=== PATIENT | female | born 1950 | race Caucasian/White ===

== ENCOUNTER 2019-12-31 17:23 | Emergency (ER) | payer MEDICARE, SELFPAY ==
[2019-12-31 18:02] VITALS: BP 144/63; PULSE 79; RESP 16; TEMP 36.6; O2SAT 97
--- NOTE | 2019-12-31 19:11 | ED.GENADULT ---
HPI - General Adult General Chief complaint: Upper Respiratory Infection Stated complaint: cough and chest congestion Time Seen by Provider: 12/31/19 19:11 Source: patient and RN notes reviewed Mode of arrival: ambulatory Limitations: no limitations History of Present Illness HPI narrative: 69-year-old female complains of upper respiratory infection, sore throat, facial congestion, and facial pain for the past 7 days. Symptoms has increased over the last 4 days with increase coughing and facial congestion and pressure. Severe sinus medication and Tylenol without relief. No facial swelling. Constant dry cough with intermittent productive cough. Rhinorrhea and nasal congestion. Sore throat. Pain bilateral. No high fevers, drooling, neck or throat swelling. No chest pain or shortness of breath. No exacerbation factors. Denies nausea, vomiting, and abdominal pain. Tolerating liquids well. Some parts of this dictation were generated by voice recognition software and may contain typographical and/or grammatical inaccuracies. Related Data Home Medications Medication Instructions Recorded Confirmed amitriptyline 25 mg PO HS 12/31/19 12/31/19 calcium carbonate [Calcium 600] 600 mg PO DAILY 12/31/19 12/31/19 calcium carbonate-vitamin D3 1 tablet PO DAILY 12/31/19 12/31/19 [Calcium with Vitamin D] duloxetine 3 mg PO DAILY 12/31/19 12/31/19 hydrochlorothiazide 12.5 mg PO DAILY 12/31/19 12/31/19 losartan 100 mg PO DAILY 12/31/19 12/31/19 rosuvastatin 10 mg PO DAILY 12/31/19 12/31/19 Allergies Allergy/AdvReac Type Severity Reaction Status Date / Time erythromycin base Allergy Unknown Unknown Verified 12/31/19 18:09 morphine Allergy Unknown Itching Verified 10/23/17 10:34 ciprofloxacin AdvReac Unknown Other Verified 10/23/17 10:26 levofloxacin AdvReac Unknown Other Verified 10/23/17 10:26 Review of Systems Review of Systems: Narrative: CONSTITUTIONAL: Denies fever, chills, sweats. EYES: Denies visual changes, redness, discharge. ENT: Complains of rhinorrhea, congestion, facial congestion and pain, sore throat. Denies otalgia. CARDIOVASCULAR: Denies chest pain, palpitations, edema. RESPIRATORY: Denies dyspnea, wheezing. Complains of dry cough, intermittent productive cough. GASTROINTESTINAL: Denies abdominal pain, nausea, vomiting, diarrhea. GENITOURINARY: Denies dysuria, hematuria, abnormal discharge. SKIN: Denies rash or itching. MUSCULOSKELETAL: Denies acute back pain, joint pain, or myalgia. NEUROLOGIC: Denies numbness or focal weakness. PSYCHIATRIC: Denies anxiety or depression. All systems reviewed & are unremarkable except as noted in HPI and below. [facility] Past Medical History Medical History (Updated 01/07/20 @ 00:51 by JAYDEN Benavides) Anxiety Asthma Fibromyalgia Hypercholesteremia Hypertension Rectocele Surgical History Surgical History (Updated 01/07/20 @ 00:53 by JAYDEN Benavides) History of carpal tunnel surgery History of excision of mass Excision of lipomas of RT and LT posterior arm of subcutaneous History of hysterectomy History of repair of rectocele (Unknown) History of tonsillectomy Family History Family History (Updated 01/07/20 @ 00:54 by JAYDEN Benavides) Mother Hypertension Social History Social History (Updated 12/31/19 @ 19:24 by JAYDEN Benavides) Smoking status: Never smoker Second hand tobacco smoke exposure: No Alcohol intake: never Substance use: never Living arrangements: with family Occupation/Education: retired Gender identity (if verbalized by the patient): Female Comments At time of signature, agree with nurse past medical, surgical, social, and family history. There is no relevant family history pertinent to the presenting complaint. Exam Narrative: Exam Narrative: GENERAL: This is a well-nourished, well-developed patient, in no apparent distress. Talks in full sentences and ambulates with steady gait witho
== END 2019-12-31 19:35 | disposition home or self-care (01) ==
PROVIDERS: Emergency Provider Nurse Practitioner Family
DX: J32.9 Chronic sinusitis, unspecified (principal); E78.00 Pure hypercholesterolemia, unspecified; I10 Essential (primary) hypertension; J45.909 Unspecified asthma, uncomplicated; Z90.711 Acquired absence of uterus with remaining cervical stump
CPT/HCPCS: 99213; G0463

== ENCOUNTER 2020-06-16 10:29 | Emergency (ER) | payer MEDICARE, SELFPAY ==
[2020-06-16 10:40] VITALS: BP 146/66; PULSE 74; RESP 18; TEMP 36.4; O2SAT 100
--- NOTE | 2020-06-16 10:40 | ED.EAR ---
HPI - Ear Problem General Chief complaint: Ear Stated complaint: Drainage from ear Time Seen by Provider: 06/16/20 10:41 Source: patient and RN notes reviewed History of Present Illness HPI Narrative: Patient is a 70-year-old female who presents the urgent care with complaints of drainage out of the left ear this morning. Patient states that she saw some wax on her pillowcase and it worried her due to her recent tube removal from the left ear approximately 1 month ago. Patient states that she has had a station tube dysfunction and has had a tube in the ear in the past. She has a follow-up appointment with her ENT in 2 to 3 months to reevaluate her disorder and symptoms. Patient has not put anything in the ear and denies of any other upper respiratory symptoms or fever. Denies of any pain. No other acute complaints. No acute distress noted. Patient read the plan of care. Related Data Home Medications Medication Instructions Recorded Confirmed amitriptyline 25 mg PO HS 12/31/19 12/31/19 calcium carbonate [Calcium 600] 600 mg PO DAILY 12/31/19 12/31/19 calcium carbonate-vitamin D3 1 tablet PO DAILY 12/31/19 12/31/19 [Calcium with Vitamin D] duloxetine 3 mg PO DAILY 12/31/19 12/31/19 hydrochlorothiazide 12.5 mg PO DAILY 12/31/19 12/31/19 losartan 100 mg PO DAILY 12/31/19 12/31/19 rosuvastatin 10 mg PO DAILY 12/31/19 12/31/19 Allergies Allergy/AdvReac Type Severity Reaction Status Date / Time erythromycin base Allergy Unknown Unknown Verified 06/16/20 10:48 morphine Allergy Unknown Itching Verified 06/16/20 10:48 ciprofloxacin AdvReac Unknown Other Verified 06/16/20 10:48 levofloxacin AdvReac Unknown Other Verified 06/16/20 10:48 Review of Systems Review of Systems: Narrative: CONSTITUTIONAL: Denies fever, chills, or sweats. EYES: Denies visual changes, redness, or discharge. ENT: Reports of left ear fullness and wax drainage CARDIOVASCULAR: Denies chest pain, palpitations, or edema. RESPIRATORY: Denies cough or dyspnea. GASTROINTESTINAL: Denies abdominal pain, nausea, vomiting, or diarrhea. GENITOURINARY: Denies dysuria or hematuria. SKIN: Denies rash or itching. MUSCULOSKELETAL: Denies back pain, joint pain, or myalgia. NEUROLOGIC: Denies headache, numbness, or weakness. All other systems reviewed are negative, except as documented in HPI. [facility] Past Medical History Medical History (Updated 06/16/20 @ 10:52 by JAYDEN Gonzalez) Anxiety Asthma Fibromyalgia Hypercholesteremia Hypertension Rectocele Surgical History Surgical History (Updated 01/07/20 @ 00:53 by JAYDEN Benavides) History of carpal tunnel surgery History of excision of mass Excision of lipomas of RT and LT posterior arm of subcutaneous History of hysterectomy History of repair of rectocele (Unknown) History of tonsillectomy Family History Family History (Updated 01/07/20 @ 00:54 by JAYDEN Benavides) Mother Hypertension Social History Social History (Updated 12/31/19 @ 19:24 by JAYDEN Benavides) Smoking status: Never smoker Second hand tobacco smoke exposure: No Alcohol intake: never Substance use: never Gender identity (if verbalized by the patient): Female Comments At the time of my signature, I reviewed and agree with the nursing past medical, surgical, social, and family history. There is no relevant family history pertinent to the patient complaint. Exam Narrative: Exam Narrative: GENERAL: This is a well-nourished, well-developed patient, in no apparent distress. HEAD: normocephalic, atraumatic. EYES: PERRL. Sclera clear/white. Vision is grossly intact. EARS: External ears normal, scant cerumen noted to the left canal without drainage, erythema, edema. Right auditory canals clear and without drainage, TMs normal without perforation. Hearing grossly intact. NOSE: External nose normal with no obvious nasal discharge, nares without redness, no rhinorrhea. THROAT: Mucous membranes moist NE
== END 2020-06-16 11:00 | disposition home or self-care (01) ==
PROVIDERS: Emergency Provider Nurse Practitioner Family
DX: H93.8X2 Other specified disorders of left ear (principal); J45.909 Unspecified asthma, uncomplicated; M79.7 Fibromyalgia; E78.00 Pure hypercholesterolemia, unspecified; I10 Essential (primary) hypertension
CPT/HCPCS: 99211; G0463

== ENCOUNTER 2022-01-31 17:01 | Emergency (ER) | payer MEDICARE, SELFPAY ==
--- NOTE | 2022-01-31 17:16 | ED.EAR ---
HPI - Ear Problem General Chief complaint: Ear Stated complaint: Ear Pain/Dizziness Time Seen by Provider: 01/31/22 17:16 Source: patient Mode of arrival: ambulatory Limitations: no limitations History of Present Illness HPI Narrative: 71 y/o female presented for c/o left ear pain intermittently for 4 days. Endorses sounds like I am talking in a tunnel. States she felt dizzy/room spinning sensation at the onset during a physical therapy session. Since then she woke with room spinning daily. Taking Dramamine with relief. Today she required 2 Dramamine to stop the dizziness. Takes sinus medication occasionally, started taking it again yesterday. Denies headache/tinnitus, sinus pressure/congestion, cough, sore throat, nausea, vomiting, fever, chills. Hx eustachian tube dysfunction, follows with ENT yearly. MD Complaint: ear pain Related Data Home Medications Medication Instructions Recorded Confirmed amitriptyline 25 mg PO HS 12/31/19 01/31/22 calcium carbonate-vitamin D3 1 tablet PO DAILY 12/31/19 01/31/22 [Calcium with Vitamin D] duloxetine 3 mg PO DAILY 12/31/19 01/31/22 losartan 100 mg PO DAILY 12/31/19 01/31/22 rosuvastatin 10 mg PO DAILY 12/31/19 01/31/22 Allergies Allergy/AdvReac Type Severity Reaction Status Date / Time erythromycin base Allergy Unknown Unknown Verified 01/31/22 17:04 morphine Allergy Unknown Itching Verified 01/31/22 17:04 ciprofloxacin AdvReac Unknown Other Verified 01/31/22 17:04 levofloxacin AdvReac Unknown Other Verified 01/31/22 17:04 Review of Systems Review of Systems: CONSTITUTIONAL: Denies malaise, chills, or fever. EYES: Denies visual changes, redness, or discharge. ENT: Denies rhinorrhea, congestion, sinus pain, and sore throat. Reports ear pain CARDIOVASCULAR: Denies chest pain, palpitations, or edema. RESPIRATORY: Denies cough or dyspnea. GASTROINTESTINAL: Denies abdominal pain, nausea, vomiting, diarrhea SKIN: Denies rash or itching. MUSCULOSKELETAL: Denies myalgia. NEUROLOGIC: Denies headache. All systems reviewed & are unremarkable except as noted in HPI and below PMFSH Past Medical History Medical History (Updated 01/31/22 @ 17:27 by Kayleen Mendoza APRN) Anxiety Asthma Fibromyalgia Hypercholesteremia Hypertension Rectocele Surgical History Surgical History History of carpal tunnel surgery History of excision of mass Excision of lipomas of RT and LT posterior arm of subcutaneous History of hysterectomy History of repair of rectocele (Unknown) History of tonsillectomy Family History Family History Mother Hypertension Social History Social History Smoking status: Never smoker Second hand tobacco smoke exposure: No Alcohol intake: never Substance use: never Gender identity (if verbalized by the patient): Female Comments At time of signature, agree with nursing past medical, surgical, social and family history. There is no relevant family history pertinent to the presenting complaint Exam Narrative: GENERAL: Well-appearing HEAD: Normocephalic EYES: conjunctivae clear ENT: Nares clear. Mucous membranes moist.Left canal erythematous, bulging erythematous TM with fluid bubbles; right TM pearly turner with dull light reflex; no tragal tenderness. Oropharynx not erythematous without lesions. NECK: Supple. No lymphadenopathy CHEST: Clear to auscultation, breath sounds equal. HEART: Regular rate and rhythm. No murmur heard. SKIN: Warm, dry, no rash. NEURO: Alert and oriented x3. PSYCH: Normal mood and affect Course Course Emergency Course: Patient is aware of diagnosis, understands and agrees to treatment plan. Anticipatory guidance given. Patient agrees to follow-up as directed and is aware of reasons to seek care at the emergency department. Portions of this record may have be
[2022-01-31 17:17] VITALS: BP 142/59; PULSE 74; RESP 20; TEMP 36.7; O2SAT 100
== END 2022-01-31 17:30 | disposition home or self-care (01) ==
PROVIDERS: Emergency Provider Nurse Practitioner Family
DX: H66.92 Otitis media, unspecified, left ear (principal); J45.909 Unspecified asthma, uncomplicated; M79.7 Fibromyalgia; E78.00 Pure hypercholesterolemia, unspecified; I10 Essential (primary) hypertension
CPT/HCPCS: 99213; G0463

== ENCOUNTER 2023-04-28 16:13 | Emergency (ER) | payer MEDICARE, SELFPAY ==
--- NOTE | ~2023-04-28 | XR_ITS ---
EXAM: XR hip RT min 2V DATE: 04/28/2023 16:43 HISTORY: TWISTING INJURY, ANT PAIN WITH HIP FLEXION . COMPARISON: None available. FINDINGS: Normal mineralization. No fracture or dislocation. No lytic or blastic lesion. Lumbar dege nerative disc disease. Moderate osteitis pubis. Mild right hip osteoarthritis. No erosion or perioste al change. Soft tissues within normal limits. Pelvic phleboliths. IMPRESSION: No acute osseous finding in the right hip. Reviewed, dictated and finalized at location K.
[2023-04-28 16:22] VITALS: BP 148/63; PULSE 81; RESP 16; TEMP 37.4; O2SAT 97
--- NOTE | 2023-04-28 16:23 | ED.FALL ---
HPI - Fall General Chief Complaint: Abdominal Pain Stated Complaint: Fall Injury/Lower Right Side Pain Time Seen by Provider: 04/28/23 16:23 Source: patient and RN notes reviewed History of Present Illness HPI Narrative: Patient is a 73-year-old female presents to urgent care with complaints of right lower abdominal pain with movement. Patient states that she fell on Wednesday and believe she fell onto the left side however she has had some right-sided abdominal pain since the fall. Patient states pain is only exacerbated with laying to sitting position and lifting her legs. Patient states she noticed it while laying on a CT table today, for an unrelated issue. Patient states that she does have fibromyalgia and typically has costochondritis as well as hip discomfort. Patient denies any fever, nausea, vomiting or diarrhea. No other acute complaints. No acute distress noted. Patient aware of plan of care. Some parts of this dictation were generated by voice recognition software and may contain typographical and/or grammatical inaccuracies. Related Data Home Medications Medication Instructions Recorded Confirmed amitriptyline 25 mg tablet 25 mg PO HS 12/31/19 04/28/23 calcium carbonate 600 mg-vitamin 1 tablet PO DAILY 12/31/19 04/28/23 D3 10 mcg (400 unit) tablet (Calcium with Vitamin D) duloxetine 20 mg capsule,delayed 3 mg PO DAILY 12/31/19 04/28/23 release losartan 100 mg tablet 100 mg PO DAILY 12/31/19 04/28/23 rosuvastatin 10 mg tablet 10 mg PO DAILY 12/31/19 04/28/23 dicyclomine 10 mg capsule 10 mg PO TID 04/28/23 04/28/23 hydrochlorothiazide 25 mg tablet mg 04/28/23 04/28/23 meloxicam 7.5 mg tablet 7.5 mg PO DAILY 04/28/23 04/28/23 pantoprazole 40 mg tablet,delayed mg PO 04/28/23 release Allergies Allergy/AdvReac Type Severity Reaction Status Date / Time erythromycin base Allergy Unknown Unknown Verified 04/28/23 16:24 morphine Allergy Unknown Itching Verified 04/28/23 16:24 ciprofloxacin AdvReac Unknown Other Verified 04/28/23 16:24 levofloxacin AdvReac Unknown Other Verified 04/28/23 16:24 Review of Systems Review of Systems: CONSTITUTIONAL: Denies fever, chills, or sweats. EYES: Denies visual changes, redness, or discharge. ENT: Denies rhinorrhea, congestion, sore throat, or otalgia. CARDIOVASCULAR: Denies chest pain, palpitations, or edema. RESPIRATORY: Denies cough or dyspnea. GASTROINTESTINAL: Reports of right lower abdominal pain with movement GENITOURINARY: Denies dysuria or hematuria. SKIN: Denies rash or itching. MUSCULOSKELETAL: Denies back pain, joint pain, or myalgia. NEUROLOGIC: Denies headache, numbness, or weakness. All other systems reviewed are negative, except as documented in HPI. [facility] Past Medical History Medical History (Updated 04/28/23 @ 17:29 by JAYDEN Gonzalez) Anxiety Asthma Fibromyalgia Hypercholesteremia Hypertension Rectocele Surgical History Surgical History History of carpal tunnel surgery History of excision of mass Excision of lipomas of RT and LT posterior arm of subcutaneous History of hysterectomy History of repair of rectocele (Unknown) History of tonsillectomy Family History Family History Mother Hypertension Social History Social History Smoking status: Never smoker Second hand tobacco smoke exposure: No Alcohol intake: never Substance use: never Living arrangements: with family Occupation/Education: retired Gender identity (if verbalized by the patient): Female Comments At the time of my signature, I reviewed and agree with the nursing past medical, surgical, social, and family history. There is no relevant family history pertinent to the patient complaint. Exam Narrative: GENERAL: This is a well-nourished, well-developed patient, in no ap
== END 2023-04-28 17:44 | disposition home or self-care (01) ==
PROVIDERS: Emergency Provider Nurse Practitioner Family; PCP Family Medicine
DX: S39.011A Strain of muscle, fascia and tendon of abdomen, initial encounter (principal); W19.XXXA Unspecified fall, initial encounter; J45.909 Unspecified asthma, uncomplicated; M79.7 Fibromyalgia; E78.00 Pure hypercholesterolemia, unspecified; I10 Essential (primary) hypertension
CPT/HCPCS: 73502; 81003; 87086; 87088; 99213; G0463

== ENCOUNTER 2023-10-15 18:10 | Emergency (ER) | payer MEDICARE, SELFPAY ==
[2023-10-15 18:18] VITALS: BP 143/64; PULSE 78; RESP 16; TEMP 36.6; O2SAT 97
--- NOTE | 2023-10-15 18:21 | ED.URI ---
HPI - URI/Sore Throat General Chief Complaint: Upper Respiratory Infection Stated Complaint: Cough Time Seen by Provider: 10/15/23 18:21 Source: patient, RN notes reviewed and old records reviewed Mode of arrival: ambulatory Limitations: no limitations History of Present Illness HPI Narrative: 73-year-old female who presents to [facility] with complaints of cough with congestion, history of sinus problems and post nasal drainage. Patient reports that she had this cough about a year of so ago and ENT gave her 2 rounds of azithromycin and cleared the cough and had no cough till recently again. Patient states that she does hav a ear tube toher left ear and has not been experiencing any pain. Patient reports that she has been taking OTC sinus medication. MD elicited complaint: cough, rhinorrhea and nasal congestion Pertinent past history: sinusitis Onset (ago): day(s) (10) Severity: moderate Able to tolerate fluids by mouth: Yes Treatments prior to arrival: other (sinus medication) Related Data Home Medications Medication Instructions Recorded Confirmed amitriptyline 25 mg tablet 25 mg PO HS 12/31/19 10/15/23 calcium carbonate 600 mg-vitamin 1 tablet PO DAILY 12/31/19 10/15/23 D3 10 mcg (400 unit) tablet (Calcium with Vitamin D) duloxetine 20 mg capsule,delayed 60 mg PO DAILY 12/31/19 10/15/23 release losartan 100 mg tablet 100 mg PO DAILY 12/31/19 10/15/23 rosuvastatin 10 mg tablet 10 mg PO DAILY 12/31/19 10/15/23 hydrochlorothiazide 25 mg tablet 25 mg PO DIRECTED 04/28/23 10/15/23 pantoprazole 40 mg tablet,delayed 40 mg PO DIRECTED 04/28/23 10/15/23 release Allergies Allergy/AdvReac Type Severity Reaction Status Date / Time erythromycin base Allergy Unknown Unknown Verified 10/15/23 18:30 morphine Allergy Unknown Itching Verified 10/15/23 18:30 ciprofloxacin AdvReac Unknown Other Verified 10/15/23 18:30 levofloxacin AdvReac Unknown Other Verified 10/15/23 18:30 Review of Systems Review of Systems: CONSTITUTIONAL: Denies malaise, chills, sweats, or fever. EYES: Denies visual changes, redness, or discharge. ENT: Reports rhinorrhea, congestion, sinus pain,no otalgia and no sore throat. CARDIOVASCULAR: Denies chest pain, palpitations, or edema. RESPIRATORY: Reports cough.? Denies dyspnea. GASTROINTESTINAL: Denies abdominal pain, nausea, vomiting, diarrhea SKIN: Denies rash or itching. MUSCULOSKELETAL: Denies myalgia. NEUROLOGIC: Denies headache. All systems reviewed & are unremarkable except as noted in HPI and below PMFSH Past Medical History Medical History Anxiety Asthma Fibromyalgia History of sinus problem Hypercholesteremia Hypertension Rectocele Surgical History Surgical History History of carpal tunnel surgery History of excision of mass Excision of lipomas of RT and LT posterior arm of subcutaneous History of hysterectomy History of repair of rectocele (Unknown) History of tonsillectomy Family History Family History Mother Hypertension Social History Social History Smoking status: Never smoker Second hand tobacco smoke exposure: No Alcohol intake: never Substance use: never Living arrangements: with family Occupation/Education: retired Gender identity (if verbalized by the patient): Female Comments At time of signature, agree with nursing past medical, surgical, social and family history. There is no relevant family history pertinent to the presenting complaint Exam Narrative: GENERAL: Well-appearing, well-nourished, and in no acute distress. HEAD: Normocephalic EYES: PERRLA, conjunctivae clear ENT: Nares clear, turbinates edematous and erythematous, light yellow discharge. Mucous membranes moist. TM pearly turner wi
== END 2023-10-15 18:50 | disposition home or self-care (01) ==
PROVIDERS: Emergency Provider Registered Nurse; PCP Family Medicine
DX: J01.40 Acute pansinusitis, unspecified (principal); R05.1 Acute cough; I10 Essential (primary) hypertension; Z79.899 Other long term (current) drug therapy
CPT/HCPCS: 99213; G0463

== ENCOUNTER 2023-10-26 17:29 | Emergency (ER) | payer MEDICARE, SELFPAY ==
--- NOTE | ~2023-10-26 | XR_ITS ---
EXAMINATION: XR hip BI 2V w AP pelvis DATE: 10/26/2023 18:45 INDICATION: Pelvic pain. Fall. TECHNIQUE: An anteroposterior view of the pelvis and 2 views of each hip were obtained. COMPARISON: Right hip radiographs 04/28/2023 FINDINGS: Bone alignment is normal. No fracture. There is mild osteoarthritis of the hips. Osteitis p ubis is noted. There is mild osteoarthritis of the sacroiliac joints. There is at least mild lumbar s pondylosis. IMPRESSION: 1. Mild osteoarthritis of the hips. Reviewed, dictated and finalized at location E. [employer]
[2023-10-26 17:39] VITALS: BP 157/76; PULSE 88; RESP 18; TEMP 36.6; O2SAT 97
--- NOTE | 2023-10-26 19:07 | ED.GENADULT ---
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 She indicates she had a fall back this past summer. She was evaluated here shortly thereafter. She had an x-ray that showed osteitis pubis. She has a history of frequent falls as a result of her left leg giving out . She had another ground level mechanical fall about one month ago. She was in public at the time of the fall. She landed on her left side and injured her left hip, left shoulder and fifth digit of the left foot. She hit her head but did not lose consciousness. She has noted a pressure in her anterior lower pelvis for about one month. Pain in her left shoulder, hip and 5th digit left foot have essentially resolved. She contacted her primary care doctor who recommended she come here for x-rays. She rates her pain at rest at 5/10 and it increases to 7/10 with certain movement. She denies loss of ROM. She is not aware of any urinary symptoms. She has an underlying history of osteopenia but it was improved on her most recent DEXA. She has some chronic pain secondary to fibromyalgia, for which she takes amitriptyline and Cymbalta. Related Data Home Medications Medication Instructions Recorded Confirmed amitriptyline 25 mg tablet 25 mg PO HS 12/31/19 10/15/23 calcium carbonate 600 mg-vitamin 1 tablet PO DAILY 12/31/19 10/15/23 D3 10 mcg (400 unit) tablet (Calcium with Vitamin D) duloxetine 20 mg capsule,delayed 60 mg PO DAILY 12/31/19 10/15/23 release losartan 100 mg tablet 100 mg PO DAILY 12/31/19 10/15/23 rosuvastatin 10 mg tablet 10 mg PO DAILY 12/31/19 10/15/23 hydrochlorothiazide 25 mg tablet 25 mg PO DIRECTED 04/28/23 10/15/23 pantoprazole 40 mg tablet,delayed 40 mg PO DIRECTED 04/28/23 10/15/23 release Allergies Allergy/AdvReac Type Severity Reaction Status Date / Time erythromycin base Allergy Unknown Unknown Verified 10/15/23 18:30 morphine Allergy Unknown Itching Verified 10/15/23 18:30 ciprofloxacin AdvReac Unknown Other Verified 10/15/23 18:30 levofloxacin AdvReac Unknown Other Verified 10/15/23 18:30 Review of Systems Review of Systems: CONSTITUTIONAL: Denies fever, chills, or sweats. EYES: Denies visual changes, redness, or discharge. ENT: Denies rhinorrhea, congestion, sore throat, or otalgia. CARDIOVASCULAR: Denies chest pain, palpitations, or edema. RESPIRATORY: Denies cough or dyspnea. GASTROINTESTINAL: Denies abdominal pain, nausea, vomiting, or diarrhea. GENITOURINARY: Denies dysuria or hematuria. SKIN: Denies rash or itching. MUSCULOSKELETAL: Reports a pressure in the anterior lower pelvis NEUROLOGIC: Denies headache, numbness, dizziness, or weakness. PSYCHIATRIC: Denies anxiety or depression. [facility] Past Medical History Medical History Anxiety Asthma Fibromyalgia History of sinus problem Hypercholesteremia Hypertension Osteitis pubis Rectocele Surgical History Surgical History History of carpal tunnel surgery History of excision of mass Excision of lipomas of RT and LT posterior arm of subcutaneous History of hysterectomy History of repair of rectocele (Unknown) History of tonsillectomy Family History Family History Mother Hypertension Social History Social History Smoking status: Never smoker Second hand tobacco smoke exposure: No Alcohol intake: never Substance use: never Living arrangements: with family Occupation/Education: retired Gender identity (if verbalized by the patient): Female Exam Narrat
== END 2023-10-26 19:15 | disposition home or self-care (01) ==
PROVIDERS: Emergency Provider Nurse Practitioner
DX: M86.8X8 Other osteomyelitis, other site (principal); M16.0 Bilateral primary osteoarthritis of hip; I10 Essential (primary) hypertension; J45.909 Unspecified asthma, uncomplicated; N39.0 Urinary tract infection, site not specified
CPT/HCPCS: 73521; 81003; 87086; 87088; 99213; G0463

== ENCOUNTER 2025-02-16 15:17 | Outpatient (CLI) | payer MEDICARE, SELFPAY ==
--- NOTE | ~2025-02-16 | XR_ITS ---
Supine and upright views of the abdomen Clinical history: Right kidney stone Findings: Bowel gas pattern is nonspecific. No evidence for obstruction or free air. No abnormal mass lesion or calcification is seen. Osseous structures are intact. Impression: No definite stone seen. Reviewed, dictated and finalized at [facility]. Impression: No definite stone seen.
--- OUTSIDE RECORDS SUMMARY | 2025-02-16 15:24 | XMS_ITS | Clinical Summary ---
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 This disclosure is being madepursuant to the Care Everywhere program and may not contain all information available regarding this patient. Last updated 18.[facility] Allergies Active Allergy Reactions Criticality Noted Date Comments Ciprofloxacin Other 12/09/2018 Tendonitis Erythromycin Other 12/09/2018 Abdominal pain Levofloxacin Other 12/09/2018 Tendonitis Morphine Vomiting 12/09/2018 Medications * Be aware that medications may not be up to date on this document. Alwaysverify current medications with the patient. Medication Sig Dispensed Refills Start Date End Date Status fish oil/omega-3 fatty acids (PROMEGA;CARDI-OMEGA 3) 1000 MG capsule Take 1,000 mg by mouth daily with food Active ranitidine (ZANTAC) 150 MG capsule Take 150 mg by mouth daily. Active ondansetron (ZOFRAN) 4 MG tablet Take 4 mg by mouth every 6 hours as needed for Nausea/Vomiting Active hydroCHLOROthiazide (HYDRODIURIL) 12.5 MG Take 12.5 mg by mouth once daily Active losartan (COZAAR) 100 MG tablet Take 100 mg by mouth once daily Active omeprazole (PRILOSEC) 20 MG capsule Take 20 mg by mouth daily before breakfast Active rosuvastatin (CRESTOR) 10 MG tablet Take 10 mg by mouth once daily Active Cod Liver Oil Take 415 mg by mouth once daily Active Calcium Carbonate (CALCIUM 600 PO) Take 1 tablet by mouth once daily Active Cholecalciferol (VITAMIN D-3) 1000 UNITS Take 2 capsules by mouth once daily Active FLUTICASONE PROPIONATE, NASAL, NA [place] 2 sprays into the nose once daily Active Probiotic Product (PROBIOTIC DAILY) capsule Take 1 capsule by mouth once daily [place] Active Rwpewltqgrves-XZZM-Bq aifenesin (TYLENOL SINUS SEVERE PO) Take by mouth as needed Active FIBER PO Take 1 tablet by mouth once daily [place] Fiber--2-3/ day Active promethazine (PHENERGAN) 25 MG tablet Take 1 tablet by mouth every 6 hours as needed for Nausea/Vomiting 28 tablet 12/09/2018 Active Additional Information Patient not taking.Reported on 02/16/2019 polyethylene glycol 3350 (MIRALAX) powderIndications:Chr onic idiopathic constipation Take 17 g by mouth once daily 238 g 12/09/2018 Active loratadine (CLARITIN) 10 MG tablet Take 10 mg by mouth once daily as needed for Runny Nose or Allergies Active Melatonin 3 MGIndications:taking 3-6mg prn Take 3 mg by mouth as needed Reasons: taking 3-6mg prn Active sucralfate (CARAFATE) 1 GM tablet Take 1 g by mouth as needed Active acetaminophen (TYLENOL) 325 MG tablet Take 650 mg by mouth every 8 hours as needed for Fever or Pain Maximum allowable Acetaminophen amount = 4 Grams (4000 mg) / 24 hours. Active hydroxypropyl methylcellulose 0.3% (SYSTANE OVERNIGHT THERAPY) 0.3 % ophthalmic gel 1 drop 3 times daily as needed for Dry Eyes Active Propylene Glycol (SYSTANE COMPLETE OP) Act jerry Active Problems Problem Noted Date Diagnosed Date Nausea with vomiting 08/26/2009 Nausea with vomiting 08/26/2009 Family History Medical History Relation Name Comments CAD (Coronary Artery Disease) Father Cancer - Ovarian Maternal Aunt Cancer - Colon Maternal Grandmother CAD (Coronary Artery Disease) Mother CVA Mother Hypertension Mother Leukemia Other CAD (Coronary Artery Disease) half-brother 2 Cancer - Lung half-brother 3 Relation Name Status Comments Brother Alive Father (Age 81) Maternal Aunt Maternal Grandmother Mother (Age 65) Other Sister 1 Alive Sister 2 Alive half-brother 1 Alive half-brother 2 (Age 70's) half-brother 3 (Age 40's) Social History Tobacco Use Types Packs/Day Years Used Date Smoking Tobacco: Never Smokeless Tobacco: Never Alcohol Use Standard Drinks/Week Comments Yes 0 (1 standard drink = 0.6 oz pur e alcohol) Rare Sex and Gender Information Value Date Recorded Sex Assigned at Female 02/26/2022 4:47 PM CDT Gender Identity Female 02/26/2022 4:47 PM CDT Sexual Orientation Straight 02/26/2022 4: 47 PM CDT Last Filed Vital Signs Vital Sign Reading Time Taken Comments Blood Pressure 137/68 02/16/2019 9:44 AM CDT Pulse 61 02/16/2019 9:44 AM CDT Temperature 36.3 C (97.3 F) 02/16/2019 9:17 AM CDT Respiratory Rate 16 02/16/2019 9:27 AM CDT Oxygen Saturation 97% 02/16/2019 9:44 AM CDT Inhaled Oxygen Concentration - - Weight 79.4 kg (175 lb) 02/16/2019 8:07 AM CDT Height 157.5 cm (5' 2 ) 02/16/2019 8:07 AM CDT Body Mass Index 32.01 02/16/2019 8:07 AM CDT Plan of Treatment Health Maintenance Due Date Last Done Comments BONE DENSITY TESTING 1950 MEDICARE AWV 12 MONTHS 1950 HEPATITIS C SCREENING 02/26/1966 DTAP/TDAP/TD VACCINES (1 - Tdap) 1967 PNEUMOCOCCAL VACCINE 50+ (1 of 1 - PCV) 1998 ZOSTER VACCINE (1 of 2) 1998 SCREENING FOR DIABETES 12/21/2021 9, 08/28/2009, 08/27/2009 Respiratory Syncytial Virus (RSV) Vaccine Pt: or over 60 yrs (1 - 1-dose 75+ series) 2023 COVID-19 VACCINE ( - season) 2024 08/08/2021, 01/08/2021, 12/11/2020 DEPRESSION SCREENING 11/08/2024 INFLUENZA VACCINE (Season Ended) 2025 07/23/2023, 09/16/2022, 07/21/2021, Additional history exists HEPATITIS B VACCINE Aged Out No longe r eligible based on patient's age to complete this topic HIB VACCINE Aged Out No longer eligi ble based on patient's age to complete this topic HPV VACCINE Aged Out No longer eligi ble based on patient's age to complete this topic MENINGOCOCCAL (Group B) VACCINE SHARED DECISION-MAKING Aged Out No longer eligible based on patient's age to complete this topic MENINGOCOCCAL GROUPS A/C/Y/W VACCINE Aged Out No longer eligible based on patient's age to complete this topic Goals Goal Patient Goal Type Associated Problems Recent Progress Patient-Stated? Author Safety General On track( 8:39 AM POWDER PRESS OPERATOR) Clari Waddell, FAUZIA Note: Expected end date: Ongoing Interventions: Your nurse will assess your risk for falls/injury each visit Use appropriate and safe transfer methods Medication Management General On track( 8:39 AM POWDER PRESS OPERATOR) Clari Waddell, FAUZIA Note: Expected end date: Ongoing Interventions: Take all medications as prescribed Let your doctor know right away about any changes in your medications Procedures Procedure Name Priority Date/Time Associated Diagnosis Comments BASIC METABOLIC PANEL (CALCIUM TOTAL) STAT 12/21/2018 8:35 AM POWDER PRESS OPERATOR Preop examination from Last 3 Months or Most Recently Relevant to Health Maintenance Results * (ABNORMAL) BASIC METABOLIC PANEL (CALCIUM TOTAL) (12/21/2018 8:35 AM POWDER PRESS OPERATOR) BUN 22 7 - 26 mg/dL 12/21/2018 8:[address] [facility] Creatinine 0.7 0.6 - 1.2 mg/dL 12/21/2018 8:[address] [facility] Sodium 140 136 - 145 mmol/L 12/21/2018 8:[address] [facility] Potassium 3.6 3.5 - 4.5 mmol/L 12/21/2018 8:[address] [facility] Chloride 104 98 - 107 mmol/L 12/21/2018 8:59 AM [facility] CO2 26 22 - 29 mmol/L 12/21/2018 8:59 AM [facility] Glucose 95 70 - 115 mg/dL 12/21/2018 8:59 AM [facility] Calcium 9.4 8.4 - 10.2 mg/dL 12/21/2018 8:59 AM [facility] Anion Gap 14 8 - 18 12/21/2018 8:59 AM [facility] BUN/Creatinine Ratio 31(H) 7 - 23 12/21/2018 8:59 AM [facility] Osmolality Calculated 293 270 - 300 mOsm/kg 12/21/2018 8:59 AM [facility] eGFR >60 >60 mL/min/1.7 3 m2 12/21/2018 8:59 AM [facility] Blood BLOOD SPECIMEN / Unknown Venipuncture / Unknown 12/21/2018 8:35 AM POWDER PRESS OPERATOR 12/21/2018 8:40 AM [facility] - CHEMISTRY ORDERABLES [facility] [address] [phone] from Last 3 Months or Most Recently Relevant to Health Maintenance Advance Directives * Full Code (Latest Code Status on File) Date Activated Date Inactivated Comments 08/26/2009 9:21 PM 08/30/2009 2:35 PM Care Teams Plant Pathology Teacher Relationship Specialty Start Date End Date Bonnie Jolley MD PCP - General 12/09/18
--- OUTSIDE RECORDS SUMMARY | 2025-02-16 15:25 | XMS_ITS | Clinical Summary ---
Author Organization [address] Address [address] [place] [id number] Care Team Providers Care Language Interpreter Name Role Phone Bonnie Jolley MD Unavailable [phone] Jory Paz NP Primary Care Provider + Allergies Active Allergy Reactions Criticality Noted Date Comments Ciprofloxacin Other (See comments) Medium 07/19/2018 Tendonitis got tendenitis in ankle per patient Note: tendonitis from it Erythromycin Stomach upset,Nausea Only,Vomiting,Nausea only Low 03/30/2018 Other reaction(s): Other, Vomiting Abdominal pain Fluocinolone Other (See comments) Low 03/23/2017 PT STATES DOCTOR DOES NOT WANT HER TO TAKE Other reaction(s): Other (see Comments) PT STATES DOCTOR DOES NOT WANT HER TO TAKE, developed tendonitis Levofloxacin Other (See comments) Low 03/30/2018 Other reaction(s): Other Tendonitis Note: tendonitis from taking per pt Morphine Vomiting,Nausea only Low 03/30/2018 Medications losartan (COZAAR) 100 mg tablet TAKE 1 TABLET BY MOUTH EVERY DAY 8 Active hydroCHLOROthiazide (HYDRODIURIL) 25 mg tablet Take 1 tablet (25 mg total) by mouth 9 Active acetaminophen (TYLENOL) 500 mg tablet Take 1 tablet (500 mg total) by mouth Active melatonin tablet Take 3 tablets (9 mg total) by mouth Active albuterol HFA (PROVENTIL HFA,VENTOLIN HFA,PROAIR HFA) 90 mcg/actuation inhaler Active ascorbic acid (VITAMIN C) 500 mg tablet,chewable Take 1 tablet/chew tab (500 mg total) by mouth Active DULoxetine DR (CYMBALTA) 20 mg capsule 1 9 Active calcium carbonate (OS-MELINA) 1,500 mg (600 mg elemental) tablet Take 1 tablet (1,500 mg total) by mouth Active amitriptyline (ELAVIL) 25 mg tablet 1 Active dicyclomine (BENTYL) 10 mg capsule Take 1 capsule (10 mg total) by mouth 3 (three) times a day as needed 1 Active wheat dextrin (BENEFIBER HEALTHY SHAPE ORAL) Take by mouth daily Active lactobacillus combination no.8 (ADULT PROBIOTIC ORAL) Take by mouth Active carica papaya tablet Take by mouth Active rosuvastatin (CRESTOR) 10 mg tablet Take 1 tablet (10 mg total) by mouth daily Active cholecalciferol (VITAMIN D-3) 1,000 unit Take 1 tablet/capsu le (1,000 Units total) by mouth daily Active ondansetron ODT (ZOFRAN-ODT) 4 mg disintegrating tablet Take 1 tablet (4 mg total) by mouth every 8 (eight) hours as needed 3 Active estradioL (ESTRACE) 0.01 % (0.1 mg/gram) vaginal cream Insert 2 g into the vagina daily 2x aweek Active pantoprazole DR (PROTONIX) 20 mg EC tabletIndications:C hronic cough Take 1 tablet (20 mg total) by mouth daily 90 tablet 3 4 10/18/20 25 Active Active Problems Problem Noted Date Diagnosed Date Aneurysm 02/13/2025 Tongue sore 12/22/2024 Assessment & Plan (12/22/2024 9:08 AM ACTIVITY SPECIALIST): Currently resolved, Agree with Dental evaluation for possible dental contribution though suspect viral exanthem from viral pharyngitis two weeks ago. Benign paroxysmal positional vertigo of left ear 11/23/2024 Assessment & Plan (12/22/2024 9:05 AM ACTIVITY SPECIALIST): Left Benign Positional Vertigo treated with Marcial maneuver today 64 ounces of caffeine free and soda free fluid daily If no improvement in room spinning, will plan in MRI Brain Assessment & Plan (11/23/2024 10:47 AM ACTIVITY SPECIALIST): Left benign positional vertigo treated with Marcial maneuver today Follow up in 4 weeks to recheck Post-Marcial instructions discussed and Handout provided Dysfunction of left eustachian tube 01/14/2024 Assessment & Plan (10/18/2024 11:19 AM ACTIVITY SPECIALIST): Decrease pantoprazole to 20 mg daily first thing in the morning 30 minutes before other medications. Then if cough continues to be improved for two months, may decrease to 10 mg for 1-2 months, then may stop this while continuing Famotidine. Then consider slowly decreasing famotidine to least amount possible Avoid ear cleaning techniques Avoid water to ears Follow up one year, earlier with ear drainage Assessment & Plan (01/14/2024 11:32 AM ACTIVITY SPECIALIST): Take Protonix first thing in the morning 30-60 minutes before a meal or other medication, start Pepcid (famotidine) 40 mg at bedtime Avoid ear cleaning techniques Avoid water to ears Call if no improvement in cough in 3 months Follow up in 9 months for left ear tube check Double vision 11/11/2023 Assessment & Plan (01/18/2025 1:12 PM CDT): MRI Brain Centralized Scheduling: 64 ounces of caffeine free and soda free fluid daily Elevate head of bed at night Follow up with eye doctor Fall 11/11/2023 Chronic cough 09/23/2022 Assessment & Plan (10/18/2024 11:19 AM ACTIVITY SPECIALIST): Decrease pantoprazole to 20 mg daily first thing in the morning 30 minutes before other medications. Then if cough continues to be improved for two months, may decrease to 10 mg for 1-2 months, then may stop this while continuing Famotidine. Then consider slowly decreasing famotidine to least amount possible Avoid ear cleaning techniques Avoid water to ears Follow up one year, earlier with ear drainage Assessment & Plan (01/14/2024 11:32 AM ACTIVITY SPECIALIST): Take Protonix first thing in the morning 30-60 minutes before a meal or other medication, start Pepcid (famotidine) 40 mg at bedtime Avoid ear cleaning techniques Avoid water to ears Call if no improvement in cough in 3 months Follow up in 9 months for left ear tube check Assessment & Plan (09/23/2022 11:40 AM ACTIVITY SPECIALIST): Zpak with a meal daily Call if no improvement with Cough Consider Left myringotomy with T-tube placement to relieve left ear pressure, not considerably improve hearing Myringitis 08/26/2022 Assessment & Plan (03/09/2023 3:38 PM CDT): Avoid ear cleaning techniques Avoid water to ears Ciprofloxacin and Dexamethasone 5 drops into LEFT EAR, NOT EYE, twice daily for 10 days Will plan for in Office Left myringotomy with T-tube placement Risks and complications discussed including anesthesia, bleeding, infection, hearing loss, ear tubes may fall out early, fall inwards, stay in longer than a few years, get clogged, fall out and leave a hole in the ear drum that would need to be patched, drain clear fluid. After T-tube placement, will plan for CT temporal bone Assessment & Plan (09/23/2022 12:55 PM ACTIVITY SPECIALIST): Improved Zpak with a meal daily Call if no improvement with Cough Consider Left myringotomy with T-tube placement to relieve left ear pressure, not considerably improve hearing Assessment & Plan (08/26/2022 4:04 PM CDT): Tobradex 7 drops to the LEFT ear twice daily for 14 days Follow up in 3-4 weeks, consider CT temporal bone Acute recurrent maxillary sinusitis 08/10/2022 Assessment & Plan (08/10/2022 5:04 PM CDT): Continue Flonase and Ipratropium daily Start Cefdinir with a meal twice daily for 14 days Avoid ear cleaning techniques Avoid water to ears Consider cetirizine 10 mg (Zyrtec) daily Agree with Neurology Otorrhea of left ear 08/10/2022 Assessment & Plan (04/16/2023 1:25 PM CDT): Avoid ear cleaning techniques Avoid water to left ear Follow up in 9 months for left ear tube check, earlier with ear drainage CT temporal bone scheduled - will call with results Assessment & Plan (04/02/2023 2:33 PM CDT): Left myringotomy with T-tube placement in the Office today Risks and complications discussed including anesthesia, bleeding, infection, hearing loss, ear tubes may fall out early, fall inwards, stay in longer than a few years, get clogged, fall out and leave a hole in the ear drum that would need to be patched, drain clear fluid. CT temporal bone Ciprofloxacin 7 drops into LEFT EAR, NOT EYE, twice daily for 7 days How to Use Ear Drops Assessment & Plan (03/09/2023 3:38 PM CDT): Avoid ear cleaning techniques Avoid water to ears Ciprofloxacin and Dexamethasone 5 drops into LEFT EAR, NOT EYE, twice daily for 10 days Will plan for in Office Left myringotomy with T-tube placement Risks and complications discussed including anesthesia, bleeding, infection, hearing loss, ear tubes may fall out early, fall inwards, stay in longer than a few years, get clogged, fall out and leave a hole in the ear drum that would need to be patched, drain clear fluid. After T-tube placement, will plan for CT temporal bone Assessment & Plan (08/26/2022 4:03 PM CDT): Tobradex 7 drops to the LEFT ear twice daily for 14 days Follow up in 3-4 weeks, consider CT temporal bone Assessment & Plan (08/10/2022 5:04 PM CDT): Continue Flonase and Ipratropium daily Start Cefdinir with a meal twice daily for 14 days Avoid ear cleaning techniques Avoid water to ears Consider cetirizine 10 mg (Zyrtec) daily Agree with Neurology Sensorineural hearing loss (SNHL) of both ears 0 06/17/2022 Assessment & Plan (06/17/2022 9:52 AM CDT): Hearing and Balance Testing 64 ounces of caffeine free and soda free fluid daily [facility] Will obtain previous work up from [facility] [employer] [facility] Dizziness 06/17/2022 Assessment & Plan (01/18/2025 1:07 PM CDT): MRI Brain Centralized Scheduling: 64 ounces of caffeine free and soda free fluid daily Elevate head of bed at night Assessment & Plan (06/17/2022 9:52 AM CDT): Hearing and Balance Testing 64 ounces of caffeine free and soda free fluid daily [facility] Will obtain previous work up from [facility] [employer] [facility] Allergic purpura 01/23/2022 Gastroparesis 01/23/2022 IBS (irritable bowel syndrome) 01/23/2022 Mild persistent asthma 01/23/2022 Esophageal disorder 01/23/2022 Spondylolisthesis of lumbar region 08/22/2021 Synovial cyst of lumbar spine 08/22/2021 Asthma 04/14/2021 Family history of cardiovascular disease 021 Chest pain, unspecified 04/14/2021 Hypercholesterolemia 04/14/2021 Osteoporosis 04/14/2021 Palpitations 04/14/2021 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 Shortness of breath 04/14/2021 Polyp of colon 02/07/2021 Osteoarthritis of cervical spine 03/15/2019 Benign breast lumps 03/30/2018 Constipation 03/30/2018 Hypertension 03/30/2018 Chronic pain 03/30/2018 Frequent urination 03/30/2018 Elbow pain 03/30/2018 Heartburn 03/30/2018 Hernia, hiatal 03/30/2018 Low back pain 03/30/2018 Numbness 03/30/2018 Sciatica 03/30/2018 Spinal curvature 03/30/2018 Wears glasses 03/30/2018 Anxiety disorder 03/22/2018 Arthritis 03/22/2018 Hypomagnesemia 03/22/2018 Low bone mass 03/22/2018 Resolved Problems Problem Noted Date Diagnosed Date Resolved Date Vertigo of central origin, u nspecified laterality 09/16/2022 12/11/2024 Fatigue 03/30/2018 02/13/2025 Light sensitivity 03/30/2018 02/13/2025 Encounters Date Type Department Care Team Description 02/13/2025 1:45 PM CDT Office Visit [facility] [address] [place] [address] [address] [address] Jg Alves MD Aneurysm (Primary Dx); Dizziness 02/01/2025 Results Follow-Up [facility] [address] [address] Estela Corona DO 01/31/2025 7:57 AM CDT - 01/31/2025 11:59 PM CDT Hospital Encounter [facility] [address] [place] [address] Double vision; Dizziness and giddiness Discharge Disposition: Discharge to home or self care 01/18/2025 1:00 PM CDT Office Visit [facility] [address], [place] [address] Estela Corona DO Double vision (Primary Dx); Dizziness and giddiness; Dizziness 12/22/2024 8:45 AM ACTIVITY SPECIALIST Office Visit [facility] [address] [address] Estela Corona, Benign paroxysmal positional vertigo of left ear (Primary Dx); Tongue sore 12/05/2024 9:15 AM ACTIVITY SPECIALIST Office Visit [facility] [address] [address] Jg Alves MD Dizziness (Primary Dx); Double vision; Fall, subsequent encounter 11/23/2024 10:15 AM ACTIVITY SPECIALIST Office Visit [facility] [address], [place] [address] Estela Corona DO Benign paroxysmal positional vertigo of left ear (Primary Dx) from Last 3 Months Immunizations Immunization Administration Dates Next Due Influenza, Quadrivalent, Hig h Dose, Preservative Free, Intrr 07/21/2021,08/04/2020 Influenza, Quadrivalent, Spl it, Preservative Free, Intramuscular 08/02/2019,07/19/2018 Influenza, Trivalent, High D ose, Split, Preservative Free, Intramuscular 08/04/2020,08/10/2017,07/20/2016,08/23 Influenza, Trivalent, IM (MDV) 08/10/2017,2014 Pneumococcal Conjugate PCV 13 03/17/2016 Pneumococcal Polysaccharide PPV23 09/05/2019,11/2008 Tdap 11/08/2013 Surgical History Surgery Date Site/Laterality Comments TONSILLECTOMY HYSTERECTOMY CARPAL TUNNEL RELEASE CYSTOCELE REPAIR RECTOCELE REPAIR FACET BLOCK LUMBAR SACRAL 1 LEVEL LEFT 10/23/2021 Le ft Medical History Medical History Date Comments Pain in hip Hip pain - (Adde d by TW Conv) Personal history of other di seases of the respiratory system History of asthma - (Added b y TW Conv) Personal history of other di seases of the musculoskeletal system and connective tissue History of arthritis - (Adde d by TW Conv) Personal history of other di seases of the musculoskeletal system and connective tissue History of fibromyalgia - (A dded by TW Conv) Personal history of other di seases of urinary system History of cystocele - (Adde d by TW Conv) Rectocele Rectocele, femal e - (Added by TW Conv) Stomach ulcer Ear problems Asthma Gastric reflux Hypertension Disc disorder of lumbar region Lumbar stenosis Osteopenia Sinusitis Peptic ulceration Anxiety Cervical disc disease Cervical stenosis (uterine cervix) Osteoarthritis Hypercholesteremia Family History Medical History Relation Name Comments Cancer Brother Heart disease Brother Hypertension Brother Heart disease Father Family history of cardiac disorder - (Added by TW Conv) Hypertension Father Cancer Maternal Grandmother Heart disease Mother Heart failure Mother Family history of congestive heart failure - (Added by TW Conv) Hypertension Mother Stroke Mother Family history of cerebrovascular accident (CVA) - (Added by TW Conv) Hypertension Sister Relation Name Status Comments Brother Father Maternal Grandmother Mother Sister Social History Tobacco Use Types Packs/Day Years Used Date Smoking Tobacco: Never Smokeless Tobacco: Never Tobacco Cessation:Counseling Given: Not Answered Alcohol Use Standard Drinks/Week Comments Yes 0 (1 standard drink = 0.6 oz pur e alcohol) very rarely AUDIT-C Answer Date Recorded Q1: How often do you have a drink containing alc ohol? Never 01/23/2022 Average Number of Drinks Not on file 03/18/2 022 Q3: How often do you have si x or more drinks on one occasion? Never 01/23/2022 Comments No Sex and Gender Information Value Date Recorded Sex Assigned at Not on file Legal Sex Female 1:53 AM ACTIVITY SPECIALIST Gender Identity Female 08/20/2021 11:20 AM CDT Sexual Orientation Not on file Occupation Industry Job Start Date Job End Date retired Not on file Not on file Not on file Obstetrics History Last Filed Vital Signs Vital Sign Reading Time Taken Comments Blood Pressure 132/78 02/13/2025 1:22 PM CDT Pulse 78 02/13/2025 1:22 PM CDT Temperature 36.1 C (96.9 F) 01/14/2024 11:02 AM ACTIVITY SPECIALIST Respiratory Rate 18 11/11/2023 8:59 AM ACTIVITY SPECIALIST Oxygen Saturation 97% 02/13/2025 1:22 PM CDT Inhaled Oxygen Concentration - - Weight 86 kg (189 lb 9.6 oz) 02/13/2025 1:22 PM CDT Height 157.5 cm (5' 2.01 ) 02/13/2025 1:22 PM CD T Body Mass Index 34.67 02/13/2025 1:22 PM CDT Plan of Treatment Health Maintenance Due Date Last Done Comments Depression Screening 1950 Hepatitis C Screening 1948 Hepatitis B Screening 1966 Zoster Vaccine (1 of 2) 1998 Well Visit 65+ 2013 Osteoporosis Screening-Bone Density Scan 07/29/2018 07/29/2016 Fall Risk Assessment 10/23/2022 10/23/2021, 04/20/20 18 DTaP/Tdap/Td Vaccine (2 - Td or Tdap) 11/08/2023 11/08/2013 Covid-19 Vaccine (4 - 2023-2 5 season) 2024 08/08/2021, 01/08/2021, 12/11/2020 Pneumococcal vaccine 65+ Completed 019, 03/17/2016, 11/08/2008 Influenza Vaccine Completed 09/05/2024, , 07/21/2021, Additional history exists Breast Cancer Screening-Mammogram Discontinued 09/23/2024, 09/23/2024, 10/06/2022, Additional history exists Goals Goal Patient Goal Type Associated Problems Recent Progress Patient-Stated? Author CCM Chronic Pain Care Plan Chronic Care Management Etta Adams V. RN Note: Problem: Chronic Pain Goals: 1. Minimize further functional decline 2. Maximize quality of life 3. Control pain Strategies: - Activity/exercise program recommendation - Conservative stepwise pain medicine strategy with multi-disciplinary approach - Recommend healthy lifestyle strategies and compensatory methods as needed Procedures Procedure Name Priority Date/Time Associated Diagnosis Comments MRI INTERNAL AUDITORY CANAL INCL BRAIN W WO CONTRAST Schedule Routine, Read Routine (OP Routine) 01/31/2025 8:46 AM CDT Double vision Dizziness and giddiness from Last 3 Months Results * MRI Internal Auditory Canal incl Brain W WO Contrast (01/31/2025 8:46 AM CDT) Anatomical Region Laterality Modality Head and Neck N/A Magnetic Resonan ce 01/31/2025 12:4 9 PM CDT Narrative 01/31/2025 1:17 PM CDT EXAM DESCRIPTION: MRI INTERNAL AUDITORY CANAL INCL BRAIN W WO CONTRAST REASON FOR STUDY: asnhl Dizziness that started when patient was in her 30s, blurred vision that started within the last year, known eustachian tube disorder with hearing loss in left ear TECHNIQUE: Multiplanar imaging includes non-contrasted T1, T2, FLAIR, gradient echo/susceptibility-weighted images, diffusion with ADC map and post gadolinium contrast sequences. Additional thin slice images with and without gadolinium contrast acquired in the posterior fossa. Images stored on PACS. CONTRAST TYPE/DOSE: 17mL of GADOTERATE MEGLUMINE 0.5 MMOL/ML INTRAVENOUS SOLUTION (SO) injected via intravenous COMPARISON: IAC protocol MRI dated 09/30/2022. Temporal bone CT dated 04/28/2023. FINDINGS: There is no diffusion restriction to suggest acute/recent infarction. No parenchymal susceptibility signal to indicate blood degradation products. The size and configuration of the ventricles and sulci are similar when compared to the previous MRI dated 09/30/2022. The basilar cisterns are maintained. Right occipital medial margin small chronic infarction is again seen. There are few chronic lacunar infarctions in the bilateral cerebellar hemispheres. Elsewhere in the brain the subcortical and periventricular white matter T2/FLAIR hyperintense signal in the bilateral cerebral hemispheres is nonspecific but compatible with chronic microvascular ischemic type change in a patient of this age. Similar signal alteration is seen in the yoly. This IAC protocol MRI is not optimized for evaluation of the intracranial vasculature. Left paraclinoid region 4 mm rounded T2 hypointense signal (series 7, image 11) could be tortuous course of the internal carotid artery versus an aneurysm. Dedicated high-resolution sequences through the posterior fossa were obtained per protocol. Preservation of the expected T2 hyperintense signal through the inner ear structures on both sides. The bilateral cranial nerve 7 8 complex have a symmetric course and there is no enhancing mass in the right or left internal auditory canals. There is no enhancing mass in the right or left cerebellopontine angle cistern. There is T2 hyperintense signal in the bilateral mastoid air cells. Bilateral cataract eye surgeries. With a history of blurry vision the need for dedicated contrast-enhanced orbital protocol MRI as clinically indicated. Mild mucosal thickening in the bilateral ethmoid air cells. The right temporalis region multiple rounded T2 hyperintensities (series 7, image 13-10) are nonspecific and could reflect prominent vessels as seen on the previous MRI. IMPRESSION: 1. No enhancing mass in the right or left cerebellopontine angle cistern. 2. Bilateral mastoid T2 hyperintense fluid signal. 3. There is no acute infarction. 4. Chronic infarctions, chronic microvascular ischemic type white-matter changes and additional findings as above. 5. Left paraclinoid tortuous vessel versus an aneurysm. Recommend further evaluation with CT or MR angiogram. THIS IS AN ELECTRONICALLY VERIFIED FINAL REPORT 01/31/2025 1:17 PM - Electronically signed by Jae Christensen D.O. AP: RHODA Report ID: [id number] Reading Location: [place] [address] Procedure Note Jae Christensen, DO - 01/31/2025 EXAM DESCRIPTION: MRI INTERNAL AUDITORY CANAL INCL BRAIN W WO CONTRAST REASON FOR STUDY: asnhl Dizziness that started when patient was in her 30s, blurred vision that started within the last year, known eustachian tube disorder with hearingloss in left ear TECHNIQUE: Multiplanar imaging includes non-contrasted T1, T2, FLAIR,gradient echo/susceptibility-weighted images, diffusion with ADC map and post gadolinium contrast sequences. Additional thin slice images with andwithout gadolinium contrast acquired in the posterior fossa. Images stored onPACS. CONTRAST TYPE/DOSE: 17mL of GADOTERATE MEGLUMINE 0.5 MMOL/ML INTRAVENOUS SOLUTION (SO) injected via intravenous COMPARISON: IAC protocol MRI dated 09/30/2022. Temporal bone CT dated 04/28/2023. FINDINGS: There is no diffusion restriction to suggest acute/recent infarction. No parenchymal susceptibility signal to indicate blood degradationproducts. The size and configuration of the ventricles and sulci are similar when compared to the previous MRI dated 09/30/2022. The basilar cisterns are maintained. Right occipital medial margin small chronic infarction is again seen.There are few chronic lacunar infarctions in the bilateral cerebellarhemispheres. Elsewhere in the brain the subcortical and periventricular white matter T2/FLAIR hyperintense signal in the bilateral cerebral hemispheres is nonspecific but compatible with chronic microvascular ischemic type changein a patient of this age. Similar signal alteration is seen in the yoly. This IAC protocol MRI is not optimized for evaluation of the intracranial vasculature. Left paraclinoid region 4 mm rounded T2 hypointense signal (series 7, image 11) could be tortuous course of the internal carotidartery versus an aneurysm. Dedicated high-resolution sequences through the posterior fossa wereobtained per protocol. Preservation of the expected T2 hyperintense signal throughthe inner ear structures on both sides. The bilateral cranial nerve 7 8complex have a symmetric course and there is no enhancing mass in the right orleft internal auditory canals. There is no enhancing mass in the right or left cerebellopontine angle cistern. There is T2 hyperintense signal in the bilateral mastoid air cells. Bilateral cataract eye surgeries. With a history of blurry vision theneed for dedicated contrast-enhanced orbital protocol MRI as clinicallyindicated. Mild mucosal thickening in the bilateral ethmoid air cells. The right temporalis region multiple rounded T2 hyperintensities (series 7, [id number]) are nonspecific and could reflect prominent vessels as seen on theprevious MRI. IMPRESSION: 1. No enhancing mass in the right or left cerebellopontine anglecistern. 2. Bilateral mastoid T2 hyperintense fluid signal. 3. There is no acute infarction. 4. Chronic infarctions, chronic microvascular ischemic type white-matter changes and additional findings as above. 5. Left paraclinoid tortuous vessel versus an aneurysm. Recommendfurther evaluation with CT or MR angiogram. THIS IS AN ELECTRONICALLY VERIFIED FINAL REPORT 01/31/2025 1:17 PM - Electronically signed by Jae Christensen D.O. AP: RHODA Report ID: [id number] Reading Location: [place] [address] Estela Corona DO IMG MRI PROCEDURES Final Res ult from Last 3 Months Insurance MEDICARE [facility] MEDICARE [facility] MEDICARE SUPPLEMENT MEDICARE [facility] MEDICARE SUPPLEMENT Care Teams Language Interpreter Relationship Specialty Start Date End Date Jory Paz NP 2 [facility] [address] [address] PCP - General Nurse Practitioner 12/05/24 Bonnie Jolley MD Referring Physician Family Medicine 10/04/23
--- OUTSIDE RECORDS SUMMARY | 2025-02-16 15:25 | XMS_ITS | Encounter Summary ---
Author Organization [facility] Address [address] [facility] [place] [address] Phone Care Team Providers Care Sensor Operator Name Role Phone Jory Paz APRN, CNP Primary Care Provid er Encounter Details Date Type Department Care Team (Late st Contact Info) Description 12/15/2024 Results Follow-Up [facility] Medical Group - Family Medicine - [address] [place] [address] Jory Paz APRN, CNP [address] [id number] Social History Tobacco Use Types Packs/Day Years Used Date Smoking Tobacco: Never Smokeless Tobacco: Never Alcohol Use Standard Drinks/Week Comments Yes 0 (1 standard drink = 0.6 oz pur e alcohol) Socially only, rarely C Utilities Answer Date Recorded In the past 12 months has th [employer] electric, gas, oil, or water company threatened to shut off services in your home? No 01/03/2025 Social Connection and Isolat ion Panel [NHANES] Answer Date Recorded In a typical week, how many times do you talk on the phone with family, friends, or neighbors? Three times a week 01/03/2025 How often do you get togethe r with friends or relatives? Once a week 01/03/2025 How often do you attend chur ch or worship services? More than 4 times per year 01/03/2025 Do you belong to any clubs o r organizations such as religion groups, unions, fraternal or athletic groups, or school groups? Yes 01/03/2025 How often do you attend meet ings of the clubs or organizations you belong to? 1 to 4 times per year 01/03/2025 Are you , , di vorced, , never , or living with a partner? 01/03/2025 AUDIT-C Answer Date Recorded Q1: How often do you have a drink containing alc ohol? Monthly or less 01/03/2025 Q2: How many drinks containi ng alcohol do you have on a typical day when you are drinking? 1 or 2 01/03/2025 Q3: How often do you have si x or more drinks on one occasion? Never 01/03/2025 Overall Financial Resource Strain (CARDIA) Answe r Date Recorded How hard is it for you to pa y for the very basics like food, housing, medical care, and heating? Not hard at all 01/03/2025 PHQ-2 Answer Date Recorded Total Score - Questions 1-9 0 12/10 [facility] - Occupational Stress Questionnaire Answer Date Recorded Do you feel stress - tense, restless, nervous, or anxious, or unable to sleep at night because your mind is troubled all the time - these days? Only a little 01/03/2025 Exercise Vital Sign Answer Date Recorde d On average, how many days pe r week do you engage in moderate to strenuous exercise (like a brisk walk)? Patient declined On average, how many minutes do you engage in exercise at this level? Patient declined 01/03/2025 Hunger Vital Sign Answer Date Recorded Within the past 12 months, y ou worried that your food would run out before you got the money to buy more. Never true 01/03/20 25 Within the past 12 months, t he food you bought just didn't last and you didn't have money to get more. Never true 01/03/2025 PRAPARE - Transportation Answer Date Re corded In the past 12 months, has l ack of transportation kept you from medical appointments or from getting medications? No 12/10 In the past 12 months, has l ack of transportation kept you from meetings, work, or from getting things needed for daily living? No 01/03/2025 Housing Stability Vital Sign Answer Josemanuel e Recorded In the last 12 months, was t here a time when you were not able to pay the mortgage or rent on time? No 11/09/2023 In the last 12 months, how many places have you lived? 1 11/09/2023 In the last 12 months, was t here a time when you did not have a steady place to sleep or slept in a senior living (including now)? No 11/09/2023 Housing Stability Vital Sign Answer Josemanuel e Recorded In the last 12 months, was t here a time when you were not able to pay the mortgage or rent on time? No 01/03/2025 In the past 12 months, how m any times have you moved where you were living? 0 01/03/2025 At any time in the past 12 m [facility], were you homeless or living in a senior living (including now)? No 01/03/2025 Education Answer Date Recorded What is the highest level of school you have completed or the highest degree you have received? 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 Answer Date of Assessment Author Monthly or less 01/03/2025 2:56 PM BEZEL CUTTER [employer] Background * Q2: How many drinks containing alcohol do you have on a typical day when you are drinking? Answer Date of Assessment Author 1 or 2 01/03/2025 2:56 PM BEZEL CUTTER [employer] Background * Q3: How often do you have six or more drinks on one occasion? Answer Date of Assessment Author Never 01/03/2025 2:56 PM BEZEL CUTTER Yolanda Cardoso Background * Question Answer Date of Assessment Author Little interest or pleasure in doing things Not at all 01/05/2025 1:03 PM Patricia Chavez MA Feeling down, depressed, or hopeless Not at all 01/05/2025 1:03 PM Patricia Chavez MA * Over the past 2 weeks, how often have you been bothered by any of the following problems? Question Answer Date of Assessment Author Patient Health Questionnaire -2 Score 0 01/05/2025 1:03 PM Patricia Chavez MA documented as of this encounter Plan of Treatment Upcoming Encounters Date Type Department Care Team (Late st Contact Info) Description 07/05/2025 1:30 PM CDT Office Visit [facility] Medical Group - Family Medicine [facility] [address] [place] [address] Jory Paz APRN, ER PHYSICIAN [address] [address] documented as of this encounter Visit Diagnoses Not on filedocumented in this encounter Additional Health Concerns Assessment Noted Time PHQ-9 Depression Total Score: 0 07/04/20 2:22 PM CDT documented as of this encounter Care Teams Sensor Operator Relationship Specialty Start Date End Date Jory Paz APRN, SHIRA [address] [address] PCP - General Advanced Practice Nurse 07/04/24 documented as of this encounter
--- OUTSIDE RECORDS SUMMARY | 2025-02-16 15:25 | XMS_ITS | Clinical Summary ---
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
--- OUTSIDE RECORDS SUMMARY | 2025-02-16 15:25 | XMS_ITS | Clinical Summary ---
Author Organization [facility] Address [address] [facility], [place] [address] Phone Care Team Providers Care Appliance Mechanic Name Role Phone Jory Paz APRN, CNP Primary Care Provid er Allergies Active Allergy Reactions Criticality Noted Date Comments Moxifloxacin Hcl In Nacl Nausea 03/26/2017 Ciprofloxacin Other (see Comments) Medium 07/19/2018 got tendenitis in ankle per patient Erythromycin Nausea,Vomiting Levofloxacin In D5w Nausea 03/26/2017 Developed tendonitis Macrolides And Ketolides Nausea High 08/08/2018 Morphine Nausea,Vomiting Medications acetaminophen (TYLENOL) 500 MG Tablet Take 500 mg by mouth every 4 hours as needed for Pain. Active Digestive Enzymes (PAPAYA AND ENZYMES PO) Take by mouth Daily as needed. Active Calcium Carbonate (CALCIUM 600 PO) Take 600 mg by mouth daily. Active vitamin D (CHOLECALCIFEROL) 1000 UNIT Tablet Take 1,000 Units by mouth daily. Active olopatadine (PATADAY) 0.2 % Solution Place 1 Drop in affected eye(s) daily. Active Probiotic Product (PROBIOTIC-10 PO) Take by mouth. Active fluticasone (FLONASE) 50 MCG/ACT Suspension 1-2 Sprays by Nasal route daily. Use in each nostril as directed. 1 g 1 2 Active Ascorbic Acid (Vitamin C) 1000 MG Tablet Take by mouth. Activ e estradiol (ESTRACE) 0.1 MG/GM Cream 1 g by Vaginal route twice a week. 4 Active albuterol 108 (90 Base) MCG/ACT Aerosol SolutionIndicatio ns:Mild persistent asthma without complication take 2 Puffs by inhalation every 4 hours as needed for Wheezing or Cough. 8.5 g 1 4 Active famotidine (PEPCID) 40 MG Tablet 4 Active hydroCHLOROthiazi de 25 MG TabletIndications :Edema, unspecified type TAKE 1 TABLET BY MOUTH DAILY 90 Tablet 2 4 Active dicyclomine (BENTYL) 10 MG CapsuleIndication s:Generalized abdominal pain TAKE 1 CAPSULE BY MOUTH THREE TIMES DAILY NEEDED FOR ABDOMINAL CRAMPS 90 Capsule 2 4 Active DULoxetine (CYMBALTA) [address] ParticlesIndicati ons:Generalized anxiety disorder,Fibromya lgia TAKE 1 CAPSULE BY MOUTH DAILY 90 Capsule 1 4 Active rosuvastatin (CRESTOR) 10 MG Tablet Take 1 Tablet by mouth daily. 90 Tablet 2 4 Active ondansetron (ZOFRAN-ODT) 4 MG TABLET DISPERSIBLE Take 1 Tablet by mouth every 8 hours as needed for Nausea - 1st line or Nausea - 2nd line. 20 Tablet 4 Active polyethyl glycol-propyl glycol (Systane) 0.4-0.3 % Solution Place in affected eye(s). Active losartan (COZAAR) 100 MG Tablet TAKE 1 TABLET BY MOUTH DAILY 90 Tablet 1 5 Active amitriptyline (ELAVIL) 25 MG Tablet TAKE 1 TABLET BY MOUTH EVERY NIGHT 90 Tablet 1 5 Active pantoprazole (PROTONIX) 20 MG Tablet Delayed Response Take 20 mg by mouth daily. 4 10/18/20 25 Active Active Problems Problem Noted Date Diagnosed Date PSVT (paroxysmal supraventricular tachycardia) 0 02/25/2023 Vertigo of central origin, unspecified lateralit y 09/16/2022 Myringitis 08/26/2022 Overview (09/09/2023): Last Assessment & Plan: Avoid ear cleaning techniques Avoid water to [...] placement, will plan for CT temporal bone Sensorineural hearing loss (SNHL) of both ears 0 06/17/2022 Overview (09/09/2023): Last Assessment & Plan: Hearing and Balance Testing 64 ounces of caffeine free and soda free fluid daily [facility] Will obtain previous work up from [facility] [place] Hypersensitivity Vasculitis 01/23/2022 Gastroparesis 01/23/2022 Spondylolisthesis of lumbar region 08/22/2021 Family history of cardiovascular disease 021 Osteoporosis 04/14/2021 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 Polyp of colon 02/07/2021 Osteoarthritis of cervical spine 03/15/2019 Constipation 03/30/2018 Benign breast lumps 03/30/2018 Sciatica 03/30/2018 Spinal curvature 03/30/2018 Wears glasses 03/30/2018 Hernia, hiatal 03/30/2018 Anxiety disorder 03/22/2018 Fibromyalgia 03/22/2018 Hypomagnesemia 03/22/2018 Low bone mass 03/22/2018 Arthritis 03/22/2018 Urge incontinence of urine 07/03/2016 Overview (09/09/2023): Note: Unchanged Essential hypertension 11/02/2015 Hyperlipemia 11/02/2015 Fibrocystic disease of breast 04/10/2014 Overview (09/09/2023): Note: Unchanged Status post total abdominal hysterectomy 014 Overview (09/09/2023): Note: Unchanged - DR. LAM in 1982 due to fibroids Gastroparesis GERD (gastroesophageal reflux disease) Esophageal disorder Mild persistent asthma Resolved Problems Problem Noted Date Diagnosed Date Resolved Date Chest pain, unspecified 04/14/2021 11/0 12/2022 Encounters Date Type Department Care Team Description 01/12/2025 2:20 PM RAILROAD WHEELS AND AXLES INSPECTOR Clinical Support [facility] [address] [place] [address] [facility] Raul, Primary Nurse Clinic Blood pressure check (Primary Dx) Discharge Disposition: Discharged to home or Selfcare 01/11/2025 Travel 01/05/2025 1:00 PM RAILROAD WHEELS AND AXLES INSPECTOR [place] [facility] [address] [place] [address] Jory Paz APRN, SHIRA Essential hypertension (Primary Dx); Paroxysmal junctional tachycardia (HCC); Left leg pain; Neck pain Discharge Disposition: Discharged to home or Selfcare 01/03/2025 Travel 12/15/2024 Results [place] [facility] [address] [place] [address] Jory Paz APRN, CNP 12/15/2024 Travel 11/24/2024 Refill [facility] [address] [place] [address] Max Cervantes MD Medication Refill 11/20/2024 3:00 PM RAILROAD WHEELS AND AXLES INSPECTOR Urgent Care Visit [facility] [address] [place] [address] Erin Pedro APRN, CNP Dizziness (Primary Dx) Discharge Disposition: Discharged to home or Selfcare 11/20/2024 [place]ill [facility] [address] [place] [address] Jory Paz APRN, CNP Medication Refill 11/20/2024 Travel 11/20/2024 Nurse Triage [facility] [address] [place] [phone] Jory Paz, RESIDENT SURGEON, [employer] APPLIANCE TECH Appointment; Dizziness from Last 3 Months Immunizations Immunization Administration Dates Next Due Covid-19, Mrna, Lnp-s, Pf, 3 0 Mcg/0.3 Ml Dose (Likeastore) 01/08/2021,12/11/2020 Influenza Vaccine 07/23/2023 Influenza Vaccine greater than 3 yrs ,07/19/2018,08/10/2017,07/20,08/08/2015 Influenza Vaccine, Quadrivalent, PF 08/02/2019,0 07/19/2018 Influenza, High-dose, Quadrivalent 09/16/2022,,08/04/2020 Influenza, Seasonal, Injecta ble, Undefined 08/10/2017,08/08/2015 Influenza, high-dose, trivalent, PF 08/09,08/04/2020,08/09/2017,07/20,08/23/2015 PUR PCV-13 03/17/2016 Pneumococcal Vaccine - 13 Valent 03/17/2016 Pneumococcal Vaccine Adult - 23 Valent 9,11/08/2008 Pneumococcal conjugate PCV20 , polysaccharide [id number] conjugate, adjuvant, PF 09/16/2022 TDAP Vaccine 11/08/2013 Family History Medical History Relation Name Comments Heart Attack Brother Edin Lung Cancer Brother Edin Lupus Daughter Heart Attack Father Elwyn Ovarian Cancer Maternal Aunt 1 Leukemia/Lymphoma Maternal Aunt 2 Cancer Maternal Grandmother Debby colon Colon Cancer Maternal Grandmother Debby Congestive Heart Failure Mother Debby Heart Attack Mother Debby Hypertension Mother Debby Stroke Mother Debby Hypertension Sister Debby Relation Name Status Comments Brother Edin Daughter Father Elwyn Maternal Aunt 1 Maternal Aunt 2 Maternal Grandmother Debby Mother Debby Sister Debby Social History Tobacco Use Types Packs/Day Years Used Date Smoking Tobacco: Never Smokeless Tobacco: Never Alcohol Use Standard Drinks/Week Comments Yes 0 (1 standard drink = 0.6 oz pur e alcohol) Socially only, rarely [facility] Utilities Answer Date Recorded In the past 12 months has [employer], gas, oil, or water company threatened to [...] often do you attend chur ch or methodist services? More than 4 times per year 01/03/2025 Do you belong to any clubs o r organizations such as samaritan groups, unions, fraternal or athletic groups, or [...] Total Score - Questions 1-9 0 12/10 [facility] - Occupational Stress Questionnaire Answer Date Recorded [...] place to sleep or slept in a fci (including now)? No 11/09/2023 Housing Stability Vital Sign Answer Josemanuel e Recorded In the last 12 months, was t here a time when you were not able to pay the mortgage or rent on time? No 01/03/2025 In the past 12 months, how m any times have you moved where you were living? 0 01/03/2025 At any time in the past 12 m [facility], were you homeless or living in a fci (including now)? No 01/03/2025 Education Answer Date [...] CDT Gender Identity Female 09/27/2023 8:13 PM RAILROAD WHEELS AND AXLES INSPECTOR Sexual Orientation Straight 09/27/2023 8: 13 PM RAILROAD WHEELS AND AXLES INSPECTOR 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 Not on file Not on file Not on file Last Filed Vital Signs Vital Sign Reading Time Taken Comments Blood Pressure 124/62 01/12/2025 2:16 PM RAILROAD WHEELS AND AXLES INSPECTOR Pulse 78 01/12/2025 2:16 PM RAILROAD WHEELS AND AXLES INSPECTOR Temperature 36.5 C (97.7 F) 01/05/2025 12:53 PM RAILROAD WHEELS AND AXLES INSPECTOR Respiratory Rate 16 01/05/2025 12:53 PM RAILROAD WHEELS AND AXLES INSPECTOR Oxygen Saturation 96% 01/12/2025 2:16 PM RAILROAD WHEELS AND AXLES INSPECTOR Inhaled Oxygen Concentration - - Weight 88 kg (194 lb) 01/05/2025 12:53 PM RAILROAD WHEELS AND AXLES INSPECTOR Height 154.9 cm (5' 1 ) 01/05/2025 12:53 PM RAILROAD WHEELS AND AXLES INSPECTOR Body Mass Index 36.66 01/05/2025 12:53 PM RAILROAD WHEELS AND AXLES INSPECTOR Plan of Treatment Upcoming Encounters Date Type Department Care Team (Late st Contact Info) Description 07/05/2025 1:30 PM CDT Office Visit [facility] [place] [address] [place] [phone] Jory Paz APRN, [employer] APPLIANCE TECH [address] [phone] Health Maintenance Due Date Last Done Comments Hepatitis C Virus (HCV) Screening 1950 Zoster Immunization (1 of 2) 1998 Respiratory Syncytial Virus (RSV) Immunization (Adult) (1 - 1-dose 75+ series) 2023 Td Immunization Every 10 Years (Adults With 1 Tdap) 11/08/2023 11/08/2013 DEXA Bone Density 09/05/2026 09/05/2024, , 07/29/2016 Colonoscopy High Risk Discontinued 11/29/2018, 014 Colonoscopy Discontinued 11/29/2018, 05/07/2014 Colorectal Cancer Screening Discontinued SARS-COV-2 Immunization Discontinued 08/08/20, 01/08/2021, 12/11/2020 Pneumococcal Immunization (50+ years) Completed 09/16/2022, 09/05/2019, 03/17/2016, Additional history exists Pneumococcal Immunization Combined Discontinued 09/16/2022, 09/05/2019, 03/17/2016, Additional history exists Influenza Immunization Completed , 07/23/2023, 07/23/2023, Additional history exists Mammogram Discontinued 09/23/2024, 09/09, 08/26/2020, Additional history exists Cologuard Discontinued Hepatitis B Immunization Aged Out No longer eligible based on patient's age to complete this topic Immunochemical Fecal Occult Blood Discontinued Meningococcal Immunization (ACWY) Aged Out No longer eligible based on patient's age to complete this topic Rotavirus Immunization Aged Out No lo nger eligible based on patient's age to complete this topic Procedures Procedure Name Priority Date/Time Associated Diagnosis Comments CBC WITH AUTO DIFFERENTIAL Routine 12/15/2024 8:55 AM RAILROAD WHEELS AND AXLES INSPECTOR Essential hypertension TRIIODOTHYRININE (T3) FREE Today 12/15/2024 8:55 AM RAILROAD WHEELS AND AXLES INSPECTOR Essential hypertension Hyperlipidemia, unspecified hyperlipidemia type Dizziness and giddiness Peptic ulcer without hemorrhage or perforation but with obstruction (HCC) Shortness of breath Gastroesophageal reflux disease with esophagitis, unspecified whether hemorrhage Pure hypercholesterolemia Senile arthritis Asthmatic bronchitis without complication, unspecified asthma severity, unspecified whether persistent Palpitations Paroxysmal supraventricular tachycardia (HCC) Senile osteoporosis THYROXINE (T4) FREE Today 12/15/2024 8 :55 AM RAILROAD WHEELS AND AXLES INSPECTOR Essential hypertension Hyperlipidemia, unspecified hyperlipidemia type Dizziness and giddiness Peptic ulcer without hemorrhage or perforation but with obstruction (HCC) Shortness of breath Gastroesophageal reflux disease with esophagitis, unspecified whether hemorrhage Pure hypercholesterolemia Senile arthritis Asthmatic bronchitis without complication, unspecified asthma severity, unspecified whether persistent Palpitations Paroxysmal supraventricular tachycardia (HCC) Senile osteoporosis VITAMIN D, 25 HYDROXY TOTAL Routine 12/15/2024 8:55 AM RAILROAD WHEELS AND AXLES INSPECTOR Essential hypertension Osteoporosis without current pathological fracture, unspecified osteoporosis type THYROID STIMULATING HORMONE (TSH) Routine 12/15/2024 8:55 AM RAILROAD WHEELS AND AXLES INSPECTOR Essential hypertension COMPLETE BLOOD COUNT (CBC) WITH DIFF Routine 12/15/2024 8:55 AM RAILROAD WHEELS AND AXLES INSPECTOR Essential hypertension LIPID PANEL Routine 12/15/2024 8:55 AM RAILROAD WHEELS AND AXLES INSPECTOR Essential hypertension Hyperlipidemia, unspecified hyperlipidemia type CMP (COMPREHENSIVE METABOLIC PANEL) Routine 12/15/2024 8:55 AM RAILROAD WHEELS AND AXLES INSPECTOR Essential hypertension CARDIOLOGY CONSULT 12/13/2024 12:00 AM RAILROAD WHEELS AND AXLES INSPECTOR LORI SCREENING BILATERAL DIGITAL W CAD W KUMAR Routine 09/23/2024 11:20 AM RAILROAD WHEELS AND AXLES INSPECTOR Encounter for screening mammogram for malignant neoplasm of breast BONE DENSITY GENERIC 09/05/2024 12:00 AM CDT HM COLONOSCOPY Routine 05/07/2014 from Last 3 Months or Most Recently Relevant to Health Maintenance Results * VITAMIN D, 25 HYDROXY TOTAL (12/15/2024 8:55 AM RAILROAD WHEELS AND AXLES INSPECTOR) VITAMIN D, 25 HYDROX 42.6 ng/mL 12/15/2024 10:49 AM RAILROAD WHEELS AND AXLES INSPECTOR [facility] Blood Venipuncture / Unknown 12/15/2024 8:55 AM RAILROAD WHEELS AND AXLES INSPECTOR 12/15/2024 10:01 AM RAILROAD WHEELS AND AXLES INSPECTOR Narrative [facility] - 12/15/2024 10:49 AM RAILROAD WHEELS AND AXLES INSPECTOR Published reference ranges for Vitamin D vary depending on time and place and method of testing, and on patient's age, sex, ethnicity and levels of other measured analytes such as parathormone, calcium and phosphorus. The result should be evaluated in conjunction with clinical findings and suspicions. [place] [facility] [employer] and [facility] Clinical Practice Guidelines: Status Vitamin D levels (ng/mL) Deficient <=20 At risk of inadequacy 21-29 Sufficient 30-100 Centers of Disease Control and Prevention Guidelines: Status Vitamin D levels (ng/mL) Deficient <13 At risk of inadequacy 13-19 Sufficient 20-50 Possibly harmful >50 References: [place] [employer], 2010 Dietary reference intakes for calcium and vitamin D. [place]: The National Academies Press. Hugo M, Kirstin N, Felipe AG, et al., Evaluation, treatment, and prevention of Vitamin D deficiency: an Endocrinology Clinical Practice Guideline. JCEM 2011 96: 7 0743-2202. Betty A, Myke C, Joe D, et al., Vitamin D Status: [place], 7683-7769, MIHS data brief, no. 59, MD [place]: National Center for Health Statistics. 2010. us Jory Paz RESIDENT SURGEON, [employer] APPLIANCE TECH CHEMISTRY ORDERABLES Final Result [facility] [address] [place] [address] * (ABNORMAL) CBC WITH AUTO DIFFERENTIAL (12/15/2024 8:[address] [facility]) [facility] WBC 8.55 4.00 - 12.00 10(3)/mcL 12/15/2024 10:06 AM [facility] RBC 4.09 3.80 - 5.30 10(6)/[facility] 12/15/2024 10:06 AM [facility] HEMOGLOBIN (HGB) 13.1 12.0 - 15.8 g/dL 12/15/2024 10:06 AM [facility] HEMATOCRIT (HCT) 40.7 36.0 - 47.0 % 12/15/2024 10:06 AM [facility] MCV 99.5(H) 82.0 - 96.0 fL 12/15/2024 10:06 AM [facility] MCH 32.0 26.0 - 34.0 pg 12/15/2024 10:06 AM [facility] MCHC 32.2 31.0 - 36.0 g/dL 12/15/2024 10:06 AM [facility] PLATELET COUNT 179 140 - 440 10(3)/[facility] 12/15/2024 10:06 AM [facility] RDW 13.6 11.8 - 15.5 % 12/15/2024 10:06 AM [facility] MPV 11.8 9.7 - 12.4 fL 12/15/2024 10:06 AM [facility] NEUTROPHILS 59.4 47.0 - 73.0 % 12/15/2024 10:06 AM [facility] LYMPHOCYTES 30.8 18.0 - 42.0 % 12/15/2024 10:06 AM [facility] MONOCYTES 7.7 4.0 - 12.0 % 12/15/2024 10:06 AM [facility] EOSINOPHILS 1.5 0.0 - 5.0 % 12/15/2024 10:06 AM [facility] BASOPHILS 0.6 0.0 - 1.0 % 12/15/2024 10:06 AM RAILROAD WHEELS AND AXLES INSPECTOR [facility] ABSOLUTE NEUTROPHILS 5.08 1.60 - 7.70 10(3)/[facility] 12/15/2024 10:06 AM [facility] ABSOLUTE LYMPHOCYTES 2.63 1.30 - 3.20 10(3)/[facility] 12/15/2024 10:06 AM RAILROAD WHEELS AND AXLES INSPECTOR [facility] ABSOLUTE MONOCYTES 0.66 0.20 - 1.00 10(3)/[facility] 12/15/2024 10:06 AM RAILROAD WHEELS AND AXLES INSPECTOR [facility] ABSOLUTE EOSINOPHIL 0.13 0.00 - 0.40 10(3)/[facility] 12/15/2024 10:06 AM [facility] ABSOLUTE BASOPHILS 0.05 0.00 - 0.10 10(3)/[facility] 12/15/2024 10:06 AM [facility] NRBC PER 100 WBC 0 12/15/19 25 10:06 AM RAILROAD WHEELS AND AXLES INSPECTOR [facility] Blood Venipuncture / Unknown 12/15/2024 8:55 AM RAILROAD WHEELS AND AXLES INSPECTOR 12/15/2024 10:02 AM RAILROAD WHEELS AND AXLES INSPECTOR us Jory Paz APRN, CNP HEMATOLOGY ORDERABLE S Final Result Performing Organization Address City/[facility]/ZIP Co de Phone Number [facility] [address] [place] [address] * THYROXINE (T4) FREE (12/15/2024 8:55 AM RAILROAD WHEELS AND AXLES INSPECTOR) Pathologist [facility] T4 FREE 0.8 0.7 - 1.9 ng/dL 12/15/2024 10:54 AM RAILROAD WHEELS AND AXLES INSPECTOR [facility] Blood Venipuncture / Unknown 12/15/2024 8:55 AM RAILROAD WHEELS AND AXLES INSPECTOR 12/15/2024 10:01 AM RAILROAD WHEELS AND AXLES INSPECTOR us Caryl Arevalo CHEMISTRY ORDERABLES Final Resul t [facility] [address] [place] [address] * THYROID STIMULATING HORMONE (TSH) (12/15/2024 8:55 AM RAILROAD WHEELS AND AXLES INSPECTOR) TSH 1.832 0.300 - 5.000 mIU/L 12/15/2024 10:54 AM RAILROAD WHEELS AND AXLES INSPECTOR [facility] Blood Venipuncture / Unknown 12/15/2024 8:55 AM RAILROAD WHEELS AND AXLES INSPECTOR 12/15/2024 10:01 AM RAILROAD WHEELS AND AXLES INSPECTOR Jory Paz APRN, CNP CHEMISTRY ORDERABLES Final Result Performing Organization Address City/[facility]/ZIP Co de Phone Number [facility] [address] [place] [address] * TRIIODOTHYRININE (T3) FREE (12/15/2024 8:55 AM RAILROAD WHEELS AND AXLES INSPECTOR) Pathologist [facility] FREE T3 2.7 1.6 - 3.9 pg/mL 12/15/2024 10:29 PM RAILROAD WHEELS AND AXLES INSPECTOR [facility] Blood Venipuncture / Unknown 12/15/2024 8:55 AM RAILROAD WHEELS AND AXLES INSPECTOR 12/15/2024 10:01 AM RAILROAD WHEELS AND AXLES INSPECTOR Caryl Arevalo CHEMISTRY ORDERABLES Final Resul t [facility] [address] [place] [address], [place] * LIPID PANEL (12/15/2024 8:55 AM RAILROAD WHEELS AND AXLES INSPECTOR) CHOLESTEROL 163 <200 mg/dL 12/15/2024 10:36 AM RAILROAD WHEELS AND AXLES INSPECTOR [facility] TRIGLYCERIDES 109 <150 mg/dL 12/15/2024 10:36 AM RAILROAD WHEELS AND AXLES INSPECTOR [facility] HDL CHOLESTEROL 56 >40 mg/dL 10:36 AM RAILROAD WHEELS AND AXLES INSPECTOR [facility] LDL 85 <130 mg/dL 12/15/2024 10:36 AM RAILROAD WHEELS AND AXLES INSPECTOR [facility] VLDL 22 10 - 50 mg/dL 12/15/2024 10:36 AM [facility] CHOL/HDL RATIO 2.9 0.0 - 4.4 12/15/2024 10:36 AM [facility] NON-HDL CHOLESTEROL 107 <130 mg/dL 12/15/2024 10:36 AM [facility] IS THE PATIENT REQUIRED TO BE FASTING? Yes 12/15/2024 10:36 AM [facility] HAS THE PATIENT BEEN FASTING? Yes 12/15/2024 10:36 AM [facility] Blood Venipuncture / Unknown 12/15/2024 8:55 AM RAILROAD WHEELS AND AXLES INSPECTOR 12/15/2024 10:01 AM RAILROAD WHEELS AND AXLES INSPECTOR us Jory Paz RESIDENT SURGEON, [employer] APPLIANCE TECH CHEMISTRY ORDERABLES Final Result [facility] [address] [place] [address] * (ABNORMAL) CMP (COMPREHENSIVE METABOLIC PANEL) (12/15/2024 8:55 AM RAILROAD WHEELS AND AXLES INSPECTOR) SODIUM 141 136 - 145 mmol/L 12/15/2024 10:36 AM [facility] POTASSIUM 4.0 3.5 - 5.1 mmol/L 12/15/2024 10:36 AM [facility] CHLORIDE 107 98 - 107 mmol/L 12/15/2024 10:36 AM [facility] CO2, VENOUS 26 22 - 30 mmol/L 12/15/2024 10:36 AM [facility] ANION GAP 12.0 <18.0 mmol/L 12/15/2024 10:36 AM [facility] GLUCOSE 84 70 - 99 mg/dL 12/15/2024 10:36 AM [facility] BUN 18 10 - 20 mg/dL 12/15/2024 10:36 AM [facility] CREATININE, BLOOD 0.84 0.60 - 1.00 mg/dL 12/15/2024 10:36 AM [facility] BUN/CREATININE RATIO 21(H) 12 - 20 ratio 12/15/2024 10:36 AM [facility] TOTAL PROTEIN 7.5 6.0 - 8.0 g/dL 12/15/2024 10:36 AM [facility] ALBUMIN 4.2 3.5 - 5.0 g/dL 12/15/2024 10:36 AM [facility] A/G RATIO 1.3 1.0 - 2.2 12/15/2024 10:36 AM [facility] CALCIUM 9.2 8.7 - 10.5 mg/dL 12/15/2024 10:36 AM [facility] T BILI 0.6 0.2 - 1.2 mg/dL 12/15/2024 10:36 AM [facility] SGOT (AST) 23 6 - 42 U/L 12/15/2024 10:36 AM [facility] SGPT (ALT) 18 6 - 55 U/L 12/15/2024 10:36 AM [facility] ALKALINE PHOSPHATASE 65 40 - 150 U/L 12/15/2024 10:36 AM [facility] IS THE PATIENT REQUIRED TO BE FASTING? No 12/15/2024 10:36 AM [facility] GFR, ESTIMATED >60 >=60 12/15/2024 10:36 AM [facility] Comment: Creatinine Clearance is the preferred criteria for selecting drug dose adjustments in renally impaired patients. The GFR is provided as additional pertinent clinical information. GFR is reported in mL/min/1.73 sq m. Calculation based on the Chronic Kidney Disease Epidemiology Collaboration (CKD- EPI) equation refit without adjustment for race. GFR, EST. >60 >=60 025 10:36 AM [facility] GFR, EST. NONAFRICAN >60 >=60 12/15/2024 10:36 AM [facility] Blood Venipuncture / Unknown 12/15/2024 8:55 AM RAILROAD WHEELS AND AXLES INSPECTOR 12/15/2024 10:01 AM RAILROAD WHEELS AND AXLES INSPECTOR us Jory Paz APRN, CNP CHEMISTRY ORDERABLES Final Result [facility] [address] [place] [address] * CARDIOLOGY CONSULT (12/13/2024 12:00 AM RAILROAD WHEELS AND AXLES INSPECTOR) 12/13/2024 us Provider Scan GENERIC SCAN ORDERS CONSULT Imani l Result Performing Organization Address City/[facility]/ZIP Co de Phone Number SCAN * LORI SCREENING BILATERAL DIGITAL W CAD W KUMAR (09/23/2024 11:20 AM RAILROAD WHEELS AND AXLES INSPECTOR) Anatomical Region Laterality Modality breast Bilateral Mammography 09/23/2024 12:1 9 PM RAILROAD WHEELS AND AXLES INSPECTOR Narrative 09/25/2024 4:27 PM RAILROAD WHEELS AND AXLES INSPECTOR - LORI SCREENING BILATERAL DIGITAL W CAD W KUMAR BILATERAL DIGITAL SCREENING MAMMOGRAM 3D/2D WITH CAD WITH MEDIOLATERAL OBLIQUE CRANIOCAUDAL: 09/23/2024 The study was acquired using digital technology and interpreted from soft copy. Current study was also evaluated with ICAD version 7.2. 2D digital mammographic views, as well as 3D digital tomosynthesis were performed in the CC and MLO projections. CLINICAL: Routine screening. Patient has no complaints. No personal history of cancer. Maternal aunt had breast cancer. Patient states a 10 pound weight decrease last year. COMPARISONS: Comparison is made to exams dated: 10/06/2022, 08/26/2020, and 08/24/2018 [facility]. BREAST TISSUE:There are scattered areas of fibroglandular density. FINDINGS: There are stable benign appearing masses in the right breast. No significant masses, calcifications, or other findings are seen in either breast. There has been no significant interval change. IMPRESSION: BENIGN There is no mammographic evidence of malignancy. A 1 year screening mammogram is recommended. A letter will be sent to the patient with these results. The patient will be entered into a reminder system with a target due date of 1 year for her next screening exam. Electronically signed by: Nohemi thorne/penrad:09/25/2024 14:48:00 Roller Stainer(s): RT Arslan(R)(M), [facility] letter sent: Normal Exam Reading location: [place] Mammogram BI-RADS: Category 2: Benign Procedure Note Nohemi Lemon MD - 09/25/2024 - LORI SCREENING BILATERAL DIGITAL W CAD W KUMAR BILATERAL DIGITAL SCREENING MAMMOGRAM 3D/2D WITH CAD WITH MEDIOLATERAL OBLIQUE CRANIOCAUDAL: 09/23/2024 The study was acquired using digital technology and interpreted from soft copy. Current study was also evaluated with WaitsupD version 7.2. 2D digital mammographic views, as well as 3D digital tomosynthesis were performed in the CC and MLO projections. CLINICAL: Routine screening. Patient has no complaints. No personal history of cancer. Maternal aunt had breast cancer. Patient states a 10 pound weight decrease last year. COMPARISONS: Comparison is made to exams dated: 10/06/2022, 08/26/2020, and 08/24/2018 [facility]. BREAST TISSUE:There are scattered areas of fibroglandular density. FINDINGS: There are stable benign appearing masses in the right breast. No significant masses, calcifications, or other findings are seen in either breast. There has been no significant interval change. IMPRESSION: BENIGN There is no mammographic evidence of malignancy. A 1 year screening mammogram is recommended. A letter will be sent to the patient with these results. The patient will be entered into a reminder system with a target due date of 1 year for her next screening exam. Electronically signed by: Nohemi thorne/penrad:09/25/2024 14:48:00 Roller Stainer(s): RT Arslan(R)(M), [facility] letter sent: Normal Exam Reading location: [place] Mammogram BI-RADS: Category 2: Benign Raghu Sanchez MD IMG MAMMO ORDERABLES Final Res ult * BONE DENSITY GENERIC SCAN (09/05/2024 12:00 AM CDT) 09/05/2024 us Provider Scan IMG DEXA ORDERABLES Final Result SCAN * HM COLONOSCOPY (05/07/2014) Daron Mejia Jr., MD PROCEDURE/MINOR PINO GICAL ORDERABLES Final Result from Last 3 Months or Most Recently Relevant to Health Maintenance Insurance MEDICARE [facility] Care Teams Appliance Mechanic Relationship Specialty Start Date End Date Jory Paz APRN, SHIRA [address] [phone] PCP - General Advanced Practice Nurse 07/04/24
--- OUTSIDE RECORDS SUMMARY | 2025-02-16 15:25 | XMS_ITS | Encounter Summary ---
Author Organization [facility] Address [address] [place] [address] Phone Care Team Providers Care Cellophaner Name Role Phone Max Cervantes MD Primary Care Provider [phone] Jory Paz APRN, CNP Primary Care Provid er Reason for Visit * Reason Comments Medication Refill Encounter Details Date Type Department Care Team (Late st Contact Info) Description 05/24/2023 Refill [facility] #2 [place] [address] Bonnie Jolley MD [address]2 [place] [address] Medication Refill Social History Tobacco Use Types Packs/Day Years Used Date Smoking Tobacco: Never Smokeless Tobacco: Never Alcohol Use Standard Drinks/Week Comments Yes 0 (1 standard drink = 0.6 oz pur e alcohol) rarely PHQ-2 Answer Date Recorded Total Score - Questions 1-9 0 08/08 Education Answer Date Recorded What is the highest level of school you have completed or the highest degree you have received? 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 Requested Prescriptions Pending Prescriptions Disp Refills pantoprazole (PROTONIX) 40 MG Tablet Delayed Response [Pharmacy Med Name: PANTOPRAZOLE 40MG TABLETS] 90 Tablet 1 Sig: TAKE 1 TABLET BY MOUTH DAILY Proton Pump Inhibitors Protocol Passed - 05/24/2023 9:20 AM Passed - Visit with relevant provider in past 12 months or upcoming 90 days Recent Visits Date Type Provider Dept 02/25/23 Office Visit Bonnie Jolley MD [facility] 11/25/22 Office Visit Bonnie Jolley MD [facility] 07/30/22 Office Visit Michelle Goodwin PAC [facility] 05/25/22 Office Visit Bonnie Jolley MD [facility] Showing recent visits within past 365 days and meeting all other requirements Future Appointments Date Type Provider Dept 07/27/23 Appointment Bonnie Jolley MD [facility] Showing future appointments within next 90 days and meeting all other requirements amitriptyline (ELAVIL) 25 MG Tablet [Pharmacy Med Name: AMITRIPTYLINE 25MG TABLETS] 90 Tablet 1 Sig: TAKE 1 TABLET BY MOUTH EVERY NIGHT Not Delegated - Tricyclic Agents Protocol Failed - 05/24/2023 9:20 AM Failed - This refill cannot be delegated Passed - Visit with relevant provider in past 12 months or upcoming 90 days Recent Visits Date Type Provider Dept 02/25/23 Office Visit Bonnie Jolley MD [facility] 11/25/22 Office Visit Bonnie Jolley MD [facility] 07/30/22 Office Visit [facility] Good[facility], [facility] 05/25/22 Office Visit Bonnie Jolley MD [facility] Showing recent visits within past 365 days and meeting all other requirements Future Appointments Date Type Provider Dept 07/27/23 Appointment Bonnie Jolley MD [facility] Showing future appointments within next 90 days and meeting all other requirements documented in this encounter Plan of Treatment Upcoming Encounters Date Type Department Care Team (Late st Contact Info) Description 07/05/2025 1:30 PM CDT Office Visit [facility] [place] [address]2 [place] [address] Jory Paz APRN, CORPORATE PARALEGAL [address] [phone] documented as of this encounter Visit Diagnoses Not on filedocumented in this encounter Additional Health Concerns Assessment Noted Time PHQ-9 Depression Total Score: 0 08/21/20 21 12:57 PM CDT documented as of this encounter Care Teams Cellophaner Relationship Specialty Start Date End Date Max Cervantes MD [address] [place] [address] PCP - General Family Medicine 09/09/23 06/14/24 Jory Paz APRN, CORPORATE PARALEGAL [address] [address] PCP - General Advanced Practice Nurse 07/04/24 documented as of this encounter
--- OUTSIDE RECORDS SUMMARY | 2025-02-16 15:25 | XMS_ITS | Encounter Summary ---
Author Organization [facility] Address [address] [facility] 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 documented in this encounter Plan of Treatment Upcoming Encounters Date Type Department Care Team (Late st Contact Info) Description 07/05/2025 1:30 PM CDT Office Visit [facility] - Family [facility] [address] [place] [address] Jory Paz APRN, CONING MACHINE OPERATOR #[address] [address] documented as of this encounter Visit Diagnoses Not on filedocumented in this encounter Additional Health Concerns Assessment Noted Time PHQ-9 Depression Total Score: 0 08/21/20 21 12:57 PM CDT documented as of this encounter Care Teams Photography Assistant Relationship Specialty Start Date End Date Max Cervantes MD [address] [place] [address] PCP - General Family Medicine 09/09/23 06/14/24 Jory Paz APRN, CONING MACHINE OPERATOR #[address] [phone] PCP - General Advanced Practice Nurse 07/04/24 documented as of this encounter
--- OUTSIDE RECORDS SUMMARY | 2025-02-16 15:25 | XMS_ITS | Encounter Summary ---
Author Organization [facility] Address [address] [facility] [place] [address] Phone Care Team Providers Care Enrobing Machine Feeder Name Role Phone Max Cervantes MD Primary Care Provider [phone] Jory Paz APRN, CNP Primary Care Provid er Reason for Visit * Reason Comments Medication Refill Encounter Details Date Type Department Care Team (Late st Contact Info) Description 08/20/2020 Refill [facility] #2 [place] [address] Bonnie Jolley MD [address]2 [place] [address] Medication Refill Social History Tobacco Use Types Packs/Day Years Used Date Smoking Tobacco: Never Smokeless Tobacco: Never Alcohol Use Standard Drinks/Week Comments Yes 0 (1 standard drink = 0.6 oz pur e alcohol) rarely PHQ-2 Answer Date Recorded PHQ-2 Score 0 07/22/2019 Comments No Sex and Gender Information Value Date Recorded Sex Assigned at Not on file Legal Sex Female 10:20 PM CDT Gender Identity Female 09/27/2023 8:13 PM MECHANICAL PRODUCT ENGINEER Sexual Orientation Straight 09/27/2023 8: 13 PM MECHANICAL PRODUCT ENGINEER 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 Not 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 Medical [facility] - Bonnie Rutherford MD 11 months ago Encounter for immunization [facility] - Bonnie Rutherford MD 1 year ago Psychophysiological insomnia [facility] - Bonnie Rutherford MD 1 year ago Dysuria [facility] Family [facility] Michelle Wesley PAC 1 year ago Essential hypertension [facility] Family [facility] Bonnie Rutherford MD Upcoming Appointments Future Appointments In [address] Mammography, [facility] In 2 months Bonnie Jolley MD [facility] HARNESS MENDER - Recent and Past Visits Recent Visits Date Type Provider Dept 04/30/20 Office Visit Bonnie Jolley MD [facility] 09/05/19 Office Visit Bonnie Jolley MD [facility] 08/08/19 Office Visit Bonnie Jolley MD [facility] 08/02/19 Office Visit Michelle Goodwin PAC [facility] 05/29/19 Office Visit Bonnie Jolley MD [facility] Showing recent visits within past 460 days with a meds authorizing provider and meeting all other requirements Future Appointments Date Type Provider Dept 10/29/20 Appointment Bonnie Jolley MD [facility] Showing future appointments within next 90 days with a meds authorizing provider and meeting all other requirements Passed - Last BP in normal range BP Readings from Last 1 Encounters: 04/30/20 130/80 amitriptyline (ELAVIL) 25 MG Tablet [Pharmacy Med Name: AMITRIPTYLINE 25MG TABLETS] 90 Tab 0 Sig: TAKE 1 TABLET BY MOUTH NIGHTLY Not Delegated - Psychiatry: Antidepressants - Heterocyclics (TCAs) Failed - 08/20/2020 7:13 AM Failed - This refill cannot be delegated Passed - Valid encounter within last 12 months Past Office Visits Recent Outpatient Visits 3 months ago Polyarthralgia [facility] Family [facility] - Bonnie Rutherford MD 11 months ago Encounter for immunization [facility] - Bonnie Rutherford MD 1 year ago Psychophysiological insomnia [facility] - Bonnie Rutherford MD 1 year ago Dysuria [facility] Michelle Wesley PAC 1 year ago Essential hypertension [facility] Bonnie Rutherford MD Upcoming Appointments Future Appointments In [address] Mammography, [facility] In 2 months Bonnie Jolley MD [facility] HARNESS MENDER - Recent and Past Visits Recent Visits Date Type Provider Dept 04/30/20 Office Visit Bonnie Jolley MD [facility] 09/05/19 Office Visit Bonnie Jolley MD [facility] 08/08/19 Office Visit Bonnie Jolley MD [facility] 08/02/19 Office Visit Michelle Goodwin PAC [facility] 05/29/19 Office Visit Bonnie Jolley MD [facility] Showing recent visits within past 460 days with a meds authorizing provider and meeting all other requirements Future Appointments Date Type Provider Dept 10/29/20 Appointment Bonnie Jolley MD [facility] Showing future appointments within next 90 days with a meds authorizing provider and meeting all other requirements Passed - Last BP in normal range BP Readings from Last 1 Encounters: 04/30/20 130/80 documented in this encounter Plan of Treatment Upcoming Encounters Date Type Department Care Team (Late st Contact Info) Description 07/05/2025 1:30 PM CDT Office Visit [facility] Medical Group - Family [facility] #2 [place] [address] Jory Paz APRN, BACKGROUND CHECK COORDINATOR #[address] [phone] documented as of this encounter Visit Diagnoses Not on filedocumented in this encounter Additional Health Concerns Infection Onset Date Last Indicated Resolved Time COVID - 19 10/07/2021 10/07/2021 10/27/2021 12:1 6 AM MECHANICAL PRODUCT ENGINEER Assessment Noted Time PHQ-9 Depression Total Score: 0 04/30/20 1:43 PM CDT documented as of this encounter Care Teams Enrobing Machine Feeder Relationship Specialty Start Date End Date Max Cervantes MD [address] [place] [address] PCP - General Family Medicine 09/09/23 06/14/24 Jory Paz APRN, SHIRA [id number] [address] PCP - General Advanced Practice Nurse 07/04/24 documented as of this encounter
--- OUTSIDE RECORDS SUMMARY | 2025-02-16 15:25 | XMS_ITS | Referral Summary ---
Author Organization [address] Address [address] [place] [phone] Care Team Providers Care Pallet Repairer Name Role Phone Bonnie Jolley MD Unavailable [phone] Jory Paz NP Primary Care Provider + Encounters Date Type Department Care Team Description 02/13/2025 1:45 PM CDT Office [place] [facility] [address] [place] [phone] Jg Alves MD Aneurysm (Primary Dx); Dizziness 02/01/2025 Results Follow-Up [facility] - [address] [phone] Estela Corona DO 01/31/2025 7:57 AM CDT - 01/31/2025 11:59 PM CDT Hospital Encounter [facility] [address] [place] [address] Double vision; Dizziness and giddiness Discharge Disposition: Discharge to home or self care 01/18/2025 1:00 PM CDT Office Visit [facility] - [address] [address] Estela Corona DO Double vision (Primary Dx); Dizziness and giddiness; Dizziness 12/22/2024 8:45 AM TRAILER MECHANIC Office Visit [facility] - [address] [phone] Estela Corona, DO Benign paroxysmal positional vertigo of left ear (Primary Dx); Tongue sore 12/05/2024 9:15 AM TRAILER MECHANIC Office Visit [facility] [address] [place] [address] [address] [place] [phone] Jg Alves MD Dizziness (Primary Dx); Double vision; Fall, subsequent encounter 11/23/2024 10:15 AM TRAILER MECHANIC Office Visit [facility] - [address] [place] [phone] Estela Corona, DO Benign paroxysmal positional vertigo of left ear (Primary Dx) from Last 3 Months Allergies Active Allergy Reactions Criticality Noted Date [...] 12/22/2024 Assessment & Plan (12/22/2024 9:08 AM TRAILER MECHANIC): Currently resolved, Agree with Dental evaluation for possible dental contribution though suspect viral exanthem from viral pharyngitis two weeks ago. Benign paroxysmal positional vertigo of left ear 11/23/2024 Assessment & Plan (12/22/2024 9:05 AM TRAILER MECHANIC): Left Benign Positional Vertigo treated with Marcial maneuver today 64 ounces of caffeine free and soda free fluid daily If no improvement in room spinning, will plan in MRI Brain Assessment & Plan (11/23/2024 10:47 AM TRAILER MECHANIC): Left benign positional vertigo treated with Marcial maneuver today Follow up in 4 weeks to recheck Post-Marcial instructions discussed and Handout provided Dysfunction of left eustachian tube 01/14/2024 Assessment & Plan (10/18/2024 11:19 AM TRAILER MECHANIC): Decrease pantoprazole to 20 mg daily first [...] drainage Assessment & Plan (01/14/2024 11:32 AM TRAILER MECHANIC): Take Protonix first thing in the morning [...] 09/23/2022 Assessment & Plan (10/18/2024 11:19 AM TRAILER MECHANIC): Decrease pantoprazole to 20 mg daily first [...] drainage Assessment & Plan (01/14/2024 11:32 AM TRAILER MECHANIC): Take Protonix first thing in the morning 30-60 minutes before a meal or other medication, start Pepcid (famotidine) 40 mg at bedtime Avoid ear cleaning techniques Avoid water to ears Call if no improvement in cough in 3 months Follow up in 9 months for left ear tube check Assessment & Plan (09/23/2022 11:40 AM TRAILER MECHANIC): Zpak with a meal daily Call if [...] bone Assessment & Plan (09/23/2022 12:55 PM TRAILER MECHANIC): Improved Zpak with a meal daily Call [...] Associates Will obtain previous work up from [facility] Dizziness 06/17/2022 Assessment & Plan (01/18/2025 1:07 PM CDT): MRI Brain Centralized Scheduling: 64 ounces of caffeine free and soda free fluid daily Elevate head of bed at night Assessment & Plan (06/17/2022 9:52 AM CDT): Hearing and Balance Testing 64 ounces of caffeine free and soda free fluid daily [facility] Will obtain previous work up from [facility] Allergic purpura 01/23/2022 Gastroparesis 01/23/2022 IBS (irritable [...] Fatigue 03/30/2018 02/13/2025 Light sensitivity 03/30/2018 02/13/2025 Immunizations Immunization Administration Dates Next Due Influenza, Quadrivalent, Hig h Dose, Preservative Free, Intrr 07/21/2021,08/04/2020 Influenza, Quadrivalent, Spl it, Preservative Free, Intramuscular 08/02/2019,07/19/2018 Influenza, Trivalent, High D ose, Split, Preservative Free, Intramuscular 08/04/2020,08/10/2017,07/20/2016,08/23 Influenza, Trivalent, IM (MDV) 08/10/2017,2014 Pneumococcal Conjugate PCV 13 03/17/2016 Pneumococcal Polysaccharide PPV23 09/05/2019,11/2008 Tdap 11/08/2013 Social History Tobacco Use Types Packs/Day Years Used Date Smoking Tobacco: Never Smokeless Tobacco: Never Tobacco Cessation:Counseling Given: Not Answered Alcohol Use Standard Drinks/Week Comments Yes 0 (1 standard drink = 0.6 oz pur e alcohol) very rarely AUDIT-C Answer Date Recorded Q1: How often do you have a drink containing alc ohol? Never 01/23/2022 Average Number of Drinks Not on file 022 Q3: How often do you have si x or more drinks on one occasion? Never 01/23/2022 Comments No Sex and Gender Information Value Date Recorded Sex Assigned at Not on file Legal Sex Female 1:53 AM TRAILER MECHANIC Gender Identity Female 08/20/2021 11:20 AM CDT Sexual Orientation Not on file Occupation Industry Job Start Date Job End Date retired Not on file Not on file Not on file Last Filed Vital Signs Vital Sign Reading Time Taken Comments Blood Pressure 132/78 02/13/2025 1:22 PM CDT Pulse 78 02/13/2025 1:22 PM CDT Temperature 36.1 C (96.9 F) 01/14/2024 11:02 AM TRAILER MECHANIC Respiratory Rate 18 11/11/2023 8:59 AM TRAILER MECHANIC Oxygen Saturation 97% 02/13/2025 1:22 PM CDT Inhaled Oxygen Concentration - - Weight 86 kg (189 lb 9.6 oz) 02/13/2025 1:22 PM CDT Height 157.5 cm (5' 2.01 ) 02/13/2025 1:22 PM CD T Body Mass Index 34.67 02/13/2025 1:22 PM CDT Plan of Treatment Not on file Goals Goal Patient Goal Type Associated Problems Recent Progress Patient-Stated? Author CCM Chronic Pain Care Plan Chronic Care Management No Radinskaya, Etta V., RN Note: Problem: Chronic Pain Goals: 1. [...] Jae Christensen D.O. AP: RHODA Report ID: [id number] Reading Location: [id number] Procedure Note Jae Christensen, DO - 01/31/2025 [...] region multiple rounded T2 hyperintensities (series 7, -54) are nonspecific and could reflect prominent vessels [...] Jae Christensen D.O. AP: RHODA Report ID: [id number] Reading Location: [place] [address] Estela Corona DO IMG MRI PROCEDURES Final Res ult from Last 3 Months Insurance MEDICARE [facility] MEDICARE [facility] MEDICARE SUPPLEMENT MEDICARE [facility] MEDICARE SUPPLEMENT Care Teams Pallet Repairer Relationship Specialty Start Date End Date Jory Paz NP [address] [address] PCP - General Nurse Practitioner 12/05/24 Bonnie Jolley MD Referring Physician Family Medicine 10/04/23
--- OUTSIDE RECORDS SUMMARY | 2025-02-16 15:25 | XMS_ITS | Encounter Summary ---
Author Organization [facility] Address [address] [facility] [place] [address] Phone Care Team Providers Care Landing Gear Mechanic Name Role Phone Max Cervantes MD Primary Care Provider [phone] Jory Paz APRN, CNP Primary Care Provid er Reason for Visit * Reason Comments Medication Refill Encounter Details Date Type Department Care Team (Late st Contact Info) Description 03/20/2024 Refill [facility] - Family Medicine [facility] [address] [place] [id number] Max Cervantes MD [address] [place] [address] Medication Refill Social History Tobacco Use Types Packs/Day Years Used Date Smoking Tobacco: Never Smokeless Tobacco: Never Alcohol Use Standard Drinks/Week Comments Yes 0 (1 standard drink = 0.6 oz pur e alcohol) Socially only, rarely C Utilities Answer Date Recorded In the past 12 months has [employer] electric, gas, oil, or water company threatened to shut off services in your home? No 11/09/2023 Social Connection and Isolat ion Panel [NHANES] Answer Date Recorded In a typical week, how many times do you talk on the phone with family, friends, or neighbors? More than three times a week 11/09/2023 How often do you get togethe r with friends or relatives? Once a week 11/09/2023 How often do you attend chur ch or methodist services? More than 4 times per year 11/09/2023 Do you belong to any clubs o r organizations such as christian groups, unions, fraternal or athletic groups, or school groups? Yes 11/09/2023 How often do you attend meet ings of the clubs or organizations you belong to? 1 to 4 times per year 11/09/2023 Are you , , di vorced, , never , or living with a partner? 11/09/2023 AUDIT-C Answer Date Recorded Q1: How often do you have a drink containing alc ohol? Monthly or less 11/09/2023 Q2: How many drinks containi ng alcohol do you have on a typical day when you are drinking? Patient declined 11/09/2023 Q3: How often do you have si x or more drinks on one occasion? Never 11/09/2023 Overall Financial Resource Strain (CARDIA) Answe r Date Recorded How hard is it for you to pa y for the very basics like food, housing, medical care, and heating? Not very hard 11/09/2023 PHQ-2 Answer Date Recorded Total Score - Questions 1-9 0 08/08 [facility] - Occupational Stress Questionnaire Answer Date Recorded Do you feel stress - tense, restless, nervous, or anxious, or unable to sleep at night because your mind is troubled all the time - these days? Only a little 11/09/2023 Exercise Vital Sign Answer Date Recorde d On average, how many days pe r week do you engage in moderate to strenuous exercise (like a brisk walk)? 2 days On average, how many minutes do you engage in exercise at this level? Patient declined 11/09/2023 Hunger Vital Sign Answer Date Recorded Within the past 12 months, y ou worried that your food would run out before you got the money to buy more. Never true 11/09/19 24 Within the past 12 months, t he food you bought just didn't last and you didn't have money to get more. Never true 11/09/2023 PRAPARE - Transportation Answer Date Re corded In the past 12 months, has l ack of transportation kept you from medical appointments or from getting medications? No 12/2023 In the past 12 months, has l ack of transportation kept you from meetings, work, or from getting things needed for daily living? No 11/09/2023 Housing Stability Vital Sign Answer [...] place to sleep or slept in a nursing home (including now)? No 11/09/2023 Education Answer Date Recorded What is the highest level of school you have completed or the highest degree you have received? Some college, no degree 11/21/2021 Sexually Active Control Partners Comments Not Currently None Male Comments No Sex and Gender Information Value Date Recorded Sex Assigned at Not on file Legal Sex Female 10:20 PM CDT Gender Identity Female 09/27/2023 8:13 PM DEPUTY SHERIFF GENERALIST/BAILIFF Sexual Orientation Straight 09/27/2023 8: 13 PM DEPUTY SHERIFF GENERALIST/BAILIFF 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 Not on file Not on file Not on file documented as of this encounter Miscellaneous Notes * Telephone Encounter - Princess Ellis RN - 03/21/2024 7:40 AM CDT Medication failed the protocol, provider to review and approve the medication order if appropriate. Requested Prescriptions Pending Prescriptions Disp Refills DULoxetine (CYMBALTA) [address] Particles [Pharmacy Med Name: DULOXETINE DR 30MG CAPSULES] 90 Capsule 1 Sig: Take 1 Capsule by mouth daily. SNRI (6 Month Refill Only) Protocol Failed - 03/20/2024 11:48 AM Failed - Has an encounter in the past 6 months with a depression or anxiety visit diagnosis Passed - Visit with relevant provider in past 6 months or upcoming 90 days Recent Visits Date Type Provider Dept 03/17/24 Office Visit Max Cervantes MD [facility] 11/10/23 Office Visit Haroon Reyes APRN, SHIFT SUPERINTENDENT [facility] Showing recent visits within past 182 days and meeting all other requirements Future Appointments No visits were found meeting these conditions. Showing future appointments within next 90 days and meeting all other requirements Passed - Patient has established therapy with Serotonin-Norepinephrine Reuptake Inhibitors for at least 6 months documented in this encounter Plan of Treatment Upcoming Encounters Date Type Department Care Team (Late st Contact Info) Description 07/05/2025 1:30 PM CDT Office Visit [facility] - [facility] [address] [place] [address] Jory Paz APRN, SHIFT SUPERINTENDENT [address] [phone] documented as of this encounter Visit Diagnoses Diagnosis Generalized anxiety disorder Fibromyalgia Mylagia and myositis, unspecified documented in this encounter Additional Health Concerns Assessment Noted Time PHQ-9 Depression Total Score: 0 08/21/20 21 12:57 PM CDT documented as of this encounter Care Teams Landing Gear Mechanic Relationship Specialty Start Date End Date Max Cervantes MD [address] [place] [address] PCP - General Family Medicine 09/09/23 06/14/24 Jory Paz APRN, SHIRA [address] [address] PCP - General Advanced Practice Nurse 07/04/24 documented as of this encounter
--- OUTSIDE RECORDS SUMMARY | 2025-02-16 15:25 | XMS_ITS | Clinical Summary ---
Author Organization [facility] Address [address] [place] [address] Phone Care Team Providers Care Planograph Operator Name Role Phone KENIA BRONSON MD Primary Care Provider [phone] MICHAELA GONSALES MD Unavailable [phone] Reason for Visit and Chief Complaint CHART UPDATE Problems Includes: Problems addressed during this encounter and other active Problems Current Visit Onset Date Resolved Date Provider Conditio n Status History of Osteopenia 04/10/2014 MICHAELA GONSALES MD Active Last Documented On 04/10/2014 10:21AM ; [facility] Note: Unchanged History of Total Abdominal Hysterectomy 04/10/2014 MICHAELA GONSALES MD Active Last Documented On 04/10/2014 10:21AM ; [facility] Note: Unchanged - DR. LAM in 1982 d ue to fibroids Past Visits Onset Date Resolved Date Provider Condition Status Cystocele 12/13/2023 ELADIO Flynn [facility] Active Last Documented On 12/13/2023 2:41PM ; [facility] Note: Unchanged Urge Incontinence of Urine 07/03/2016 MICHAELA GONSALES MD Active Last Documented On 07/03/2016 10:26AM ; [facility] Note: Unchanged Breast Fibrocystic Disease 04/10/2014 MICHAELA GONSALES MD Active Last Documented On 04/10/2014 10:21AM ; [facility] Note: Unchanged Plan of Treatment No Plan of Treatment Recorded Assessments Includes: Assessments from this encounter Findings - [N39.0 - Urinary tract infection, site not specified] Urinary tract infection - Last Documented On 12/19/2023 8:14AM ; [facility] Medical Equipment - Implanted Devices Includes: Current Devices No Medical Equipment Recorded Medications Includes: Medications discussed during this encounter and other current Medications New / Renewed during this visit ELADIO ADLER RN VIKTORIYA on 12/19/2023 Nitrofurantoin Monohyd Macro 100 MG Oral Capsule Provider: ELADIO ADLER RN VIKTORIYA 7 day supply: 14 capsule, 0 refills Diagnosis: Urinary tract infection, site not specified 1 BID ONE TAB TWICE A DAY W/FOOD Pharmacy: [place] [id number] [address] , [facility], [phone] - Last Documented On 4 8:27AM By [facility] ; [facility] Current Medications (continue as prescribed) Flonase 50 MCG/ACT Nasal Suspension 08/21/2022 Provi chaz: Diagnosis: Last Documented On 2 2:40PM By DELILAH MIN ; [facility] Ipratropium Webster 0.03% Nasal Solution 08/21/2022 Provider: Diagnosis: Last Documented On 2 3:05PM By DELILAH MIN ; [facility] Melatonin 5 MG Oral Tablet 08/21/2022 Provider: Diagnosis: Last Documented On 2 2:42PM By DELILAH MIN ; [facility] DULoxetine HCl 20 MG Oral Capsule Delayed Releas e Particles 08/13/2020 Provider: Diagnosis: Last Documented On 0 12:43PM By Jermain MIN ; [facility] Losartan Potassium 100 MG Oral Tablet 08/13/2020 Pro vider: Diagnosis: Last Documented On 0 12:44PM By Jermain MIN ; [facility] Calcium 600 MG Oral Tablet 08/13/2020 Provider: Diagnosis: Last Documented On 0 12:45PM By Jermain MIN ; [facility] Pantoprazole Sodium 40 MG Oral Tablet Delayed Release 08/13/2020 Provider: Diagnosis: Last Documented On 0 12:45PM By Jermain MIN ; [facility] ProAir HFA 108 (90 Base) MCG/ACT Inhalation Aero aimee Solution 08/13/2020 Provider: Diagnosis: Last Documented On 0 12:46PM By Jermain MIN ; [facility] Amitriptyline HCl 25 MG Oral Tablet 08/13/2020 Provi chaz: Diagnosis: Last Documented On 0 12:43PM By Jermain MIN ; [facility] Rosuvastatin Calcium 10MG Oral Tablet 08/08/2018 Pro vider: Diagnosis: one a day Last Documented On 8 2:38PM By DELILAH RIVAS Rickey ; [facility] Dudley Fiber Good 2GM Oral Tablet Chewable 8 Provider: Diagnosis: 1-2 a day Last Documented On 8 2:36PM By DELILAH RIVAS Rickey ; [facility] Papaya Enzyme Oral Tablet 08/08/2018 Provider: Diagnosis: prn Last Documented On 8 2:36PM By DELILAH RIVAS Rickey ; [facility] Vitamin D3 2000UNIT Oral Capsule 08/08/2018 Provider : Diagnosis: one a day Last Documented On 8 2:37PM By DELILAH MIN ; [facility] Tylenol Extra Strength 500 MG OR TABS 04/10/2014 Pro vider: Diagnosis: Last Documented On 4 10:01AM By SARAH PANCHAL LPN ; [facility] hydroCHLOROthiazide 12.5 MG TABS 04/10/2014 Provider : Diagnosis: Last Documented On 4 9:57AM By SARAH PANCHAL LPN ; [facility] Medications Administered Includes: Administered Medications from this encounter No Administered Medications Recorded Results Includes: Results discussed during this encounter No Results Recorded For Specified Dates History of Present Illness Includes: History of Present Illness from this encounter No History of Present Illness Recorded Social History No Social History Recorded - Smoking Status Unknown Procedures and Surgical History Surgical History Last Updated Surgical / procedural histor y CYSTOCELE AND RECTOCELE by Dr Webb at [facility] on 08/16/2009 and then had to have the mesh released on 08/29/[address] [facility]. Since then she has seen Dr Estela Torre at [facility]. ~TEX CARPAL TUNNEL. ~bunion surgery in [facility] Dr Mantilla ~Left ear surgery 202108/21/2022 Last Documented On 4 8:12AM ; [facility] History of total hysterectomy 08/21 Last Documented On 4 8:12AM ; [facility] History of total abdominal h ysterectomy DR. LAM in 1982 due to fibroids 02/23/2012 Last Documented On 4 8:12AM ; [facility] Dilation + Curettage 02/22/2012 Last Documented On 4 8:12AM ; [facility] Tonsillectomy 02/22/2012 Last Documented On 4 8:12AM ; [facility] History of hysterectomy 02/22/2012 Last Documented On 4 8:12AM ; [facility] Medical History Includes: Medical History addressed during this encounter Description Last Updated History of a DXA of the lateral lumbar s pine was performed 08/15/2018 12/13/2023 Last Documented On 4 8:12AM ; [facility] History of screening mammogram was perfo rmed 10/06/2022 STA 12/13/2023 Last Documented On 4 8:12AM ; [facility] Last mammogram date: 10/06/2022 12/13/19 24 Last Documented On 4 8:12AM ; [facility] Anxiety 08/21/2022 Last Documented On 4 8:12AM ; [facility] Result: normal STA 08/21/2022 Last Documented On 4 8:12AM ; [facility] History of colonoscopy fiberoptic was pe rformed 05/07/2014 08/21/2022 Last Documented On 4 8:12AM ; [facility] Primary Care Provider: Dr. Bonnie Bronson retired 08/21/2022 Last Documented On 4 8:12AM ; [facility] A colonoscopy was performed 05/07/14 STA 12/02/2020 Last Documented On 4 8:12AM ; [facility] Patient recently had a dexa scan 018 [facility] 12/02/2020 Last Documented On 4 8:12AM ; [facility] Last pap smear date 04/10/2014 12/02/2020 Last Documented On 4 8:12AM ; [facility] LMP: 1983 12/02/2020 Last Documented On 4 8:12AM ; [facility] GLUTEN FREE-- avoiding Wheat , Dairy, and Potato per her report. ~Pt states has mild fibromyalgia dx'd in 2017: itching, neuropathy, carpal tunnnel again bilaterally, achiness, insomnia 08/08/2018 Last Documented On 4 8:12AM ; [facility] Not sexually active 08/08/2018 Last Documented On 4 8:12AM ; [facility] Vaginal delivery 07/03/2016 Last Documented On 4 8:12AM ; [facility] History of osteopenia 04/10/2014 Last Documented On 4 8:12AM ; [facility] History of chronic reflux esophagitis Last Documented On 4 8:12AM ; [facility] Recent change in medical his tory asthma on inhalers ~EGD 04/03/14 Dr Craig gastritis, ulcer, Pancho's, and hiatal hernia. Had CT with contrast 04/09/14 04/10/2014 Last Documented On 4 8:12AM ; [facility] Aborta 1 02/22/2012 Last Documented On 4 8:12AM ; [facility] 3 02/22/2012 Last Documented On 4 8:12AM ; [facility] Para 2 02/22/2012 Last Documented On 4 8:12AM ; [facility] History of urinary tract infection 02/21 Last Documented On 4 8:12AM ; [facility] Result: normal AND HPV NEGATIVE 02/22/20 12 Last Documented On 4 8:12AM ; [facility] Family History Includes: Family History addressed during this encounter Description Last Updated Sororal history of cancer skin cancer st age 1 08/21/2022 Last Documented On 4 8:12AM ; [facility] Family history of heart disease BROTHER AND SISTERS 02/22/2012 Last Documented On 4 8:12AM ; [facility] Family history of hypercholesterolemia P ATIENT AND PARENTS 02/22/2012 Last Documented On 4 8:12AM ; [facility] Family history of hypertension PATIENT A ND FAMILY HX OF 02/22/2012 Last Documented On 4 8:12AM ; [facility] Review of Systems Includes: Review of Systems from this encounter No Review of Systems Recorded Mental Status Includes: Mental Status from this encounter Description Anxiety Functional Status Includes: Functional Status from this encounter No Functional Status Recorded Physical Exam Includes: Physical Exam from this encounter No Physical Exam Recorded Allergies Includes: Active Allergies Substance Type Reaction Onset Date Resolved Date Statu s WHEAT Allergy 02/22/2012 Resolved Last Documented On 6 9:52AM ; [facility] POTATO Allergy 02/22/2012 Resolved Last Documented On 6 9:52AM ; [facility] Morphine Sulfate ER Allergy Nausea, Vomiting 08/21/2022 Active Last Documented On 4 1:41PM ; [facility] Macrolides and Ketolides Allergy Nausea 08/08/2018 Active Last Documented On 4 1:41PM ; [facility] Levaquin Allergy 08/08/2018 Active Last Documented On 4 1:41PM ; [facility] Note: tendonitis from taking per pt GLUTEN Allergy 02/22/2012 Resolved Last Documented On 6 9:52AM ; [facility] DAIRY Allergy 02/22/2012 Resolved Last Documented On 6 9:52AM ; [facility] Cipro Allergy 08/08/2018 Active Last Documented On 4 1:41PM ; [facility] Note: tendonitis from it Encounters Encounter Provider Location Date Check-In Time Check-Out Time Diagnosis CHART UPDATE ELADIO ADLER RN [facility] 4 8:13AM 11:59PM Urinary Tract Infection Insurance Includes: Active Insurance Policies Plan Name Member ID Group # Subscriber Relationship Effect jerry Dates 1 - MEDICARE PART A CLAIMS/NGS [id number] [employer] Self 2 - [facility] [id number] [employer] Self Clinical Notes Includes: Clinical Notes from this encounter * Progress note Date Encounter Last Documented by 12/19/2023 CHART UPDATE Last documented on 12/19/2023; 8:14 AM, ELADIO ADLER RN [facility]; [facility] Active Problems & Conditions - N60.19 - Breast Fibrocystic Disease - N81.10 - Cystocele - 733.90 - History of Osteopenia - V45.77 - History of Total Abdominal Hysterectomy - DR. LAM in 1982 due to fibroids - N39.41 - Urge Incontinence of Urine Current Medication - Amitriptyline HCl 25 MG Oral Tablet 0 days, 0 refills - Calcium 600 MG Oral Tablet 0 days, 0 refills - [facility] Melatonin 5 MG Oral Tablet 0 days, 0 refills - DULoxetine HCl 20 MG Oral Capsule Delayed Release Particles 0 days, 0 refills - Flonase 50 MCG/ACT Nasal Suspension 0 days, 0 refills - hydroCHLOROthiazide 12.5 MG Tablet 0 days, 0 refills - Ipratropium Webster 0.03% Nasal Solution 0 days, 0 refills - Losartan Potassium 100 MG Oral Tablet 0 days, 0 refills - Pantoprazole Sodium 40 MG Oral Tablet Delayed Release 0 days, 0 refills - Papaya Enzyme Oral Tablet prn, 0 days, 0 refills - Dudley Fiber Good 2GM Oral Tablet Chewable 2 GM 1-2 a day, 0 days, 0 refills - ProAir HFA 108 (90 Base) MCG/ACT Inhalation Aerosol Solution 0 days, 0 refills - Rosuvastatin Calcium 10MG Oral Tablet 10 MG one a day, 0 days, 0 refills - Tylenol Extra Strength 500 MG Tablet 0 days, 0 refills - Vitamin D3 2000UNIT Oral Capsule 50 MCG (2000 UT) one a day, 0 days, 0 refills Past Medical/Surgical History Other: Primary Care Provider: Dr. Nicole since Dr Bronson retired. Anxiety Reported: Recent change in medical history asthma on inhalers EGD 04/03/14 Dr Craig gastritis, ulcer, Pancho's, and hiatal hernia. Had CT with contrast 04/09/14. LMP: 1982, Last pap smear date 04/10/2014 result: normal AND HPV NEGATIVE, and Last mammogram date: 10/06/2022 result: normal STA. Surgical / Procedural: Surgical / procedural history CYSTOCELE AND RECTOCELE by Dr Webb at [facility] on 08/16/2009 and then had to have the mesh released on 08/29/2009 [address] [facility]. Since then she has seen Dr Estela Torre at [facility]. TEX CARPAL TUNNEL. bunion surgery in [facility] Dr Mantilla Left ear surgery 2021. Tonsillectomy and Dilation + Curettage. Tests: A colonoscopy was performed 05/07/14 STA and patient recently had a dexa scan 08/15/2018 [facility]. : 3, para 2, aborta 1, and history of the : vaginal delivery. Sexual: Not sexually active. Other: Diaignostic fiberoptic colonoscopy 05/07/2014. Screening mammogram was performed 10/06/2022 STA. A DXA of the lateral lumbar spine was performed 08/15/2018 Diagnoses: Chronic reflux esophagitis. Urinary tract infection. Osteopenia GLUTEN FREE-- avoiding Wheat, Dairy, and Potato per her report. Pt states has mild fibromyalgia dx'd in 2017: itching, neuropathy, carpal tunnnel again bilaterally, achiness, insomnia. Surgical: - Hysterectomy - Total hysterectomy 1982 - Total abdominal hysterectomy DR. LAM in 1982 due to fibroids Allergies - Cipro - Levaquin - Macrolides and Ketolides Reaction: Nausea (Moderate to Severe) - Morphine Sulfate ER Reaction: Nausea, Vomiting Family History Heart disease BROTHER AND SISTERS Systemic hypertension PATIENT AND FAMILY HX OF Pure hypercholesterolemia PATIENT AND PARENTS Sororal: Cancer skin cancer stage 1 Assessment - [N39.0 - Urinary tract infection, site not specified] Urinary tract infection Plan StartCited - Other PHY ORDER/COMMENT Please inform pt. Rx at pharmacy for UTI thanks EndCited StartCited - Urinary tract infection, site not specified Nitrofurantoin Monohyd Macro 100 MG capsule 1 BID ONE TAB TWICE A DAY W/FOOD, 7 days, 0 refills EndCited Health Reminders - Mammogram satisfied 10/06/2022.
--- OUTSIDE RECORDS SUMMARY | 2025-02-16 15:25 | XMS_ITS ---
Author Organization [facility] Address [address] [place] [address] Phone Care Team Providers Care Check Processing Clerk Name Role Phone KENIA BRONSON MD Primary Care Provider [phone] DRU RIDLEY, MICHAELA Stroud Unavailable [phone] Problems Includes: Active, inactive, and resolved Problems All Visits Onset Date Resolved Date Provider Condition S tatus Cystocele 12/13/2023 ELADIO Flynn [facility] Active Last Documented On 12/13/2023 2:41PM ; [facility] Note: Unchanged Urge Incontinence of Urine 07/03/2016 MICHAELA SANCHEZ MD Active Last Documented On 07/03/2016 10:26AM ; [facility] Note: Unchanged Breast Fibrocystic Disease 04/10/2014 MICHAELA SANCHEZ MD Active Last Documented On 04/10/2014 10:21AM ; [facility] Note: Unchanged History of Osteopenia 04/10/2014 MICHAELA SANCHEZ MD Active Last Documented On 04/10/2014 10:21AM ; [facility] Note: Unchanged History of Total Abdominal Hysterectomy 04/10/2014 MICHAELA SANCHEZ MD Active Last Documented On 04/10/2014 10:21AM ; [facility] Note: Unchanged - DR. LAM in 1982 d ue to fibroids Urge Incontinence of Urine 10/14/2012 Unknown MICHAELA SANCHEZ MD Resolved Last Documented On 4 10:12AM ; [facility] Plan of Treatment Findings Encounter Date She will let us know if she has other problems in the meantime WELL WOMAN - ESTABLISHED PT with MICHAELA SANCHEZ MD 08/21/2022 Last Documented On 2 3:28PM ; [facility] Ordered follow-up visit 1 ye ar or as needed WELL WOMAN - ESTABLISHED PT with MICHAELA SANCHEZ MD 08/21/2022 Last Documented On 2 3:28PM ; [facility] She will let us know if she has other problems in the meantime ANNUAL FINANCIAL REPRESENTATIVE EXAM with MICHAELA SANCHEZ MD 08/13/2020 Last Documented On 0 1:36PM ; [facility] Ordered follow-up visit 1 ye ar or as needed ANNUAL FINANCIAL REPRESENTATIVE EXAM with MICHAELA SANCHEZ MD 08/13/2020 Last Documented On 0 1:36PM ; [facility] She will let us know if she has other problems in the meantime ANNUAL FINANCIAL REPRESENTATIVE EXAM with MICHAELA SANCHEZ MD 08/08/2018 Last Documented On 8 3:03PM ; [facility] Ordered follow-up visit 2 ye ars or as needed ANNUAL FINANCIAL REPRESENTATIVE EXAM with MICHAELA SANCHEZ MD 08/08/2018 Last Documented On 8 3:03PM ; [facility] She will let us know if she has other problems in the meantime ANNUAL FINANCIAL REPRESENTATIVE EXAM with MICHAELA SANCHEZ MD 07/03/2016 Last Documented On 6 10:27AM ; [facility] Ordered follow-up visit 2 ye ars or as needed ANNUAL FINANCIAL REPRESENTATIVE EXAM with MICHAELA SANCHEZ MD 07/03/2016 Last Documented On 6 10:27AM ; [facility] She will let us know if she has other problems in the meantime ANNUAL FINANCIAL REPRESENTATIVE EXAM with MICHAELA SANCHEZ MD 04/10/2014 Last Documented On 4 10:23AM ; [facility] Ordered follow-up visit 2 ye ars or as needed ANNUAL FINANCIAL REPRESENTATIVE EXAM with MICHAELA SANCHEZ MD 04/10/2014 Last Documented On 4 10:23AM ; [facility] She will let us know if she has other problems in the meantime ANNUAL FINANCIAL REPRESENTATIVE EXAM with MICHAELA SANCHEZ MD 07/01/2012 Last Documented On 2 12:26PM ; [facility] Ordered follow-up visit 1 ye ar or as needed ANNUAL FINANCIAL REPRESENTATIVE EXAM with MICHAELA SANCHEZ MD 07/01/2012 Last Documented On 2 12:26PM ; [facility] Referrals To Diagnosis Urologist SARAH MCCORD [facility] - [address] [place] [address] - Cystocele, unspecified Note: grade 2 cycstocele at rest, grade 3 w/cough, hx. of cystocele/rectocele repair 2008 [facility] Last Documented On 4 9:43AM ; [facility] Instructions to patient Return to the clinic if cond ition worsens or new symptoms arise Last Documented On 4 2:19PM ; [facility] Instructions for patient : B reast Self Exam discussed Last Documented On 2 3:03PM ; [facility] Instructions for patient : B reast Self Exam discussed Last Documented On 0 12:59PM ; [facility] Instructions for patient : B reast Self Exam discussed Last Documented On 8 2:41PM ; [facility] Instructions for patient : B reast Self Exam discussed Last Documented On 6 9:59AM ; [facility] Instructions for patient : B reast Self Exam discussed Last Documented On 4 10:00AM ; [facility] Instructions for patient : B reast Self Exam discussed Last Documented On 2 12:11PM ; [facility] Education and Decision Aids were provided during visit for: Patient counseling :unable t o void today, will send order to [facility] for urine culture Last Documented On 4 2:19PM ; [facility] STD screening offered and de clined Last Documented On 2 3:03PM ; [facility] Bone Mineral Density Screeni ng guidelines reviewed will do in 2022 Last Documented On 2 3:12PM ; [facility] Patient Education: Daily gayla cium and vitamin D Last Documented On 2 3:03PM ; [facility] Patient Education: weight be aring exercise Last Documented On 2 3:03PM ; [facility] Colonoscopy screening guidel mackenzie discussed Last Documented On 2 3:03PM ; [facility] STD screening offered and de clined Last Documented On 0 12:59PM ; [facility] Bone Mineral Density Screeni ng guidelines reviewed : will repeat after next visit in 2 years Last Documented On 0 1:24PM ; [facility] Patient Education: Daily gayla cium and vitamin D Last Documented On 0 12:59PM ; [facility] Patient Education: weight be aring exercise Last Documented On 0 12:59PM ; [facility] Colonoscopy screening guidel mackenzie discussed Last Documented On 0 12:59PM ; [facility] STD screening offered and de clined Last Documented On 8 2:41PM ; [facility] Bone Mineral Density Screeni ng guidelines reviewed Last Documented On 8 2:41PM ; [facility] Patient Education: Daily gayla cium and vitamin D Last Documented On 8 2:41PM ; [facility] Patient Education: weight be aring exercise Last Documented On 8 2:41PM ; [facility] Colonoscopy screening guidel mackenzie discussed Last Documented On 8 2:41PM ; [facility] STD screening offered and de clined Last Documented On 6 9:59AM ; [facility] Bone Mineral Density Screeni ng guidelines reviewed Last Documented On 6 9:59AM ; [facility] Patient Education: Daily gayla cium and vitamin D Last Documented On 6 9:59AM ; [facility] Patient Education: weight be aring exercise Last Documented On 6 9:59AM ; [facility] Colonoscopy screening guidel mackenzie discussed Last Documented On 6 9:59AM ; [facility] STD screening offered and de clined Last Documented On 4 10:00AM ; [facility] Bone Mineral Density Screeni ng guidelines reviewed Last Documented On 4 10:00AM ; [facility] Patient Education: Daily gayla cium and vitamin D Last Documented On 4 10:00AM ; [facility] Patient Education: weight be aring exercise Last Documented On 4 10:00AM ; [facility] Colonoscopy screening guidel mackenzie discussed Last Documented On 4 10:00AM ; [facility] Options for management are d iscussed. Reviewed that her oxybutynin is as generic as it gets. There are other meds in this category available to try each with their own effectivenss and side effects. Risks and benefits are reviewed and she confirms that she does not have glacuoma. She accepts samples of Toviaz 4 mg x 2 weeks and 8 mg x 2 weeks to use instead of her oxybutynin. She wiill call us in a month to let us know if she wants to continue with them or is going back to the Oxybutynin. She expresses understanding Last Documented On 2 10:15AM ; [facility] Bone Mineral Density Screeni ng guidelines reviewed Last Documented On 2 12:11PM ; [facility] Patient Education: Daily gayla cium and vitamin D Last Documented On 2 12:11PM ; [facility] Patient Education: weight be aring exercise Last Documented On 2 12:11PM ; [facility] Colonoscopy screening michelleumair mackenzie discussed Last Documented On 2 12:11PM ; [facility] Options for management are d iscussed. As antibiotics have worked in the past and her symptoms could be a UTI, urine for u/a and C&S is recommended. Discussed Rx now or wait for culture results and pt wants an antibiotic now. Will do a 7 day (not a 3 day) course of Bactrim DS and modify when culture returns if needed. Discussed with the vagina dry some of her irritation could be due to that dryness and topical estrogen is again suggested. This could be the next treatment angle if needed. Still additionally re starting the oxybutinin could be considered. Pt really isn't interested in taking an additional daily medicine again and would think that fourth. Follow up with urology could also be a good choice again as well. Pt expresses understanding and will progress as above Last Documented On 2 10:54PM ; [facility] Assessments Includes: Assessments for all patient encounters Findings Encounter Date Urinary tract infection CHART UPDATE with ELADIO ADLER RN [facility] 12/19/2023 Last Documented On 4 8:14AM ; [facility] Cystocele PROBLEM VISIT with ELADIO ADLER RN [facility] 12/13/2023 Last Documented On 4 2:41PM ; [facility] Urge incontinence of urine PROBLEM VISIT with SEGUNDO ADLER RN NP 12/13/2023 Last Documented On 4 2:41PM ; [facility] E-SCRIPT INCENTIVE WELL WOMAN - ESTABLISHED PT w ith MICHAELA SANCHEZ MD 08/21/2022 Last Documented On 2 3:28PM ; [facility] Fibrocystic disease of breast WELL WOMAN - ESTABLISHED PT with MICHAELA SANCHEZ MD 08/21/2022 Last Documented On 2 3:28PM ; [facility] NORMAL FEMALE EXAM WELL WOMAN - ESTABLISHED PT w ith MICHAELA SANCHEZ MD 08/21/2022 Last Documented On 2 3:28PM ; [facility] Osteopenia WELL WOMAN - ESTABLISHED PT with MICHAELA SANCHEZ MD 08/21/2022 Last Documented On 2 3:28PM ; [facility] Screening Malig. Neoplasm Rectum WELL WO MAN - ESTABLISHED PT with MICHAELA SANCHEZ MD 08/21/2022 Last Documented On 2 3:28PM ; [facility] Urge incontinence of urine WELL WOMAN - ESTABLISHED PT with MICHAELA SANCHEZ MD 08/21/2022 Last Documented On 2 3:28PM ; [facility] Urge incontinence of urine MED CHECK with MICHAELA SANCHEZ MD 12/02/2020 Last Documented On 1 4:11PM ; [facility] Urge incontinence of urine CONSULTATION with MICHAELA SANCHEZ MD 09/02/2020 Last Documented On 0 2:50PM ; [facility] Fibrocystic disease of breast ANNUAL FINANCIAL REPRESENTATIVE EXAM wi th MICHAELA SANCHEZ MD 08/13/2020 Last Documented On 0 1:36PM ; [facility] NORMAL FEMALE EXAM ANNUAL FINANCIAL REPRESENTATIVE EXAM with MICHAELA RODGERS MD 08/13/2020 Last Documented On 0 1:36PM ; [facility] Osteopenia ANNUAL FINANCIAL REPRESENTATIVE EXAM with MICHAELA CAMPBELL MD 08/13/2020 Last Documented On 0 1:36PM ; [facility] Screening Malig. Neoplasm Rectum ANNUAL FINANCIAL REPRESENTATIVE EXAM with MICHAELA SANCHEZ MD 08/13/2020 Last Documented On 0 1:36PM ; [facility] Urge incontinence of urine ANNUAL FINANCIAL REPRESENTATIVE EXAM with MICHAELA SANCHEZ MD 08/13/2020 Last Documented On 0 1:36PM ; [facility] Fibrocystic disease of breast ANNUAL FINANCIAL REPRESENTATIVE EXAM wi th MICHAELA SANCHEZ MD 08/08/2018 Last Documented On 8 3:03PM ; [facility] NORMAL FEMALE EXAM ANNUAL FINANCIAL REPRESENTATIVE EXAM with MICHAELA RODGERS MD 08/08/2018 Last Documented On 8 3:03PM ; [facility] Osteopenia ANNUAL FINANCIAL REPRESENTATIVE EXAM with MICHAELA CAMPBELL MD 08/08/2018 Last Documented On 8 3:03PM ; [facility] Screening Malig. Neoplasm Rectum ANNUAL FINANCIAL REPRESENTATIVE EXAM with MICHAELA SANCHEZ MD 08/08/2018 Last Documented On 8 3:03PM ; [facility] Fibrocystic disease of breast ANNUAL FINANCIAL REPRESENTATIVE EXAM wi th MICHAELA SANCHEZ MD 07/03/2016 Last Documented On 6 10:27AM ; [facility] NORMAL FEMALE EXAM ANNUAL FINANCIAL REPRESENTATIVE EXAM with MICHAELA RODGERS MD 07/03/2016 Last Documented On 6 10:27AM ; [facility] Osteopenia ANNUAL FINANCIAL REPRESENTATIVE EXAM with MICHAELA CAMPBELL MD 07/03/2016 Last Documented On 6 10:27AM ; [facility] Screening Malig. Neoplasm Rectum ANNUAL FINANCIAL REPRESENTATIVE EXAM with MICHAELA SANCHEZ MD 07/03/2016 Last Documented On 6 10:27AM ; [facility] Urge incontinence of urine ANNUAL FINANCIAL REPRESENTATIVE EXAM with MICHAELA SANCHEZ MD 07/03/2016 Last Documented On 6 10:27AM ; [facility] Breast fibrocystic disease ANNUAL FINANCIAL REPRESENTATIVE EXAM with MICHAELA SANCHEZ MD 04/10/2014 Last Documented On 4 10:23AM ; [facility] NORMAL FEMALE EXAM ANNUAL FINANCIAL REPRESENTATIVE EXAM with MICHAELA RODGERS MD 04/10/2014 Last Documented On 4 10:23AM ; [facility] Osteopenia ANNUAL FINANCIAL REPRESENTATIVE EXAM with MICHAELA CAMPBELL MD 04/10/2014 Last Documented On 4 10:23AM ; [facility] Screening Malig. Neoplasm Rectum ANNUAL FINANCIAL REPRESENTATIVE EXAM with MICHAELA SANCHEZ MD 04/10/2014 Last Documented On 4 10:23AM ; [facility] Postmenopausal atrophic vaginitis MED CHECK with MICHAELA SANCHEZ MD 10/14/2012 Last Documented On 2 10:20AM ; [facility] Urge incontinence of urine MED CHECK with MICHAELA SANCHEZ MD 10/14/2012 Last Documented On 2 10:20AM ; [facility] Breast fibrocystic disease ANNUAL FINANCIAL REPRESENTATIVE EXAM with MICHAELA SANCHEZ MD 07/01/2012 Last Documented On 2 12:26PM ; [facility] NORMAL FEMALE EXAM ANNUAL FINANCIAL REPRESENTATIVE EXAM with MICHAELA RODGERS MD 07/01/2012 Last Documented On 2 12:26PM ; [facility] Osteopenia ANNUAL FINANCIAL REPRESENTATIVE EXAM with MICHAELA CAMPBELL MD 07/01/2012 Last Documented On 2 12:26PM ; [facility] Postmenopausal atrophic vaginitis ANNUAL FINANCIAL REPRESENTATIVE EXA M with MICHAELA SANCHEZ MD 07/01/2012 Last Documented On 2 12:26PM ; [facility] Screening Malig. Neoplasm Rectum ANNUAL FINANCIAL REPRESENTATIVE EXAM with MICHAELA SANCHEZ MD 07/01/2012 Last Documented On 2 12:26PM ; [facility] Urge incontinence of urine ANNUAL FINANCIAL REPRESENTATIVE EXAM with MICHAELA SANCHEZ MD 07/01/2012 Last Documented On 2 12:26PM ; [facility] Urge incontinence of urine NEW ENROLLMENT SERVICES DEAN EXAM with MICHAELA SANCHEZ MD 02/22/2012 Last Documented On 2 10:55PM ; [facility] URINARY FREQUENCY NEW ENROLLMENT SERVICES DEAN EXAM with MICHAELA AMBROSE MD 02/22/2012 Last Documented On 2 10:55PM ; [facility] Instructions Includes: Instructions for all patient encounters Instructions to patient Return to the clinic if cond ition worsens or new symptoms arise Last Documented On 4 2:19PM ; [facility] Instructions for patient : B reast Self Exam discussed Last Documented On 2 3:03PM ; [facility] Instructions for patient : B reast Self Exam discussed Last Documented On 0 12:59PM ; [facility] Instructions for patient : B reast Self Exam discussed Last Documented On 8 2:41PM ; [facility] Instructions for patient : B reast Self Exam discussed Last Documented On 6 9:59AM ; [facility] Instructions for patient : B reast Self Exam discussed Last Documented On 4 10:00AM ; [facility] Instructions for patient : B reast Self Exam discussed Last Documented On 2 12:11PM ; [facility] Education and Decision Aids were provided during visit for: Patient counseling :unable t o void today, will send order to [facility] for urine culture Last Documented On 4 2:19PM ; [facility] STD screening offered and de clined Last Documented On 2 3:03PM ; [facility] Bone Mineral Density Screeni ng guidelines reviewed will do in 2022 Last Documented On 2 3:12PM ; [facility] Patient Education: Daily gayla cium and vitamin D Last Documented On 2 3:03PM ; [facility] Patient Education: weight be aring exercise Last Documented On 2 3:03PM ; [facility] Colonoscopy screening guidel mackenzie discussed Last Documented On 2 3:03PM ; [facility] STD screening offered and de clined Last Documented On 0 12:59PM ; [facility] Bone Mineral Density Screeni ng guidelines reviewed : will repeat after next visit in 2 years Last Documented On 0 1:24PM ; [facility] Patient Education: Daily gayla cium and vitamin D Last Documented On 0 12:59PM ; [facility] Patient Education: weight be aring exercise Last Documented On 0 12:59PM ; [facility] Colonoscopy screening guidel mackenzie discussed Last Documented On 0 12:59PM ; [facility] STD screening offered and de clined Last Documented On 8 2:41PM ; [facility] Bone Mineral Density Screeni ng guidelines reviewed Last Documented On 8 2:41PM ; [facility] Patient Education: Daily gayla cium and vitamin D Last Documented On 8 2:41PM ; [facility] Patient Education: weight be aring exercise Last Documented On 8 2:41PM ; [facility] Colonoscopy screening guidel mackenzie discussed Last Documented On 8 2:41PM ; [facility] STD screening offered and de clined Last Documented On 6 9:59AM ; [facility] Bone Mineral Density Screeni ng guidelines reviewed Last Documented On 6 9:59AM ; [facility] Patient Education: Daily gayla cium and vitamin D Last Documented On 6 9:59AM ; [facility] Patient Education: weight be aring exercise Last Documented On 6 9:59AM ; [facility] Colonoscopy screening guidel mackenzie discussed Last Documented On 6 9:59AM ; [facility] STD screening offered and de clined Last Documented On 4 10:00AM ; [facility] Bone Mineral Density Screeni ng guidelines reviewed Last Documented On 4 10:00AM ; [facility] Patient Education: Daily gayla cium and vitamin D Last Documented On 4 10:00AM ; [facility] Patient Education: weight be aring exercise Last Documented On 4 10:00AM ; [facility] Colonoscopy screening guidel mackenzie discussed Last Documented On 4 10:00AM ; [facility] Options for management are d iscussed. Reviewed that her oxybutynin is as generic as it gets. There are other meds in this category available to try each with their own effectivenss and side effects. Risks and benefits are reviewed and she confirms that she does not have glacuoma. She accepts samples of Toviaz 4 mg x 2 weeks and 8 mg x 2 weeks to use instead of her oxybutynin. She wiill call us in a month to let us know if she wants to continue with them or is going back to the Oxybutynin. She expresses understanding Last Documented On 2 10:15AM ; [facility] Bone Mineral Density Screeni ng guidelines reviewed Last Documented On 2 12:11PM ; [facility] Patient Education: Daily gayla cium and vitamin D Last Documented On 2 12:11PM ; [facility] Patient Education: weight be aring exercise Last Documented On 2 12:11PM ; [facility] Colonoscopy screening savage mann discussed Last Documented On 2 12:11PM ; [facility] Options for management are d iscussed. As antibiotics have worked in the past and her symptoms could be a UTI, urine for u/a and C&S is recommended. Discussed Rx now or wait for culture results and pt wants an antibiotic now. Will do a 7 day (not a 3 day) course of Bactrim DS and modify when culture returns if needed. Discussed with the vagina dry some of her irritation could be due to that dryness and topical estrogen is again suggested. This could be the next treatment angle if needed. Still additionally re starting the oxybutinin could be considered. Pt really isn't interested in taking an additional daily medicine again and would think that fourth. Follow up with urology could also be a good choice again as well. Pt expresses understanding and will progress as above Last Documented On 2 10:54PM ; [facility] Medical Equipment - Implanted Devices Includes: Current and historical Devices No Medical Equipment Recorded Medications Includes: Current and historical Medications Current Medications (continue as prescribed) Flonase 50 MCG/ACT Nasal Suspension 08/21/2022 Provi chaz: Diagnosis: Last Documented On 2 2:40PM By DELILAH MIN ; [facility] [facility] Ipratropium [place] 0.03% Nasal Solution 08/21/2022 Provider: Diagnosis: Last Documented On 2 3:05PM By DELILAH MNI ; [facility] Melatonin 5 MG Oral Tablet 08/21/2022 Provider: Diagnosis: Last Documented On 2 2:42PM By DELILAH MIN ; [facility] DULoxetine HCl 20 MG Oral Capsule Delayed Releas e Particles 08/13/2020 Provider: Diagnosis: Last Documented On 0 12:43PM By Jermain MIN ; [facility] Losartan Potassium 100 MG Oral Tablet 08/13/2020 Pro vider: Diagnosis: Last Documented On 0 12:44PM By Jermain MIN ; [facility] Calcium 600 MG Oral Tablet 08/13/2020 Provider: Diagnosis: Last Documented On 0 12:45PM By Jermain MIN ; [facility] Pantoprazole Sodium 40 MG Oral Tablet Delayed Release 08/13/2020 Provider: Diagnosis: Last Documented On 0 12:45PM By Jermain MIN ; [facility] ProAir HFA 108 (90 Base) MCG/ACT Inhalation Aero aimee Solution 08/13/2020 Provider: Diagnosis: Last Documented On 0 12:46PM By Jermain MIN ; [facility] Amitriptyline HCl 25 MG Oral Tablet 08/13/2020 Provi chaz: Diagnosis: Last Documented On 0 12:43PM By Jermain MIN ; [facility] Rosuvastatin Calcium 10MG Oral Tablet 08/08/2018 Pro vider: Diagnosis: one a day Last Documented On 8 2:38PM By DELILAH MIN ; [facility] Dudley Fiber Good 2GM Oral Tablet Chewable 8 Provider: Diagnosis: 1-2 a day Last Documented On 8 2:36PM By DELILAH MIN ; [facility] Papaya Enzyme Oral Tablet 08/08/2018 Provider: Diagnosis: prn Last Documented On 8 2:36PM By DELILAH MIN ; [facility] Vitamin D3 2000UNIT Oral Capsule 08/08/2018 Provider : Diagnosis: one a day Last Documented On 8 2:37PM By DELILAH MIN ; [facility] Tylenol Extra Strength 500 MG OR TABS 04/10/2014 Pro vider: Diagnosis: Last Documented On 4 10:01AM By SARAH PANCHAL LPN ; [facility] hydroCHLOROthiazide 12.5 MG TABS 04/10/2014 Provider : Diagnosis: Last Documented On 4 9:57AM By SARAH PANCHAL LPN ; [facility] Past Medications on file Nitrofurantoin Monohyd Macro 100 MG Oral Capsule 12/19/2023 - 12/26/2023 Provider: ELADIO ADLER RN [facility] Diagnosis: Urinary tract infection, site not specified 1 BID ONE TAB TWICE A DAY W/FOOD Last Documented On 4 8:27AM By ELADIO ADLER VIKTORIYA- ; [facility] Oxybutynin Chloride 5 MG Oral Tablet 08/21/2022 - 12/13/2023 Provider: MICHAELA Silva Diagnosis: Urge incontinenc e One tablet daily Last Documented On 12/13/2023 1:41PM By Ena Mcdaniel ; [facility] Myrbetriq 25 MG Oral Tablet Extended Release 24 Hour 12/02/2020 - 12/13/2023 Provider: MICHAELA Silva Diagnosis: Urge incontinenc e One tablet daily Last Documented On 12/13/2023 1:41PM By Ena Mcdaniel ; [facility] Myrbetriq 25 MG Oral Tablet Extended Release 24 Hour 09/24/2020 - 12/02/2020 Provider: MICHAELA Silva Diagnosis: Urge incontinenc e One tablet daily Last Documented On 12/02/2020 3:51PM By MICHAELA SANCHEZ MD ; [facility] Mobic 7.5 MG Oral Tablet 09/02/2020 - 08/21/2022 Provi chaz: Diagnosis: Last Documented On 2:40PM By DELILAH MIN ; [facility] Myrbetriq 25 MG Oral Tablet Extended Release 24 Hour 09/02/2020 - 09/20/2020 Provider: MICHAELA Silva Diagnosis: Urge incontinenc e One tablet daily 3 sample weeks dispensed Last Documented On 09/24/2020 4:19PM By MICHAELA SANCHEZ MD ; [facility] RaNITidine HCl 150MG Oral Capsule 08/08/2018 - 020 Provider: Diagnosis: one a day Last Documented On 0 12:47PM By Jermain MIN ; [facility] Omeprazole 20MG Oral Capsule Delayed Release 8 - 08/13/2020 Provider: Diagnosis: one a day Last Documented On 0 12:46PM By Jermain MIN ; [facility] Losartan Potassium 50MG Oral Tablet 08/08/2018 - 08/13 Provider: Diagnosis: one a day Last Documented On 0 12:44PM By Jermain MIN ; [facility] Systane Balance 0.6% Ophthalmic Solution 08/08/2018 - 08/13/2020 Provider: Diagnosis: Last Documented On 0 12:46PM By Jermain MIN ; [facility] Myrbetriq 25 MG Tablet, extended-release 24 hour 07/27/2016 - 08/13/2020 Provider: [facility] Diagnosis: Urge incontinenc e One tablet daily Last Documented On 0 12:44PM By Jermain MIN ; [facility] Myrbetriq 25 MG Tablet, extended-release 24 hour 07/03/2016 - 07/27/2016 Provider: MICHAELA SANCHEZ MD Diagnosis: Urge incontinenc e One tablet daily 3 sample weeks dispensed Last Documented On 6 11:44AM By [facility] ; [facility] Metamucil 0.52 GM Capsule, conventional 07/03/2016 - 1 Provider: Diagnosis: Last Documented On 8 2:30PM By DELILAH MIN ; [facility] GenTeal Mild 0.2 % Solution 07/03/2016 - 08/08/2018 Pr ovider: Diagnosis: Last Documented On 8 2:30PM By DELILAH MIN ; [facility] Systane Contacts Solution 07/03/2016 - 08/08/2018 Prov ider: Diagnosis: Last Documented On 8 2:31PM By DELILAH MIN ; [facility] Ondansetron HCl 4 MG Tablet 07/03/2016 - 08/08/2018 Pr ovider: Diagnosis: Last Documented On 8 2:30PM By DELILAH MIN ; [facility] RaNITidine HCl 300 MG Tablet 07/03/2016 - 08/08/2018 P rovider: Diagnosis: Last Documented On 8 2:31PM By DELILAH MIN ; [facility] ProAir HFA 108 (90 Base) MCG /ACT Aerosol, solution 07/03/2016 - 08/08/2018 Provider: Diagnosis: Last Documented On 8 2:31PM By DELILAH MIN ; [facility] Montelukast Sodium 10 MG Tablet 07/03/2016 - 8 Provider: Diagnosis: prn Last Documented On 8 2:30PM By DELILAH MIN ; [facility] Xanax 0.25 MG Tablet 07/03/2016 - 08/08/2018 Provider: Diagnosis: Last Documented On 8 2:31PM By DELILAH MIN ; [facility] tnsmutgbi806/4.5mg 160/4.5mg Inhalation (not specified) 07/03/2016 - 08/08/2018 Provider: Diagnosis: Last Documented On 8 2:31PM By DELILAH MIN ; [facility] Bactrim DS 800-160 MG Tablet 04/03/2015 - 08/13/2020 P vandanader: Diagnosis: Called to [facility] per Dr Sanchez's protocol. Last Documented On 0 12:44PM By Jermain MIN ; [facility] Bactrim DS 800-160 MG OR TABS 04/16/2014 - 08/13/2020 Provider: MICHAELA SANCHEZ MD Diagnosis: phoned to [facility]. Last Documented On 0 12:44PM By Jermain MIN ; [facility] Tylenol Sinus Congestion/Pain 2-5-325 MG OR TABS 04/10/2014 - 08/08/2018 Provider: Diagnosis: Last Documented On 8 2:33PM By DELILAH MIN ; [facility] Fish Oil 1000 MG OR CAPS 04/10/2014 - 08/13/2020 P rovider: Diagnosis: Last Documented On 0 12:46PM By Jermain MIN ; [facility] Probiotic OR CAPS 04/10/2014 - 08/08/2018 Provider : Diagnosis: Last Documented On 8 2:32PM By DELILAH MIN ; [facility] Vitamin D3 1000 UNIT OR CAPS 04/10/2014 - 08/08/20 18 Provider: Diagnosis: Last Documented On 8 2:32PM By DELILAH MIN ; [facility] Losartan Potassium 100 MG OR TABS 04/10/2014 - 018 Provider: Diagnosis: Last Documented On 8 2:33PM By DELILAH MIN ; [facility] Ventolin HFA 108 (90 Base) MCG/ACT IN AERS 04/10/2014 - 08/08/2018 Provider: Diagnosis: Last Documented On 8 2:33PM By DELILAH MIN ; [facility] Crestor 10 MG OR TABS 04/10/2014 - 08/08/2018 Provider : Diagnosis: Last Documented On 8 2:31PM By DELILAH MIN ; [facility] Dulera 100-5 MCG/ACT IN AERO 04/10/2014 - 08/08/2018 P rovider: Diagnosis: Last Documented On 8 2:32PM By DELILAH MIN ; [facility] Omeprazole 40 MG OR CPDR 04/10/2014 - 08/08/2018 Provi chaz: Diagnosis: Last Documented On 8 2:33PM By DELILAH MIN ; [facility] Posture-D Calcium/Magnesium [phone] OR TABS 04/10/2014 - 08/08/2018 Provider: Diagnosis: Last Documented On 8 2:33PM By DELILAH MIN ; [facility] Premarin 0.625 MG/GM VA CREA 10/14/2012 - 08/13/2020 P rovider: MICHAELA SANCHEZ MD Diagnosis: PEA SIZE 2X A WEEK 2 sample tubes dispensed Last Documented On 0 12:44PM By Jermain MIN ; [facility] Daily Value Multivitamin OR TABS 10/14/2012 - 04/10/20 14 Provider: Diagnosis: 1QD Last Documented On 4 9:50AM By SARAH PANCHAL LPN ; [facility] Chewable Vitamin C 500 MG OR CHEW 10/14/2012 - 014 Provider: Diagnosis: 1QD Last Documented On 4 9:50AM By SARAH PANCHAL LPN ; [facility] Calcium 600 MG OR TABS 10/14/2012 - 04/10/2014 Provide r: Diagnosis: 2 DAY Last Documented On 4 9:51AM By SARAH PANCHAL LPN ; [facility] Ibuprofen 200 MG OR TABS 10/14/2012 - 04/10/2014 P rovider: Diagnosis: 400MG DAILY PRN Last Documented On 4 9:50AM By SARAH PANCHAL LPN ; [facility] AzaSite 1% OP SOLN 10/14/2012 - 04/10/2014 Provider: Diagnosis: 1 GTT A DAY BOTH EYES CHRONIC DRY EYE Last Documented On 4 9:51AM By SARAH PANCHAL LPN ; [facility] Premarin 0.625 MG/GM VA CREA 10/14/2012 - 10/14/2012 P rovider: Diagnosis: PEA SIZE 2X A WEEK Last Documented On 10/14/2012 10:18AM By MICHAELA SANCHEZ MD ; [facility] Ventolin HFA 108 (90 Base) MCG/ACT IN AERS 10/14/2012 - 04/10/2014 Provider: Diagnosis: 2 PUFFS PRN Last Documented On 4 9:50AM By SARAH PANCHAL LPN ; [facility] Losartan Potassium 100 MG OR TABS 10/14/2012 - 014 Provider: Diagnosis: 1QD Last Documented On 4 9:50AM By SARAH PANCHAL LPN ; [facility] Nasonex 50 MCG/ACT NA SUSP 10/14/2012 - 04/10/2014 Pro vider: Diagnosis: 1 SPRAY A DAY Last Documented On 4 9:50AM By SARAH PANCHAL LPN ; [facility] Toviaz 8 MG OR TB24 10/14/2012 - 08/13/2020 Provider: MICHAELA SANCHEZ MD Diagnosis: use the 4 mg starter kit fir st and if needed move up to the 8 mg starter kit dispensed Last Documented On 0 12:44PM By Jermain MIN ; [facility] Toviaz 4 MG OR TB24 10/14/2012 - 08/13/2020 Provider: MICHAELA SANCHEZ MD Diagnosis: Starter sample kit dispensed Last Documented On 0 12:44PM By Jermain MIN ; [facility] oxyBUTYnin Chloride ER 10 MG OR TB24 07/01/2012 - 01/2014 Provider: Diagnosis: Last Documented On 4 9:50AM By SARAH PANCHAL LPN ; [facility] Diovan 160 MG OR TABS 07/01/2012 - 10/14/2012 Provider : Diagnosis: Last Documented On 10/14/2012 9:46AM By SHANNAN MCMILLAN LPN ; [facility] Bactrim DS 800-160 MG OR TABS 02/22/2012 - 10/14/2012 Provider: MICHAELA Silva Diagnosis: URINARY FREQUENC Y Last Documented On 10/14/2012 9:47AM By SHANNAN MCMILLAN LPN ; [facility] Crestor 10 MG OR TABS 02/22/2012 - 04/10/2014 Provider : Diagnosis: Last Documented On 4 9:50AM By SARAH PANCHAL LPN ; [facility] Proglycem 50 MG/ML OR SUSP 02/22/2012 - 10/14/2012 Pro vider: Diagnosis: Last Documented On 10/14/2012 9:46AM By SHANNAN MCMILLAN LPN ; [facility] Super [place] 3 EPA/DHA 1000 MG OR CAPS 02/22/2012 - 01/2014 Provider: Diagnosis: Last Documented On 4 9:49AM By SARAH PANCHAL LPN ; [facility] Vitamin D3 1000 UNIT OR CAPS 02/22/2012 - 04/10/20 14 Provider: Diagnosis: Last Documented On 4 9:49AM By SARAH PANCHAL LPN ; [facility] Ventolin HFA 108 (90 Base) MCG/ACT IN AERS 02/22/2012 - 04/10/2014 Provider: Diagnosis: 2 puffs PRN Last Documented On 4 9:49AM By SARAH PANCHAL LPN ; [facility] Metoprolol Succinate ER 100 MG OR TB24 02/22/2012 - Provider: Diagnosis: Last Documented On 10/14/2012 9:47AM By SHANNAN MCMILLAN LPN ; [facility] Bactrim DS 800-160 MG OR TABS 01/21/2012 - 10/14/2012 Provider: MICHAELA SANCHEZ MD Diagnosis: Last Documented On 10/14/2012 9:47AM By SHANNAN MCMILLAN LPN ; [facility] Bactrim DS 800-160 MG OR TABS 09/14/2011 - 01/21/2012 Provider: MICHAELA SANCHEZ MD Diagnosis: Last Documented On 01/21/2012 10:49AM By MICHAELA SANCHEZ MD ; [facility] Bactrim DS 800-160 MG OR TABS 07/16/2011 - 09/14/2011 Provider: MICHAELA SANCHEZ MD Diagnosis: Last Documented On 09/14/2011 12:42PM By MICHAELA SANCHEZ MD ; [facility] Medications Administered Includes: Administered Medications in patient's chart No Administered Medications Recorded Results Includes: Results from 02/17/2024 through 02/16/2025 No Results Recorded For Specified Dates History of Present Illness History of Present Illness not supported for this document type No History of Present Illness Recorded Social History Description Last Updated Retired 08/08/2018 Last Documented On 8 3:03PM ; [facility] Exercising regularly 3 x week 08/08/2018 Last Documented On 8 3:03PM ; [facility] Sexually active with 0 partners in the l ast year 08/08/2018 Last Documented On 8 3:03PM ; [facility] Social history unchanged 04/10/2014 Last Documented On 4 10:23AM ; [facility] Smoking status : Never smoker 04/10/2014 Last Documented On 4 10:23AM ; [facility] Marital history 02/22/2012 Last Documented On 2 10:55PM ; [facility] Non-smoker 02/22/2012 Last Documented On 2 10:55PM ; [facility] Not using alcohol 02/22/2012 Last Documented On 2 10:55PM ; [facility] Not using drugs 02/22/2012 Last Documented On 2 10:55PM ; [facility] Procedures and Surgical History Surgical History Last Updated Surgical / procedural histor y CYSTOCELE AND RECTOCELE by Dr Webb at [facility] on 08/16/2009 and then had to have the mesh released on 08/29/2009 at [facility]. Since then she has seen Dr Estela Torre at [facility] ~TEX CARPAL TUNNEL. ~bunion surgery in [facility] Dr Mantilla ~Left ear surgery 202108/21/2022 Last Documented On 2 3:28PM ; [facility] History of total hysterectomy 08/21 Last Documented On 2 3:28PM ; [facility] History of total abdominal h ysterectomy DR. LAM in 1982 due to fibroids 02/23/2012 Last Documented On 2 10:55PM ; [facility] Dilation + Curettage 02/22/2012 Last Documented On 2 10:55PM ; [facility] Tonsillectomy 02/22/2012 Last Documented On 2 10:55PM ; [facility] History of hysterectomy 02/22/2012 Last Documented On 2 10:55PM ; [facility] Medical History Includes: Medical History in patient's chart Description Last Updated History of a DXA of the lateral lumbar s pine was performed 08/15/2018 12/13/2023 Last Documented On 4 2:41PM ; [facility] History of screening mammogram was perfo rmed 10/06/2022 STA 12/13/2023 Last Documented On 4 2:41PM ; [facility] Last mammogram date: 10/06/2022 12/13/19 Last Documented On 4 2:41PM ; [facility] Anxiety 08/21/2022 Last Documented On 2 3:28PM ; [facility] Result: normal STA 08/21/2022 Last Documented On 2 3:28PM ; [facility] History of colonoscopy fiberoptic was pe rformed 05/07/2014 08/21/2022 Last Documented On 2 3:28PM ; [facility] Primary Care Provider: Dr. Bonnie Bronson retired 08/21/2022 Last Documented On 2 3:28PM ; [facility] A colonoscopy was performed 05/07/14 STA 12/02/2020 Last Documented On 1 4:11PM ; [facility] Patient recently had a dexa scan 018 [facility] 12/02/2020 Last Documented On 1 4:11PM ; [facility] Last pap smear date 04/10/2014 12/02/2020 Last Documented On 1 4:11PM ; [facility] LMP: 198212/02/2020 Last Documented On 1 4:11PM ; [facility] GLUTEN FREE-- avoiding Wheat , Dairy, and Potato per her report. ~Pt states has mild fibromyalgia dx'd in 2017: itching, neuropathy, carpal tunnnel again bilaterally, achiness, insomnia 08/08/2018 Last Documented On 8 3:03PM ; [facility] Not sexually active 08/08/2018 Last Documented On 8 3:03PM ; [facility] Vaginal delivery 07/03/2016 Last Documented On 6 10:27AM ; [facility] History of osteopenia 04/10/2014 Last Documented On 4 10:23AM ; [facility] History of chronic reflux esophagitis Last Documented On 4 10:23AM ; [facility] Recent change in medical his tory asthma on inhalers ~EGD 04/03/14 Dr Craig gastritis, ulcer, Pancho's, and hiatal hernia. Had CT with contrast 04/09/14 04/10/2014 Last Documented On 4 10:23AM ; [facility] Aborta 1 02/22/2012 Last Documented On 2 10:55PM ; [facility] 3 02/22/2012 Last Documented On 2 10:55PM ; [facility] Para 2 02/22/2012 Last Documented On 2 10:55PM ; [facility] History of urinary tract infection 02/21 Last Documented On 2 10:55PM ; [facility] Result: normal AND HPV NEGATIVE 02/22/20 12 Last Documented On 2 10:55PM ; [facility] Family History Includes: Family History in patient's chart Description Last Updated Sororal history of cancer skin cancer st age 1 08/21/2022 Last Documented On 2 3:28PM ; [facility] Family history of heart disease BROTHER AND SISTERS 02/22/2012 Last Documented On 2 10:55PM ; [facility] Family history of hypercholesterolemia P ATIENT AND PARENTS 02/22/2012 Last Documented On 2 10:55PM ; [facility] Family history of hypertension PATIENT A ND FAMILY HX OF 02/22/2012 Last Documented On 2 10:55PM ; [facility] Review of Systems Review of Systems not supported for this document type No Review of Systems Recorded Mental Status Description Anxiety Functional Status No Functional Status Recorded Physical Exam Physical Exam not supported for this document type No Physical Exam Recorded Allergies Includes: Active, inactive, and resolved Allergies Substance Type Reaction Onset Date Resolved Date Statu s WHEAT Allergy 02/22/2012 Resolved Last Documented On 6 9:52AM ; [facility] POTATO Allergy 02/22/2012 Resolved Last Documented On 6 9:52AM ; [facility] Morphine Sulfate ER Allergy Nausea, Vomiting 08/21/2022 Active Last Documented On 4 1:41PM ; [facility] Macrolides and Ketolides Allergy Nausea 08/08/2018 Active Last Documented On 4 1:41PM ; [facility] Levaquin Allergy 08/08/2018 Active Last Documented On 4 1:41PM ; [facility] Note: tendonitis from taking per pt GLUTEN Allergy 02/22/2012 Resolved Last Documented On 6 9:52AM ; [facility] DAIRY Allergy 02/22/2012 Resolved Last Documented On 6 9:52AM ; [facility] Cipro Allergy 08/08/2018 Active Last Documented On 4 1:41PM ; [facility] Note: tendonitis from it Insurance Includes: Active Insurance Policies Plan Name Member ID Group # Subscriber Relationship Effect jerry Dates 1 - MEDICARE PART A CLAIMS/NGS [id number] [employer] Self 2 - [facility] [id number] VINEET Navarro Clinical Notes Includes: Signed Clinical Notes starting from 11/27/2022 No Clinical Notes Recorded
--- OUTSIDE RECORDS SUMMARY | 2025-02-16 15:25 | XMS_ITS | Clinical Summary ---
Author Organization [facility] Address [address] [place] [address] Phone Care Team Providers Care Aircraft Servicer Name Role Phone KENIA BRONSON MD Primary Care Provider [phone] DRU RIDLEY, MICHAELA Stroud Unavailable [phone] Reason for Visit and Chief Complaint The Chief Complaint is: Pt complains of a possible prolapse. Pt has been seen twice for a UTI, alsohad MRI and x-ray Problems Includes: Problems addressed during this encounter and other active Problems Current Visit Onset Date Resolved Date Provider Conditio n Status Cystocele 12/13/2023 ELADIO Flynn [facility] Active Last Documented On 12/13/2023 2:41PM ; [facility] Note: Unchanged Urge Incontinence of Urine 07/03/2016 MICHAELA GONSALES MD Active Last Documented On 07/03/2016 10:26AM ; [facility] Note: Unchanged History of Osteopenia 04/10/2014 MICHAELA GONSALES MD Active Last Documented On 04/10/2014 10:21AM ; [facility] Note: Unchanged History of Total Abdominal Hysterectomy 04/10/2014 MICHAELA OGNSALES MD Active Last Documented On 04/10/2014 10:21AM ; [facility] Note: Unchanged - DR. LAM in 1982 d ue to fibroids Urge Incontinence of Urine 10/14/2012 Unknown MICHAELA GONSALES MD Resolved Last Documented On 10:12AM ; [facility] Past Visits Onset Date Resolved Date Provider Condition Status Breast Fibrocystic Disease 04/10/2014 MICHAELA GONSALES MD Active Last Documented On 04/10/2014 10:21AM ; [facility] Note: Unchanged Plan of Treatment Referrals To Diagnosis Urologist SARAH MCCORD MD - [facility] - [address] [place] [address] - Cystocele, unspecified Note: grade 2 cycstocele at rest, grade 3 w/cough, hx. of cystocele/rectocele repair 2008 [facility] Last Documented On 4 9:43AM ; [facility] Instructions to patient Return to the clinic if cond ition worsens or new symptoms arise Last Documented On 4 2:19PM ; [facility] Education and Decision Aids were provided during visit for: Patient counseling :unable t o void today, will send order to [facility] for urine culture Last Documented On 4 2:19PM ; [facility] Assessments Includes: Assessments from this encounter Findings - [N81.10 - Cystocele, unspecified] Cystocele - Last Documented On 12/13/2023 2:41PM ; [facility] - [N39.41 - Urge incontinence] Urge incontinence of urine - Last Documented On 12/13/2023 2:41PM ; [facility] Instructions Includes: Instructions from this encounter Instructions to patient Return to the clinic if cond ition worsens or new symptoms arise Last Documented On 4 2:19PM ; [facility] Education and Decision Aids were provided during visit for: Patient counseling :unable t o void today, will send order to [facility] for urine culture Last Documented On 4 2:19PM ; [facility] Medical Equipment - Implanted Devices Includes: Current Devices No Medical Equipment Recorded Medications Includes: Medications discussed during this encounter and other current Medications Discontinued / Stopped on this date MICHAELA GONSALES MD on 08/21/2022 Oxybutynin Chloride 5 MG Oral Tablet Prov ider: MICHAELA GONSALES MD Diagnosis: Urge incontinenc e Last Documented On 12/13/2023 1:41PM By Ena Mcdaniel ; [facility] Myrbetriq 25 MG Oral Tablet Extended Release 24 Hour Provider: MICHAELA GONSALES MD Diagnosis: Urge incontinenc e Last Documented On 12/13/2023 1:41PM By Ena Mcdnaiel ; [facility] Current Medications (continue as prescribed) Flonase 50 MCG/ACT Nasal Suspension 08/21/2022 Provi chaz: Diagnosis: Last Documented On 2 2:40PM By DELILAH MIN ; [facility] Ipratropium [place] 0.03% Nasal Solution 08/21/2022 Provider: Diagnosis: Last Documented On 2 3:05PM By DELILAH MIN ; [facility] Melatonin 5 MG Oral Tablet 08/21/2022 Provider: Diagnosis: Last Documented On 2 2:42PM By DELILAH MIN ; [facility] DULoxetine HCl 20 MG Oral Capsule Delayed Releas e Particles 08/13/2020 Provider: Diagnosis: Last Documented On 0 12:43PM By Jermain MIN ; [facility] Losartan Potassium 100 MG Oral Tablet 08/13/2020 Pro vider: Diagnosis: Last Documented On 0 12:44PM By Jermain MIN ; [facility] Calcium 600 MG Oral Tablet 08/13/2020 Provider: Diagnosis: Last Documented On 0 12:45PM By Jermain MIN ; [facility] Pantoprazole Sodium 40 MG Oral Tablet Delayed Release 08/13/2020 Provider: Diagnosis: Last Documented On 0 12:45PM By Jermain MIN ; [facility] ProAir HFA 108 (90 Base) MCG/ACT Inhalation Aero aimee Solution 08/13/2020 Provider: Diagnosis: Last Documented On 0 12:46PM By Jermain MIN ; [facility] Amitriptyline HCl 25 MG Oral Tablet 08/13/2020 Provi chaz: Diagnosis: Last Documented On 0 12:43PM By Jermain MIN ; [facility] Rosuvastatin Calcium 10MG Oral Tablet 08/08/2018 Pro vider: Diagnosis: one a day Last Documented On 8 2:38PM By DELILAH MIN ; [facility] Dudley Fiber Good 2GM Oral Tablet Chewable 8 Provider: Diagnosis: 1-2 a day Last Documented On 8 2:36PM By DELILAH MIN ; [facility] Papaya Enzyme Oral Tablet 08/08/2018 Provider: Diagnosis: prn Last Documented On 8 2:36PM By DELILAH MIN ; [facility] Vitamin D3 2000UNIT Oral Capsule 08/08/2018 Provider : Diagnosis: one a day Last Documented On 8 2:37PM By DELILAH MIN ; [facility] Tylenol Extra Strength 500 MG OR TABS 04/10/2014 Pro vider: Diagnosis: Last Documented On 4 10:01AM By SARAH PANCHAL LPN ; [facility] hydroCHLOROthiazide 12.5 MG TABS 04/10/2014 Provider : Diagnosis: Last Documented On 4 9:57AM By SARAH PANCHAL LPN ; [facility] Past Medications on file Nitrofurantoin Monohyd Macro 100 MG Oral Capsule 12/19/2023 - 12/26/2023 Provider: ELADIO ADLER RN VIKTORIYA BC Diagnosis: Urinary tract infection, site not specified 1 BID ONE TAB TWICE A DAY W/FOOD Last Documented On 4 8:27AM By ELADIO FLORES- ; [facility] Medications Administered Includes: Administered Medications from this encounter No Administered Medications Recorded Vital Signs Includes: Vital Signs from this encounter Vital Name 12/13/2023 01:32P Blood Pressure Sitting L 132/80 BP Cuff Size Regular Temp-Temporal 98.1 Height (in) 60.75 Weight (lb) 198 Body Mass Index 37.7 Body Surface Area 1.9 Last Documented: On 12/13/2023 1:43PM ; [facility] Results Includes: Results discussed during this encounter No Results Recorded For Specified Dates History of Present Illness Includes: History of Present Illness from this encounter HPI - Allergy list reviewed - Medication list reviewed - Increased urinary frequency Social History No Social History Recorded - Smoking Status Unknown Procedures and Surgical History Includes: Procedures from this encounter Procedures Code Diagnosis Performing Provider Service Location Service Date urinalysis was performed unable to provide specimen [id number] Last Documented On 4 2:20PM ; [facility] Surgical History Last Updated Surgical / procedural histor y CYSTOCELE AND RECTOCELE by Dr Webb at [facility] on 08/16/2009 and then had to have the mesh released on 08/29/2009 at [facility]. Since then she has seen Dr Estela Torre at [facility]. ~TEX CARPAL TUNNEL. ~bunion surgery in [facility] Dr Mantilla ~Left ear surgery 202108/21/2022 Last Documented On 4 1:30PM ; [facility] History of total hysterectomy 08/21 Last Documented On 4 1:30PM ; [facility] History of total abdominal h ysterectomy DR. LAM in 1982 due to fibroids 02/23/2012 Last Documented On 4 1:30PM ; [facility] Dilation + Curettage 02/22/2012 Last Documented On 4 1:30PM ; [facility] Tonsillectomy 02/22/2012 Last Documented On 4 1:30PM ; [facility] History of hysterectomy 02/22/2012 Last Documented On 4 1:30PM ; [facility] Medical History Includes: Medical History addressed during this encounter Description Last Updated History of a DXA of the lateral lumbar s pine was performed 08/15/2018 12/13/2023 Last Documented On 4 2:41PM ; [facility] History of screening mammogram was perfo rmed 10/06/2022 STA 12/13/2023 Last Documented On 4 2:41PM ; [facility] Last mammogram date: 10/06/2022 12/13/19 Last Documented On 4 2:41PM ; [facility] Anxiety 08/21/2022 Last Documented On 4 1:30PM ; [facility] Result: normal STA 08/21/2022 Last Documented On 4 1:30PM ; [facility] History of colonoscopy fiberoptic was pe rformed 05/07/2014 08/21/2022 Last Documented On 4 1:30PM ; [facility] Primary Care Provider: Dr. Bonnie Bronson retired 08/21/2022 Last Documented On 4 1:30PM ; [facility] A colonoscopy was performed 05/07/14 STA 12/02/2020 Last Documented On 4 1:30PM ; [facility] Patient recently had a dexa scan [facility] 12/02/2020 Last Documented On 4 1:30PM ; [facility] Last pap smear date 04/10/2014 12/02/2020 Last Documented On 4 1:30PM ; [facility] LMP: 198212/02/2020 Last Documented On 4 1:30PM ; [facility] GLUTEN FREE-- avoiding Wheat , Dairy, and Potato per her report. ~Pt states has mild fibromyalgia dx'd in 2017: itching, neuropathy, carpal tunnnel again bilaterally, achiness, insomnia 08/08/2018 Last Documented On 4 1:30PM ; [facility] Not sexually active 08/08/2018 Last Documented On 4 1:30PM ; [facility] Vaginal delivery 07/03/2016 Last Documented On 4 1:30PM ; [facility] History of osteopenia 04/10/2014 Last Documented On 4 1:30PM ; [facility] History of chronic reflux esophagitis Last Documented On 4 1:30PM ; [facility] Recent change in medical his tory asthma on inhalers ~EGD 04/03/14 Dr Craig gastritis, ulcer, Pancho's, and hiatal hernia. Had CT with contrast 04/09/14 04/10/2014 Last Documented On 4 1:30PM ; [facility] Aborta 1 02/22/2012 Last Documented On 4 1:30PM ; [facility] 3 02/22/2012 Last Documented On 4 1:30PM ; [facility] Para 2 02/22/2012 Last Documented On 4 1:30PM ; [facility] History of urinary tract infection 02/21 Last Documented On 4 1:30PM ; [facility] Result: normal AND HPV NEGATIVE 02/22/20 Last Documented On 4 1:30PM ; [facility] Family History Includes: Family History addressed during this encounter Description Last Updated Sororal history of cancer skin cancer st age 1 08/21/2022 Last Documented On 4 1:30PM ; [facility] Family history of heart disease BROTHER AND SISTERS 02/22/2012 Last Documented On 4 1:30PM ; [facility] Family history of hypercholesterolemia P ATIENT AND PARENTS 02/22/2012 Last Documented On 4 1:30PM ; [facility] Family history of hypertension PATIENT A ND FAMILY HX OF 02/22/2012 Last Documented On 4 1:30PM ; [facility] Review of Systems Includes: Review of Systems from this encounter Systemic: No fever and no chills. Cardiovascular: No chest pain or discomfort. Pulmonary: No dyspnea. Gastrointestinal: No nausea and no vomiting. Genitourinary: No hematuria. Increased urinary frequency. No dysuria. Mental Status Includes: Mental Status from this encounter Description Anxiety Functional Status Includes: Functional Status from this encounter No Functional Status Recorded Physical Exam Includes: Physical Exam from this encounter Allergies Includes: Active Allergies Substance Type Reaction Onset Date Resolved Date Statu s WHEAT Allergy 02/22/2012 Resolved Last Documented On 6 9:52AM ; [facility] POTATO Allergy 02/22/2012 Resolved Last Documented On 6 9:52AM ; [facility] Morphine Sulfate ER Allergy Nausea, Vomiting 08/21/2022 Active Last Documented On 4 1:41PM ; [facility] Macrolides and Ketolides Allergy Nausea 08/08/2018 Active Last Documented On 4 1:41PM ; [facility] Levaquin Allergy 08/08/2018 Active Last Documented On 4 1:41PM ; [facility] Note: tendonitis from taking per pt GLUTEN Allergy 02/22/2012 Resolved Last Documented On 6 9:52AM ; [facility] DAIRY Allergy 02/22/2012 Resolved Last Documented On 6 9:52AM ; [facility] Cipro Allergy 08/08/2018 Active Last Documented On 4 1:41PM ; [facility] Note: tendonitis from it Encounters Encounter Provider Location Date Check-In Time Check-Out Time Diagnosis PROBLEM VISIT ELADIO ADLER RN VIKTORIYA [facility] 12/13/19 24 1:30PM 2:21PM Cystocele,Urge Incontinence of Urine Insurance Includes: Active Insurance Policies Plan Name Member ID Group # Subscriber Relationship Effect jerry Dates 1 - MEDICARE PART A CLAIMS/NGS [id number] [employer] Self 2 - [facility] [id number] [employer] Self Clinical Notes Includes: Clinical Notes from this encounter * Progress note Date Encounter Last Documented by 12/13/2023 PROBLEM VISIT Last documented on 12/13/2023; 2:41 PM, ELADIO ADLER RN VIKTORIYA ; [facility] Active Problems & Conditions - N60.19 - Breast Fibrocystic Disease - N81.10 - Cystocele - 733.90 - History of Osteopenia - V45.77 - History of Total Abdominal Hysterectomy - DR. LAM in 1982 due to fibroids - N39.41 - Urge Incontinence of Urine Chief Complaint The Chief Complaint is: Pt complains of a possible prolapse. Pt has been seen twice for a UTI, also had MRI and x-ray. History of Present Illness - Allergy list reviewed - Medication list reviewed - Increased urinary frequency Current Medication - Amitriptyline HCl 25 MG [...] Tablet 0 days, 0 refills - Ipratropium [place] 0.03% Nasal Solution 0 days, 0 refills [...] CYSTOCELE AND RECTOCELE by Dr Webb at [facility] on 08/16/2009 and then had to have the mesh released on 08/29/2009 at [facility]. Since then she has seen Dr Estela Torre at [facility]. TEX CARPAL TUNNEL. bunion surgery in [facility] Dr Mantilla Left ear surgery 2021. Tonsillectomy and Dilation + Curettage. Tests: A colonoscopy was performed 05/07/14 STA and patient recently had a dexa scan 08/15/2018 [facility]. : 3, para 2, aborta 1, and [...] PARENTS Sororal: Cancer skin cancer stage 1 Review Of Systems Systemic: No fever and no chills. Cardiovascular: No chest pain or discomfort. Pulmonary: No dyspnea. Gastrointestinal: No nausea and no vomiting. Genitourinary: No hematuria. Increased urinary frequency. No dysuria. Physical Findings - Vitals taken 12/13/2023 01:32 pm BP-Sitting L 132/80 mmHg BP Cuff Size Regular Temp-Temporal 98.1 F Height 60.75 in Weight 198 lbs Body Mass Index 37.7 kg/m2 Body Surface Area 1.9 m2 General: - Physical examination. Genitalia: External: - Genitalia showed no abnormalities. Pelvic: - No ovarian mass. Vagina: - A cystocele was observed grade 2 at rest, grade 3 with cough. - No vaginal discharge was observed. - Not tender. - No rectocele was observed. Cervix: - Absent. Uterine Adnexae: - Uterine adnexa was not tender. Tests Urinalysis Was Performed: Urinalysis was performed unable to provide specimen. Assessment - [N81.10 - Cystocele, unspecified] Cystocele - [N39.41 - Urge incontinence] Urge incontinence of urine Counseling/Education - Return to the clinic if condition worsens or new symptoms arise - Patient counseling:unable to void today, will send order to [facility] for urine culture Pt has hx. of previous cystocele repair x 2, and declines PT or pessary device. Pt. desires referral to Uro Motion Picture Equipment Machinist d/t past surgical history, and will be informed of urine results for plan of care Plan StartCited - Cystocele, unspecified Referral: Urologist Instructions: grade 2 cycstocele at rest, grade 3 w/cough, hx. of cystocele/rectocele repair 2008 [facility] EndCited StartCited - Other PHY ORDER/COMMENT release for 2009 cyctocele/rectocele repairs at [facility] thanks EndCited StartCited - Urge incontinence Lab: CULTURE, URINE, ROUTINE EndCited Health Reminders - Assess BMI satisfied 12/13/2023. - Mammogram satisfied 10/06/2022.
--- OUTSIDE RECORDS SUMMARY | 2025-02-16 15:25 | XMS_ITS | Clinical Summary ---
Author Organization [facility] Address [address] [place] [address] Care Team Providers Care It Risk Analyst Name Role Phone Caryl Arevalo MD Unavailable [phone] Bonnie Jolley MD Primary Care Provider [phone] Allergies Active Allergy Reactions Criticality Noted Date Comments Ciprofloxacin Other (see comment) Medium 07/19/2018 got tendenitis in ankle per patient Erythromycin Nausea Only,Vomiting 09/01/2021 Fluocinolone Other (see comment) 03/23/2017 PT STATES DOCTOR DOES NOT WANT HER TO TAKE, developed tendonitis Levofloxacin Nausea Only 03/26/2017 Developed tendonitis Morphine Nausea Only,Vomiting 09/01/2021 Moxifloxacin Hcl In Nacl Nausea Only 03/26/2017 Medications albuterol sulfate HFA 108 (90 Base) MCG/ACT inhaler 2 Puffs 4 times daily as needed. Reported on 12/10/2016 Active amitriptyline 25 MG tablet Take 25 mg by mouth nightly at bedtime. 09/05/2019 Active cholecalciferol (VITAMIN D-[address]) 25 MCG (1000 UT) Tab tablet Take 1,000 Units by mouth daily. Active DULoxetine 20 MG capsule Take 20 mg by mouth daily. 05/29/2019 Active hydroCHLOROthia zide 12.5 MG capsule Take 25 mg by mouth daily. 06/26/2019 Active losartan 100 MG tablet TAKE 1 TABLET BY MOUTH EVERY DAY 06/19/2019 Active rosuvastatin 10 MG tablet TAKE 1 TABLET BY MOUTH DAILY 06/19/2019 Active traMADol 50 MG tablet Take 50 mg by mouth every 4 (four) hours as needed for Pain. 08/21/2021 Active pantoprazole EC 40 MG tablet Take 40 mg by mouth daily. Active diphenhydrAMINE -PE-APAP (EQ SEVERE ALLERGY & SINUS OR) Take 1 tablet by mouth daily. Active olopatadine 0.2 % Solution Place 1 drop into both eyes daily. Active calcium carbonate 1500 (600 Ca) MG tablet Take 1,500 mg by mouth daily. Active PAPAYA ENZYME OR Take 1 tablet by mouth daily. Active wheat dextrin Tab tablet Take 1 tablet by mouth daily. Active Probiotic Product (ALIGN OR) Take 1 tablet by mouth daily. Active fluticasone propionate 50 MCG/ACT nasal spray 1 spray by Nasal route daily. Active Ascorbic Acid (VITAMIN C) 100 MG tablet Take 500 mg by mouth daily. Active dicyclomine 10 MG capsule Take 10 mg by mouth 4 (four) times daily as needed (cramping). Active HYDROcodone-silva taminophen 5-325 MG tabletIndicatio ns:Acute Pain < 7 Day Supply Take 1 tablet by mouth every 6 (six) hours as needed for Pain. Indications: Acute Pain < 7 Day Supply 20 tablet 09/05/2021 Active ibuprofen 800 MG tablet Take 1 tablet (800 mg total) by mouth every 8 (eight) hours as needed for Pain. 30 tablet 09/05/2021 Active Active Problems No known active problems Family History Medical History Relation Comments Hypertension Brother Lupus Daughter Heart Disease Father Heart Disease Mother Stroke Mother Hypertension Sister No Known Problems Son Relation Status Comments Brother Alive Daughter Alive Father Mother Sister Alive Son Alive Social History Tobacco Use Types Packs/Day Years Used Date Smoking Tobacco: Never Smokeless Tobacco: Never Alcohol Use Standard Drinks/Week Comments Not Currently 0 (1 standard drink = 0.6 oz pur e alcohol) rare Comments No Sex and Gender Information Value Date Recorded Sex Assigned at Not on file Legal Sex Female 7:09 PM CDT Gender Identity Not on file Sexual Orientation Not on file Last Filed Vital Signs Vital Sign Reading Time Taken Comments Blood Pressure 161/68 09/05/2021 12:55 PM CDT Pulse 65 09/05/2021 12:55 PM CDT Temperature 36.4 C (97.5 F) 09/05/2021 12:55 PM CDT Respiratory Rate 18 09/05/2021 12:5 5 PM CDT Oxygen Saturation 99% 09/05/2021 12: 55 PM CDT Inhaled Oxygen Concentration - - Weight 86.5 kg (190 lb 11.2 oz) 09/05/2021 8:30 AM CDT Height 154.9 cm (5' 1 ) 09/05/2021 8:30 AM CDT Body Mass Index 36.03 09/05/2021 8:30 AM CDT Plan of Treatment Health Maintenance Due Date Last Done Comments Hepatitis C 1966 Zoster Vaccines (1 of 2) 1998 Annual Medicare Wellness Visit 2013 Dexa Scan (General) 2013 RSV Immunization or 60+ Years (1 - 1-dose 75+ series) 2023 DTaP, Tdap and Td Vaccines ( 2 - Td or Tdap) 11/08/2023 11/08/2013 COVID-19 Vaccine (4 - 2023-2 5 season) 2024 08/08/2021, 01/08/2021, 12/11/2020 Pneumococcal Vaccine: 65+ Years Completed 09/05/2019, 03/17/2016, 11/08/2008 Meningococcal B Vaccine Aged Out No l onger eligible based on patient's age to complete this topic Meningococcal Vaccine Aged Out No jamil betty eligible based on patient's age to complete this topic RSV Immunizations Under 20 Months Aged Out No longer eligible b ased on patient's age to complete this topic Medical Devices Implanted Type Area Vp Packaging Device Identifier Shelf Expiration Date Model / Serial / Lot K-Wire Implanted:Qty : 1 on 09/05/2021 by Kan Mantilla DPM at [facility] Right: Toe [employer] [id number] 02/07/2025 [id number] / / [id number] Description:[employer]-W[employer] Insurance MEDICARE BLUE CROSS BLUE [facility] Care Teams It Risk Analyst Relationship Specialty [place] [address] [place] [address] PCP - General FAMILY PRACTICE 09/01/21 [place] [id number] [place] [address] CARDIOVASCULAR DISEASE 09/01/21
--- OUTSIDE RECORDS SUMMARY | 2025-02-16 15:25 | XMS_ITS | CONTINUITY OF CARE DOCUMENT ---
Author Name jason gomez Address Unknown Organization [facility] Address [address] [place] [address] Phone [phone] Care Team Providers Care Electrical Repairer Name Role Phone Mickey RIDLEY, Caryl Unavailable CARI HORSE BREAKER, SON Moore Unavailable Samreen Ridley, Bonnie Unavailable PROBLEMS Condition Status Date Provider Notes AV paroxysmal tachycardia (PSVT) active Negro Arevalo MD Osteoporosis active Caryl Arevalo MD Peptic ulcer disease active Caryl Arevalo MD GERD active Caryl Arevalo MD Fibromyalgia active Caryl Arevalo MD ARTHRITIS active Caryl Arevalo MD Asthma active Caryl Arevalo MD Family History of Hypertension: active Ojas vi Lynette Palpitations active Ojasvi Lynette HTN, unspecified active Ojasvi Lynette Chest pain nl stress test , ca score zero 04/2021 active Caryl Arevalo MD Hypercholesterolemia active Oslime Ojeda SHORTNESS OF BREATH nl echo and stress test 04/2021 active Caryl Arevalo MD Dizziness active Mayur Barragan ENCOUNTERS Date Type Provider Location Encounter Diag nosis - In-person encounter Office Visit Caryl Arevalo MD [facility] - In-person encounter Office Visit Caryl Arevalo MD [facility] Dizziness - In-person encounter Office Visit Caryl Arevalo MD [facility] Chest pain nl stress test , ca score zero HORTNESS OF BREATH nl echo and stress test 04/2021 - In-person encounter Office Visit Caryl Arevalo MD [facility] Family History of Hypertension:Palpitation sHTN, unspecifiedChest pain nl stress test , ca score zero 04/2021Hypercholesterolem iaSHORTNESS OF BREATH nl echo and stress test 04/2021 VITAL SIGNS Date Observation Value Provider Body Mass Index (Ratio) 36.27 kg/m2 Kranthi Arevalo MD blood pressure, diastolic 80 mm[Hg] Maria Teresa Cornell blood pressure, systolic 144 mm[Hg] Wali Cornell blood pressure, cuff size regular Maria Teresa Cornell oxygen saturation, oximetry 96 % Los Cornell pulse rate 75 /min Los Cornell weight E&M 192 [lb_av] Los Cornell height E&M 61 [in_i] Los Cornell Body Mass Index (Ratio) 35.90 kg/m2 Kranthi Arevalo MD blood pressure, diastolic 74 mm[Hg] Treasure Tian blood pressure, systolic 134 mm[Hg] Sofia Tian oxygen saturation, oximetry 93 % Meera Tian pulse rate 73 /min Meera Tian respiratory rate E&M 12 /min Meera Tian weight E&M 190 [lb_av] Meera Tian height E&M 61 [in_i] Meera Tian blood pressure, cuff size small Treasure Tian Body Mass Index (Ratio) 35.90 kg/m2 Kranthi Arevalo MD blood pressure, cuff size regular Cy yumiko Morales blood pressure, diastolic 80 mm[Hg] Cy yumiko Morales blood pressure, systolic 140 mm[Hg] Leonila Morales oxygen saturation, oximetry 95 % Kim Morales respiratory rate E&M 16 /min Kim Morales pulse rate 79 /min Kim block weight E&M 190 [lb_av] Kim Calderon l height E&M 61 [in_i] Kim block Body Mass Index (Ratio) 36.09 kg/m2 Kranthi Arevalo MD blood pressure, resting No Gerard V[place]ford blood pressure, diastolic 72 mm[Hg] Sh stephanie [place] blood pressure, systolic 130 mm[Hg] She miracle Saurav respiratory rate E&M 18 /min Jasper [place] oxygen saturation, oximetry 99 % Tori Mg pulse rate 66 /min Tori foley weight E&M 191 [lb_av] Tori foley height E&M 61 [in_i] Tori foley ALLERGIES Allergy Name Onset Date Reaction Criticality Status MORPHINE High Criticality active ERYTHROMYCIN High Criticality active LEVOFLOXACIN High Criticality active CIPROFLOXACIN High Criticality activ e HISTORY OF MEDICATION USE Medication Status Instructions Dates Provider Indications Com ments hydrochlorothiazide 25 mg tablet active Meera Tian dicyclomine 10 mg capsule active Meera Tian famotidine 40 mg tablet active Meera Tian estradiol 0.01% (0.1 mg/gram) cream active Meera Tian HUMULIN N KWIKPEN 100 UNIT/ML SUBCUTANEOUS SUSPENSION PEN-INJECTOR completed - Ojasvi Lynette PROAIR DIGIHALER 108 MCG/ACT INHALATION AEROSOL POWDER BREATH ACTIVATED active Mayur Barragan Cymbalta 20 mg capsule,delayed release(DR/EC) active Mayur Barragan meloxicam 7.5 mg tablet active Mayur Barragan #30, 30 days supply, Prescribed by BHAVANA BELLO, Filled 02/10/2021 amitriptyline 25 mg tablet active Take 1 tablet by mouth every night Mayur Barragan #90, 90 days supply, Prescribed by BONNIE WEAVER, Filled 02/18/2021 pantoprazole 40 mg tablet,delayed release (DR/EC) active Take 1 tablet by mouth once a day Mayur Barragan #90, 90 days supply, Prescribed by BONNIE WEAVER, Filled 02/20/2021 PREDNISONE 10 MG ORAL TABLET completed - Caryl Arevalo MD #20, 25 days supply, Prescribed by BHAVANA BELLO, Filled 03/17/2021 rosuvastatin 10 mg tablet active Take 1 tablet by mouth once a day Mayur Barragan #90, 90 days supply, Prescribed by BONNIE WEAVER, Filled 04/12/2021 losartan 100 mg tablet active Take 1 tablet by mouth once a day Mayur Barragan #90, 90 days supply, Prescribed by BONNIE WEAVER, Filled 04/12/2021 SOCIAL HISTORY Date Observation Value Provider smoking status Never smoker Mayur Barragan smoking status Never smoker Mayur Barragan social history E&M S moking History: Beto ventura has never smoked. Caryl Arevalo MD social history reviewed E&M revi ewed - no changes required Caryl Arevalo MD smoking status Never smoker Kim contreras social history reviewed E&M revi ewed - no changes required Savi Ojeda social history E&M S moking History: Beto ventura has never smoked. Savi Ojeda number of grandchildren Caryl Ojeda smoking status Never smoker Tori pitt FAMILY HISTORY Family Member Condition Father Family History of Mccurdy dden Cardiac : Mother Family History of Hy pertension: Mother Family History of Hy pertension: Mother Family History of Hy pertension: INSURANCE PROVIDERS Payer name Policy type / Coverage type [place] red libertarian ID [facility] [id number] [place] Medicare [id number] ADVANCE DIRECTIVES Name Date DISCUSSED - NO DECISION MADE TREATMENT PLAN Date Name Performer [id number], Caryl Arevalo MD [id number],S, Caryl Arevalo MD [id number],B, Caryl Arevalo MD [id number],B, Caryl Arevalo MD [id number],B, Caryl Arevalo MD [id number],B, Caryl Arevalo MD [id number],S, Caryl Arevalo MD Cardiology Caryl Arevalo MD Cardiology Caryl Arevalo MD Cardiology Caryl Arevalo MD Cardiology Caryl Arevalo MD Cardiology: O rders: L IPID PANEL (2800) T SH, free T4, total T3 (7444) Caryl Arevalo MD Cardiology: B P today: 134/74 P rior BP: 140/80 (05/20/2021) Her updated medication list for this problem includes: Losartan 100 Mg Tablet (Losartan) ..... Take 1 tablet by mouth once a day Hydrochlorothiazide 25 Mg Tablet (Hydrochlorothiazide) Orders: L IPID PANEL (4390) T SH, free T4, total T3 (7444) Caryl Arevalo MD Cardiology: O rders: L IPID PANEL (7600) T SH, free T4, total T3 (7444) Caryl Arevalo MD Cardiology: H er updated medication list for this problem includes: Rosuvastatin 10 Mg Tablet (Rosuvastatin) ..... Take 1 tablet by mouth once a day Orders: L IPID PANEL (7600) T SH, free T4, total T3 (7444) Caryl Arevalo MD Cardiology: H er updated medication list for this problem includes: Losartan 100 Mg Tablet (Losartan) ..... Take 1 tablet by mouth once a day Hydrochlorothiazide 25 Mg Tablet (Hydrochlorothiazide) Orders: L IPID PANEL (7600) T SH, free T4, total T3 (7444) Caryl Arevalo MD Cardiology: O rders: C arotid Duplex Bilateral (CPT-16028) L IPID PANEL (7600) T SH, free T4, total T3 (7444) M onitor - Telemetry (Mobile Cardiac) (CPT-57266) Caryl Arevalo MD Cardiology follow up Caryl muñoz MD Cardiology follow up Caryl muñoz MD Cardiology follow up Caryl muñoz MD Cardiology follow up Caryl muñoz MD Cardiology follow up Caryl muñoz MD Cardiology follow up Caryl muñoz MD Cardiology follow up Crayl muñoz MD Cardiology Savi Ojeda Cardiology Savi Ojeda Cardiology Savi Ojeda Cardiology Savi Ojeda Cardiology Savi Ojeda Cardiology: B P today: 130/72 Savi Ojeda Cardiology:She feels fluttering but no heart racing. Savi Ojeda Date Name Monitor - Telemetry (Mobile Cardiac) TSH, free T4, total T3 LIPID PANEL Carotid Duplex Bilat eral Complete Echo CT, Coronary Calcium Score Stress Regadenoson HISTORY OF PROCEDURES Procedure Date Procedure Name Provider Procedure Notes S tatus Complex e/m visit add on Caryl Arevalo MD completed CT- Coronary CA score Caryl Arevalo MD completed EKG Caryl Arevalo MD completed
--- OUTSIDE RECORDS SUMMARY | 2025-02-16 15:25 | XMS_ITS | Continuity of Care Document ---
Author Organization [facility] Address [address] [place] [address] Phone Care Team Providers Care Bone Char Kiln Tender Name Role Phone Frank Stringer MD Unavailable Unavailable Medications Medication Instructions Dosage Effective Dates (start - stop) Status Comments FLUTICASONE PROP 50 MCG SPRAY 2 QD - Active ASTEPRO 0.15% NASAL SPRAY 1 BID - Active NASONEX 50 MCG NASAL SPRAY 2 QD-daily - No Longer Active NASONEX 50 MCG NASAL SPRAY 1 QD-daily - No Longer Active Advance Directives Directive Yes / No Effective Date File Name No Information Encounters Encounter Description Practice Location Reason(s) For Visit Diagnoses Date Provider Providers Copied on Encounter [facility], [address], [place], [place], [id number], [phone] [facility] No Information Myke Marie. [address] [place] [address], [id number] , . tel: [phone] [facility], [address], [place], [id number], tel:[phone] [facility] COUGHCHRONIC RHINITISNASAL & SINUS DIS NECINTRINSIC ASTHMA NOSESOPHAGEAL REFLUX 0 Myke Marie. [address] [place] [address], [id number] , . tel: [phone] Family History Family Member Type Diagnosis Age At Onset No Information Payers Payer name Insurance type Covered green party ID Authoriza tion(s) No Information Social History Type Description Quantity Date Captured Comments Sex Female Smoking Status No Information Chief Complaint And Reason For Visit No Information Reason For Referral Reason For Referral No Information History Of Present Illness Encounter Date Complaint History Of Prese nt Illness No Information Functional Status Date Functional Assessmen t No Information Medications Administered Medication Instructions Dosage Effective Dates (start - stop) Status Comments NASONEX 50 MCG NASAL SPRAY 1 QD-daily - No Longer Active Instructions Date Instruction Additional Infor mation No Information Assessments Type Assessment Date No Information Patient Care Teams Name Effective Dates (start - stop) Status Members No Information
--- OUTSIDE RECORDS SUMMARY | 2025-02-16 15:25 | XMS_ITS | Encounter Summary ---
Author Organization [facility] Address [address] [facility] [place] [address] Phone Care Team Providers Care Development And Planning Engineer Name Role Phone Max Cervantes MD Primary Care Provider [phone] Jory Paz APRN, CNP Primary Care Provid er Encounter Details Date Type Department Care Team (Latest Contact Info) Description 09/16/2020 [facility] Ad[facility] [address] [place] [address] Mimi Caballero MD [address] [place] [address] Vitamin D deficiency disease (Primary Dx); Lupus (HCC); Neuropathy; Fatigue due to depression; Arthritis; Myalgia; Hypomagnesemia; Diabetes mellitus screening; Vitamin B12 deficiency disease; Encounter for therapeutic drug monitoring Social History Tobacco Use Types Packs/Day Years [...] CDT Gender Identity Female 09/27/2023 8:13 PM DIRECTOR OF INSTITUTIONAL SALES Sexual Orientation Straight 09/27/2023 8: 13 PM DIRECTOR OF INSTITUTIONAL SALES 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 Not on file Not on file Not on file COVID-19 Exposure Response Date Recorded In the last month, have you been in contact with someone who was confirmed or suspected to have Coronavirus / COVID-19? No / Unsure 09/18/2020 11:36 AM DIRECTOR OF INSTITUTIONAL SALES documented as of this encounter Plan of Treatment Upcoming Encounters Date Type Department Care Team (Late st Contact Info) Description 07/05/2025 1:30 PM CDT Office Visit [facility] - Family Medicine [facility] [address] [place] [address] Jory Paz APRN, VICE PRESIDENT OF CONTRACTS [address] [phone] documented as of this encounter Results * HEMOGLOBIN A1C W/ ESTIMATED GLUCOSE (06/24/2021 10:19 AM CDT) HGB-A1C 5.5 4.0 - 6.0 % 06/24/2021 11:15 AM CDT [facility] Est Average Glucose 111.2 mg/dL 06/24/2021 11:15 AM CDT [facility] Blood Venipuncture / Unknown 06/24/2021 10:19 AM CDT 06/24/2021 10:53 AM CDT Narrative [facility] - 06/24/2021 11:15 AM CDT HEMOGLOBIN A1C: DIABETIC PATIENTS: WELL-CONTROLLED: 6.2 - 7.0 INTERMEDIATE WELL-CONTROLLED: 7.0 - 9.0 POORLY-CONTROLLED: >9.0 us Mimi Caballero MD CHEMISTRY ORDERABLES Final Resul t [facility] [address] [facility] [place] [address] * MISCELLANEOUS TEST (COVE) (09/16/2020 12:09 PM DIRECTOR OF INSTITUTIONAL SALES) RESULT SEE NOTE 09/21/2020 02:30 AM 09/21/2020 2:24 AM [facility] Blood Venipuncture / Unknown 09/16/2020 12:09 PM DIRECTOR OF INSTITUTIONAL SALES 09/16/2020 12:52 PM [facility] - 09/21/2020 2:24 AM [facility] Test Result Flag Unit RefValue 14-3-3 eta Protein <0.2 ng/mL <0.2 The 14-3-3eta protein is a marker of synovial inflammation that is released into synovial fluid and peripheral blood in rheumatoid arthritis (RA) and erosive psoriatic arthritis. One in five RF and CCP seronegative early stage RA patients is found to be positive for 14-3-3eta protein. Patients with active joint RA disease have higher values of 14-3-3eta protein than those with inactive RA or psoriasis without arthritis. 14-3-3eta protein has a 93% specificity in patients with RA. Values > or = 0.2 ng/mL are elevated and indicative of RA disease or erosive psoriatic arthritis. Values >0.50 ng/mL are associated with more aggressive RA disease and poorer outcomes. Unlike RF and CCP, 14-3-3eta protein is a therapeutically modifiable marker to monitor response to therapy. A decrease in 14-3-3eta protein in response to DMARDs (disease-modifying antirheumatic drugs) and anti-TNF (tumor necrosis factor) drugs indicates better clinical outcomes; an increase is associated with worse outcomes despite apparent clinical remission. For further information please visit: [email or web address].[email or web address] This test was developed and its analytical performance characteristics have been determined by [facility]. It has not been cleared or approved by FDA. This assay has been validated pursuant to the CLIA regulations and is used for clinical purposes. Test Performed by: [employer] [id number] [place] [address] us Mimi Caballero MD LAB SEND OUTS Final Result [facility] [address] [place] [address], [place] * ANTI CARDIOLIPIN IGG, IGM & IGA (09/16/2020 12:03 PM DIRECTOR OF INSTITUTIONAL SALES) CARDIOLIPIN IGA <0.5 <20.0 APL-U/mL 09/17/2020 11:03 AM DIRECTOR OF INSTITUTIONAL SALES [facility] CARDIOLIPIN IGG <1.6 <20.0 GPL-U/mL 09/17/2020 11:03 AM DIRECTOR OF INSTITUTIONAL SALES [facility] CARDIOLIPIN IGM 5.6 <20.0 MPL-U/mL 09/17/2020 11:03 AM DIRECTOR OF INSTITUTIONAL SALES [facility] Blood Venipuncture / Unknown 09/16/2020 12:03 PM DIRECTOR OF INSTITUTIONAL SALES 09/16/2020 12:53 PM DIRECTOR OF INSTITUTIONAL SALES Narrative [facility] - 09/17/2020 11:03 AM DIRECTOR OF INSTITUTIONAL SALES Antibody testing was performed by multiplex flow immunoassay on the BioPlex platform. us Mimi Caballero MD IMMUNOLOGY ORDERABLES Final Resu lt Performing Organization Address City/[facility]/ZIP Co de Phone Number [facility] [address] [place] [address], [place] * SCLERODERMA (SCL 70) (09/16/2020 12:03 PM DIRECTOR OF INSTITUTIONAL SALES) SCL-70 <0.2 <1.0 AI 09/17/2020 11:01 AM DIRECTOR OF INSTITUTIONAL SALES [facility] Blood Venipuncture / Unknown 09/16/2020 12:03 PM DIRECTOR OF INSTITUTIONAL SALES 09/16/2020 12:53 PM DIRECTOR OF INSTITUTIONAL SALES Narrative [facility] - 09/17/2020 11:01 AM DIRECTOR OF INSTITUTIONAL SALES Antibody testing was performed by multiplex flow immunoassay on the BioPlex platform. us Mimi Caballero MD IMMUNOLOGY ORDERABLES Final Resu lt [facility] [address] [place] [address], [place] * SJOGRENS PANEL, SSA & SSB (09/16/2020 12:03 PM DIRECTOR OF INSTITUTIONAL SALES) SS-A <0.2 <1.0 AI 09/17/2020 11:01 AM DIRECTOR OF INSTITUTIONAL SALES [facility] SS-B <0.2 <1.0 AI 09/17/2020 11:01 AM DIRECTOR OF INSTITUTIONAL SALES [facility] Blood Venipuncture / Unknown 09/16/2020 12:03 PM DIRECTOR OF INSTITUTIONAL SALES 09/16/2020 12:53 PM DIRECTOR OF INSTITUTIONAL SALES Narrative [facility] - 09/17/2020 11:01 AM DIRECTOR OF INSTITUTIONAL SALES Antibody testing was performed by multiplex flow immunoassay on the BioPlex platform. Mimi Caballero MD IMMUNOLOGY ORDERABLES Final Resu lt [facility] [address] [place] [address], [place] * BUTTON BREAKER OPERATOR AB (09/16/2020 12:03 PM DIRECTOR OF INSTITUTIONAL SALES) BUTTON BREAKER OPERATOR AB <0.2 <1.0 AI 09/17/2020 11:01 AM DIRECTOR OF INSTITUTIONAL SALES [facility] Blood Venipuncture / Unknown 09/16/2020 12:03 PM DIRECTOR OF INSTITUTIONAL SALES 09/16/2020 12:53 PM DIRECTOR OF INSTITUTIONAL SALES Narrative [facility] - 09/17/2020 11:01 AM DIRECTOR OF INSTITUTIONAL SALES Antibody testing was performed by multiplex flow immunoassay on the BioPlex platform. us Mimi Caballero MD IMMUNOLOGY ORDERABLES Final Resu lt [facility] [address] [place] [address], [place] * FINLEY ANTIBODY PANEL (09/16/2020 12:03 PM DIRECTOR OF INSTITUTIONAL SALES) SM ANTIBODY <0.2 <1.0 AI 09/17/2020 11:01 AM DIRECTOR OF INSTITUTIONAL SALES [facility] Blood Venipuncture / Unknown 09/16/2020 12:03 PM DIRECTOR OF INSTITUTIONAL SALES 09/16/2020 12:53 PM DIRECTOR OF INSTITUTIONAL SALES Narrative [facility] - 09/17/2020 11:01 AM DIRECTOR OF INSTITUTIONAL SALES Antibody testing was performed by multiplex flow immunoassay on the BioPlex platform. us Mimi Caballero MD IMMUNOLOGY ORDERABLES Final Resu lt Performing Organization Address City/[facility]/ZIP Co de Phone Number [facility] [address] [place] [address], [place] * ANTI DOUBLE STRAND DNA (DS DNA) ANTIBODY (09/16/2020 12:03 PM DIRECTOR OF INSTITUTIONAL SALES) DNA AB, DOUBLE STRAND 3 <5 IU/mL 09/17/2020 11:01 AM DIRECTOR OF INSTITUTIONAL SALES [facility] Blood Venipuncture / Unknown 09/16/2020 12:03 PM DIRECTOR OF INSTITUTIONAL SALES 09/16/2020 12:53 PM DIRECTOR OF INSTITUTIONAL SALES Narrative [facility] - 09/17/2020 11:01 AM DIRECTOR OF INSTITUTIONAL SALES <= 4 Negative 5-9 Indeterminate >= 10 Positive Antibody testing was performed by multiplex flow immunoassay on the BioPlex platform. us Mimi Caballero MD IMMUNOLOGY ORDERABLES Final Resu lt Performing Organization Address City/[facility]/ZIP Co de Phone Number [facility] [address] [place] [address], [place] * MAGNESIUM (MG) (09/16/2020 12:03 PM DIRECTOR OF INSTITUTIONAL SALES) [facility] MAGNESIUM 2.0 1.8 - 2.5 mg/dL 09/16/2020 2:19 PM DIRECTOR OF INSTITUTIONAL SALES [facility] Blood Venipuncture / Unknown 09/16/2020 12:03 PM DIRECTOR OF INSTITUTIONAL SALES 09/16/2020 12:54 PM DIRECTOR OF INSTITUTIONAL SALES us Mimi Caballero MD CHEMISTRY ORDERABLES Final Resul t Performing Organization Address City/[facility]/ZIP Co de Phone Number [facility] [address] [place] [address] * C-REACTIVE PROTEIN (CRP) QUANT (09/16/2020 12:03 PM DIRECTOR OF INSTITUTIONAL SALES) C-REACTIVE PROTEIN 0.09 <0.50 mg/dL 09/16/2020 2:19 PM DIRECTOR OF INSTITUTIONAL SALES [facility] Blood Venipuncture / Unknown 09/16/2020 12:03 PM DIRECTOR OF INSTITUTIONAL SALES 09/16/2020 12:54 PM DIRECTOR OF INSTITUTIONAL SALES us Mimi Caballero MD CHEMISTRY ORDERABLES Final Resul t [facility] [address] [place] [address] * URIC ACID (BLOOD ASSAY) (09/16/2020 12:03 PM DIRECTOR OF INSTITUTIONAL SALES) [facility] URIC ACID 5.1 2.4 - 5.7 mg/dL 09/16/2020 2:19 PM DIRECTOR OF INSTITUTIONAL SALES [facility] Blood Venipuncture / Unknown 09/16/2020 12:03 PM DIRECTOR OF INSTITUTIONAL SALES 09/16/2020 12:54 PM DIRECTOR OF INSTITUTIONAL SALES us Mimi Caballero MD CHEMISTRY ORDERABLES Final Resul t Performing Organization Address City/[facility]/ZIP Co de Phone Number [facility] [address] [place] [address] * THYROXINE (T4) FREE (09/16/2020 12:03 PM DIRECTOR OF INSTITUTIONAL SALES) Pathologist [facility] T4 FREE 0.9 0.9 - 1.7 ng/dL 09/16/2020 2:19 PM DIRECTOR OF INSTITUTIONAL SALES [facility] Blood Venipuncture / Unknown 09/16/2020 12:03 PM DIRECTOR OF INSTITUTIONAL SALES 09/16/2020 12:54 PM DIRECTOR OF INSTITUTIONAL SALES us Mimi Caballero MD CHEMISTRY ORDERABLES Final Resul t Performing Organization Address City/[facility]/ZIP Co de Phone Number [facility] [address] [place] [address] * THYROID STIMULATING HORMONE (TSH) (09/16/2020 12:03 PM DIRECTOR OF INSTITUTIONAL SALES) TSH 1.540 0.270 - 4.200 mIU/L 09/16/2020 2:19 PM DIRECTOR OF INSTITUTIONAL SALES [facility] Blood Venipuncture / Unknown 09/16/2020 12:03 PM DIRECTOR OF INSTITUTIONAL SALES 09/16/2020 12:54 PM DIRECTOR OF INSTITUTIONAL SALES us Mimi Caballero MD CHEMISTRY ORDERABLES Final Resul t Performing Organization Address City/[facility]/ZIP Co de Phone Number [facility] [address] [place] [address] * CREATINE KINASE (CK) TOTAL (09/16/2020 12:03 PM DIRECTOR OF INSTITUTIONAL SALES) Pathologist [facility] CK (CPK) 75 26 - 192 U/L 09/16/2020 2:19 PM DIRECTOR OF INSTITUTIONAL SALES [facility] Blood Venipuncture / Unknown 09/16/2020 12:03 PM DIRECTOR OF INSTITUTIONAL SALES 09/16/2020 12:54 PM DIRECTOR OF INSTITUTIONAL SALES us Mimi Caballero MD HEMATOLOGY ORDERABLES Final Resu lt Performing Organization Address City/[facility]/ZIP Co de Phone Number [facility] [address] [place] [address] * VITAMIN D, 25 HYDROXY TOTAL (09/16/2020 12:03 PM DIRECTOR OF INSTITUTIONAL SALES) Pathologist [facility] VITAMIN D, 25 HYDROX 33 >=30 ng/mL 09/16/2020 2:19 PM DIRECTOR OF INSTITUTIONAL SALES [facility] Blood Venipuncture / Unknown 09/16/2020 12:03 PM DIRECTOR OF INSTITUTIONAL SALES 09/16/2020 12:55 PM DIRECTOR OF INSTITUTIONAL SALES Narrative [facility] - 09/16/2020 2:19 PM DIRECTOR OF INSTITUTIONAL SALES Published reference ranges for Vitamin D vary depending on time and place and method of testing, and on patient's age, sex, ethnicity and levels of other measured analytes such as parathormone, calcium and phosphorus. The result should be evaluated in conjunction with clinical findings and suspicions. [place] [employer] and [employer] Clinical Practice Guidelines: Status Vitamin D levels (ng/mL) Deficient <=20 At risk of inadequacy 21-29 Sufficient 30-100 Centers of Disease Control and Prevention Guidelines: Status Vitamin D levels (ng/mL) Deficient <13 At risk of inadequacy 13-19 Sufficient 20-50 Possibly harmful >50 References: [place] [employer] [facility], 2010 Dietary reference intakes for calcium and vitamin D. [place]: The National Academies Press. Hugo M, Kirstin N, Felipe AG, et al., Evaluation, treatment, and prevention of Vitamin D deficiency: an Endocrinology Clinical Practice Guideline. JCEM 2011 96: 7 0325-3500. Betty A, Myke C, Joe D, et al., Vitamin D Status: [place], 0918-2758, [facility] data brief, no. 59, MD Jamila: [facility] for Health Statistics. 2010. Mimi Caballero MD CHEMISTRY ORDERABLES Final Resul t Performing Organization Address [facility] [[email or web address]] de Phone Number [facility] [address] [place] [address] * RHEUMATOID FACTOR (RFQT) QUANT (09/16/2020 12:03 PM DIRECTOR OF INSTITUTIONAL SALES) RHEUMATOID FACTOR QT <=10 <14 IU/mL 09/16/2020 2:19 PM DIRECTOR OF INSTITUTIONAL SALES [facility] Blood Venipuncture / Unknown 09/16/2020 12:03 PM DIRECTOR OF INSTITUTIONAL SALES 09/16/2020 12:54 PM DIRECTOR OF INSTITUTIONAL SALES Narrative [facility] - 09/16/2020 2:19 PM DIRECTOR OF INSTITUTIONAL SALES RHEUMATOID FACTORS CAN BE FOUND IN RHEUMATOID ARTHRITIS, SYPHILIS, VIRAL INFECTIONS, LEPROSY, CHRONIC LIVER DISEASE, NEOPLASMS, AND OTHER INFLAMMATORY CONDITIONS. RF PREVALENCE ALSO INCREASES WITH AGE. THUS A POSITIVE TEST IS NOT RESTRICTED TO RA. CONVERSELY, A NEGATIVE TEST DOES NOT RULE OUT RA, RHEUMATOID FACTORS ARE NOT DETECTABLE IN 10% OF ADULTS WITH THE DISEASE. Mimi Caballero MD CHEMISTRY ORDERABLES Final Resul t Performing Organization Address [facility] [[email or web address]] de Phone Number [facility] [address] [place] [address] * ANTINUCLEAR ANTIBODY (NORBERTO), TITER IF POS (09/16/2020 12:03 PM DIRECTOR OF INSTITUTIONAL SALES) NORBERTO SCREEN Negative Negative titer 09/17/2020 10:35 AM DIRECTOR OF INSTITUTIONAL SALES [facility] Comment: Antinuclear autoantibodies not detected by IFA at a 1:80 screening dilution of HEp-2 cells. Blood Venipuncture / Unknown 09/16/2020 12:03 PM DIRECTOR OF INSTITUTIONAL SALES 09/16/2020 12:56 PM DIRECTOR OF INSTITUTIONAL SALES us Mimi Caballero MD IMMUNOLOGY ORDERABLES Final Resu lt [facility] [address] [place] [address], * FOLIC ACID (FOLATE) (09/16/2020 12:03 PM DIRECTOR OF INSTITUTIONAL SALES) FOLATE 5.5 3.1 - 17.5 ng/mL 09/16/2020 2:19 PM DIRECTOR OF INSTITUTIONAL SALES [facility] Blood Venipuncture / Unknown 09/16/2020 12:03 PM DIRECTOR OF INSTITUTIONAL SALES 09/16/2020 12:55 PM DIRECTOR OF INSTITUTIONAL SALES us Mimi Caballero MD CHEMISTRY ORDERABLES Final Resul t Performing Organization Address City/[facility]/ZIP Co de Phone Number [facility] [address] [place] [address] * VITAMIN B12 (09/16/2020 12:03 PM DIRECTOR OF INSTITUTIONAL SALES) VITAMIN B12 583 243 - 894 pg/mL 09/16/2020 2:19 PM DIRECTOR OF INSTITUTIONAL SALES [facility] Blood Venipuncture / Unknown 09/16/2020 12:03 PM DIRECTOR OF INSTITUTIONAL SALES 09/16/2020 12:54 PM DIRECTOR OF INSTITUTIONAL SALES us Mimi Caballero MD CHEMISTRY ORDERABLES Final Resul t [facility] [address] [place] [address] * (ABNORMAL) CMP (COMPREHENSIVE METABOLIC PANEL) (09/16/2020 12:03 PM [facility]) SODIUM 136 136 - 144 mmol/L 09/16/2020 2:19 PM [facility] POTASSIUM 3.8 3.5 - 5.1 mmol/L 09/16/2020 2:19 PM [facility] CHLORIDE 98(L) 100 - 110 mmol/L 09/16/2020 2:19 PM [facility] CO2, VENOUS 27 22 - 32 mmol/L 09/16/2020 2:19 PM [facility] ANION GAP 14.8 8.0 - 20.0 mmol/L 09/16/2020 2:19 PM [facility] GLUCOSE 88 70 - 99 mg/dL 09/16/2020 2:19 PM [facility] BUN 11 8 - 23 mg/dL 09/16/2020 2:19 PM [facility] CREATININE, BLOOD 0.75 0.60 - 1.10 mg/dL 09/16/2020 2:19 PM [facility] BUN/CREATININE RATIO 15 12 - 20 ratio 09/16/2020 2:19 PM [facility] TOTAL PROTEIN 6.7 6.0 - 8.3 g/dL 09/16/2020 2:19 PM [facility] ALBUMIN 4.6 3.5 - 5.2 g/dL 09/16/2020 2:19 PM [facility] Comment: The colormetric methods used for the determination of Albumin may lead to falsely elevated test results in patients suffering from renal failure or insufficiency due to interference with other proteins. A/G RATIO 2.2(H) 1.0 - 2.0 09/16/2020 2:19 PM [facility] CALCIUM 9.3 8.9 - 10.3 mg/dL 09/16/2020 2:19 PM [facility] T BILI 0.3 <=1.2 mg/dL 09/16/2020 2:19 PM [facility] SGOT (AST) 20 <=32 U/L 09/16/2020 2:19 PM DIRECTOR OF INSTITUTIONAL SALES [facility] SGPT (ALT) 16 <=33 U/L 09/16/2020 2:19 PM DIRECTOR OF INSTITUTIONAL SALES [facility] ALKALINE PHOSPHATASE 74 35 - 105 U/L 09/16/2020 2:19 PM DIRECTOR OF INSTITUTIONAL SALES [facility] GFR, EST. NONAFRICAN >60 >=60 09/16/2020 2:19 PM DIRECTOR OF INSTITUTIONAL SALES [facility] GFR, EST. >60 >=60 020 2:19 PM [facility] Comment: Creatinine Clearance is the preferred criteria for selecting drug dose adjustments in renally impaired patients. The GFR is provided as additional pertinent clinical information. GFR is reported in mL/min/1.73 sq m. Blood Venipuncture / Unknown 09/16/2020 12:03 PM DIRECTOR OF INSTITUTIONAL SALES 09/16/2020 12:54 PM DIRECTOR OF INSTITUTIONAL SALES Mimi Caballero MD CHEMISTRY ORDERABLES Final Resul t [facility] [address] [place] [address] * (ABNORMAL) COMPLETE BLOOD COUNT (CBC) WITHOUT DIFF (09/16/2020 12:03 PM DIRECTOR OF INSTITUTIONAL SALES) WBC 7.49 4.00 - 12.00 10(3)/mcL 09/16/2020 1:04 PM [facility] RBC 4.27 3.80 - 5.30 10(6)/mcL 09/16/2020 1:04 PM [facility] HEMOGLOBIN (HGB) 13.7 12.0 - 15.8 g/dL 09/16/2020 1:04 PM [facility] HEMATOCRIT (HCT) 43.5 36.0 - 47.0 % 09/16/2020 1:04 PM [facility] MCV 101.9(H) 82.0 - 96.0 fL 09/16/2020 1:04 PM [facility] MCH 32.1 26.0 - 34.0 pg 09/16/2020 1:04 PM DIRECTOR OF INSTITUTIONAL SALES [facility] MCHC 31.5 31.0 - 36.0 g/dL 09/16/2020 1:04 PM DIRECTOR OF INSTITUTIONAL SALES [facility] PLATELET COUNT 176 140 - 440 10(3)/mcL 09/16/2020 1:04 PM DIRECTOR OF INSTITUTIONAL SALES [facility] RDW 13.1 11.8 - 15.5 % 09/16/2020 1:04 PM DIRECTOR OF INSTITUTIONAL SALES [facility] MPV 11.6 9.7 - 12.4 fL 09/16/2020 1:04 PM DIRECTOR OF INSTITUTIONAL SALES [facility] Blood Venipuncture / Unknown 09/16/2020 12:03 PM DIRECTOR OF INSTITUTIONAL SALES 09/16/2020 12:56 PM DIRECTOR OF INSTITUTIONAL SALES us Mimi Caballero MD HEMATOLOGY ORDERABLES Final Resu lt [facility] [address] [place] [address] * C4 COMPLEMENT (09/16/2020 12:01 PM DIRECTOR OF INSTITUTIONAL SALES) C4 COMPLEMENT 39 15 - 57 mg/dL 09/16/2020 9:12 PM DIRECTOR OF INSTITUTIONAL SALES [facility] Blood Venipuncture / Unknown 09/16/2020 12:01 PM DIRECTOR OF INSTITUTIONAL SALES 09/16/2020 12:52 PM DIRECTOR OF INSTITUTIONAL SALES us Mimi Caballero MD CHEMISTRY ORDERABLES Final Resul t [facility] [address] [place] [address], * C3 COMPLEMENT GLOBULIN B-1C (09/16/2020 12:01 PM DIRECTOR OF INSTITUTIONAL SALES) C3 COMPLEMENT 135 83 - 193 mg/dL 09/16/2020 9:12 PM DIRECTOR OF INSTITUTIONAL SALES [facility] Blood Venipuncture / Unknown 09/16/2020 12:01 PM DIRECTOR OF INSTITUTIONAL SALES 09/16/2020 12:52 PM DIRECTOR OF INSTITUTIONAL SALES us Mimi Caballero MD CHEMISTRY ORDERABLES Final Resul t [facility] [address] [place] [address], documented in this encounter Visit Diagnoses Diagnosis Vitamin D deficiency disease- Primary Unspecified vitamin D deficiency Lupus Systemic lupus erythematosus Neuropathy Mononeuritis of unspecified site Fatigue due to depression Arthritis Arthropathy, unspecified, site unspecified Myalgia Mylagia and myositis, unspecified Hypomagnesemia Disorders of magnesium metabolism Diabetes mellitus screening Screening for diabetes mellitus Vitamin B12 deficiency disease Other B-complex deficiencies Encounter for therapeutic drug monitoring documented in this encounter Additional Health Concerns Infection Onset Date Last Indicated Resolved Time COVID - 19 10/07/2021 10/07/2021 10/27/2021 12:1 6 AM DIRECTOR OF INSTITUTIONAL SALES Assessment Noted Time PHQ-9 Depression Total Score: 0 04/30/20 1:43 PM CDT documented as of this encounter Care Teams Development And Planning Engineer Relationship Specialty Start Date End Date Max Cervantes MD [address] [place] [address] PCP - General Family Medicine 09/09/23 06/14/24 Jory Paz APRN, VICE PRESIDENT OF CONTRACTS [address] [phone] PCP - General Advanced Practice Nurse 07/04/24 documented as of this encounter
--- OUTSIDE RECORDS SUMMARY | 2025-02-16 15:25 | XMS_ITS | Encounter Summary ---
Author Organization [facility] Address [address] [facility] [place] [address] Phone Care Team Providers Care Cream Gatherer Name Role Phone Max Cervantes MD Primary Care Provider [phone] Jory Paz APRN, CNP Primary Care Provid er Reason for Visit * Reason Comments Medication Refill Encounter Details Date Type Department Care Team (Late st Contact Info) Description 11/22/2023 Refill [facility] - [facility] [address] [place] [address] Bonnie Jolley MD [address] [place] [address] Medication Refill Social History Tobacco Use Types Packs/Day Years Used Date Smoking Tobacco: Never Smokeless Tobacco: Never Alcohol Use Standard Drinks/Week Comments Yes 0 (1 standard drink = 0.6 oz pur e alcohol) Socially only, rarely [facility] Utilities Answer Date Recorded In the past 12 months has [employer], gas, oil, or water company threatened [...] often do you attend chur ch or temple services? More than 4 times per year 11/09/2023 Do you belong to any clubs o r organizations such as advent groups, unions, fraternal or athletic groups, or [...] Total Score - Questions 1-9 0 08/08 [facility] Occupat ional [facility] - Occupational Stress [...] place to sleep or slept in a fpc (including now)? No 11/09/2023 Education Answer Date [...] CDT Gender Identity Female 09/27/2023 8:13 PM [employer] Sexual Orientation Straight 09/27/2023 8: 13 PM [employer] 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 Not on file Not on file Not on file documented as of this encounter Miscellaneous Notes * Telephone Encounter - Princess Ellis RN - 11/23/2023 8:11 AM CST Medication failed the protocol, provider to review and approve the medication order if appropriate. Requested Prescriptions Pending Prescriptions Disp Refills amitriptyline (ELAVIL) 25 MG Tablet [Pharmacy Med Name: AMITRIPTYLINE 25MG TABLETS] 90 Tablet 1 Sig: TAKE 1 TABLET BY MOUTH EVERY NIGHT Not Delegated - Tricyclic Agents Protocol Failed - 11/22/2023 8:05 PM Failed - This refill cannot be delegated Passed - Visit with relevant provider in past 12 months or upcoming 90 days Recent Visits Date Type Provider Dept 11/10/23 Office Visit Haroon Reyes [facility] 09/09/23 Office Visit Max Cervantes MD [facility] 02/25/23 Office Visit Bonnie Jolley MD [facility] 11/25/22 Office Visit Bonnie Jolley MD [facility] Showing recent visits within past 365 days and meeting all other requirements Future Appointments No visits were found meeting these conditions. Showing future appointments within next 90 days and meeting all other requirements pantoprazole (PROTONIX) 40 MG Tablet Delayed Response [Pharmacy Med Name: PANTOPRAZOLE 40MG TABLETS] 90 Tablet 1 Sig: TAKE 1 TABLET BY MOUTH DAILY Proton Pump Inhibitors Protocol Passed - 11/22/2023 8:05 PM Passed - Visit with relevant provider in past 12 months or upcoming 90 days Recent Visits Date Type Provider Dept 11/10/23 Office Visit Haroon Reyes APRN, [facility] 09/09/23 Office Visit Max Cervantes MD [facility] 02/25/23 Office Visit Bonnie Jolley MD [facility] 11/25/22 Office Visit Bonnie Jolley MD [facility] Showing recent visits within past 365 days and meeting all other requirements Future Appointments No visits were found meeting these conditions. Showing future appointments within next 90 days and meeting all other requirements [employer] documented in this encounter Plan of Treatment Upcoming Encounters Date Type Department Care Team (Late st Contact Info) Description 07/05/2025 1:30 PM CDT Office Visit [facility] - [facility] - [place] [address] [place] [address] Jory Paz APRN, [employer] [address] [address] documented as of this encounter Visit Diagnoses Not on filedocumented in this encounter Additional Health Concerns Assessment Noted Time PHQ-9 Depression Total Score: 0 08/21/20 21 12:57 PM CDT documented as of this encounter Care Teams Cream Gatherer Relationship Specialty Start Date End Date Max Cervantes MD [address] [place] [address] PCP - General Family Medicine 09/09/23 06/14/24 Jory Paz APRN, [employer] [address] [address] PCP - General Advanced Practice Nurse 07/04/24 documented as of this encounter
--- OUTSIDE RECORDS SUMMARY | 2025-02-16 15:25 | XMS_ITS | Clinical Summary ---
Author Organization [facility] Address [address] [place] [address] Phone Care Team Providers Care Creative Strategist Name Role Phone KENIA BRONSON MD Primary Care Provider [phone] DRU RIDLEY, MICHAELA Stroud Unavailable [phone] Reason for Visit and Chief Complaint PROBLEM VISIT Problems Includes: Problems addressed during this encounter and other active Problems All Visits Onset Date Resolved Date Provider Condition S tatus Cystocele 12/13/2023 ELADIO Flynn [facility] Active Last Documented On 12/13/2023 2:41PM ; [facility] Note: Unchanged Urge Incontinence of Urine 07/03/2016 MICHAELA GONSALES MD Active Last Documented On 07/03/2016 10:26AM ; [facility] Note: Unchanged Breast Fibrocystic Disease 04/10/2014 MICHAELA GONSALES MD Active Last Documented On 04/10/2014 10:21AM ; [facility] Note: Unchanged History of Osteopenia 04/10/2014 MICHAELA GONSALES MD Active Last Documented On 04/10/2014 10:21AM ; [facility] Note: Unchanged History of Total Abdominal Hysterectomy 04/10/2014 MICHAELA GONSALES MD Active Last Documented On 04/10/2014 10:21AM ; [facility] Note: Unchanged - DR. LAM in 1982 d ue to fibroids Plan of Treatment No Plan of Treatment Recorded Assessments Includes: Assessments from this encounter No Assessments Recorded Medical Equipment - Implanted Devices Includes: Current Devices No Medical Equipment Recorded Medications Includes: Medications discussed during this encounter and other current Medications Discontinued / Stopped on this date MICHAELA GONSALES MD on 08/21/2022 Oxybutynin Chloride 5 MG Oral Tablet Prov ider: MICHAELA GONSALES MD Diagnosis: Urge incontinenc e Last Documented On 12/13/2023 1:41PM By Ena Mcdaniel ; [facility] Myrbetriq 25 MG Oral Tablet Extended Release 24 Hour Provider: MICHAELA GONSALES MD Diagnosis: Urge incontinenc e Last Documented On 12/13/2023 1:41PM By Ena Mcdaniel ; [facility] Current Medications (continue as prescribed) Flonase 50 MCG/ACT Nasal Suspension 08/21/2022 Provi chaz: Diagnosis: Last Documented On 2 2:40PM By DELILAH MIN ; [facility] Ipratropium [place] 0.03% Nasal Solution 08/21/2022 Provider: Diagnosis: Last Documented On 2 3:05PM By DELILAH MIN ; [facility] Melatonin 5 MG Oral Tablet 08/21/2022 Provider: Diagnosis: Last Documented On 2 2:42PM By DELILAH MIN ; [facility] DULoxetine HCl 20 MG Oral Capsule Delayed Releas e Particles 08/13/2020 Provider: Diagnosis: Last Documented On 0 12:43PM By Jermain MIN ; [facility] Losartan Potassium 100 MG Oral Tablet 08/13/2020 Pro vider: Diagnosis: Last Documented On 0 12:44PM By Jermain MIN ; [facility] Calcium 600 MG Oral Tablet 08/13/2020 Provider: Diagnosis: Last Documented On 0 12:45PM By Jermain MIN ; [facility] Pantoprazole Sodium 40 MG Oral Tablet Delayed Release 08/13/2020 Provider: Diagnosis: Last Documented On 0 12:45PM By Jermain MIN ; [facility] ProAir HFA 108 (90 Base) MCG/ACT Inhalation Aero aimee Solution 08/13/2020 Provider: Diagnosis: Last Documented On 0 12:46PM By Jermain MIN ; [facility] Amitriptyline HCl 25 MG Oral Tablet 08/13/2020 Provi chaz: Diagnosis: Last Documented On 0 12:43PM By Jermain MIN ; [facility] Rosuvastatin Calcium 10MG Oral Tablet 08/08/2018 Pro vider: Diagnosis: one a day Last Documented On 8 2:38PM By DELILAH MIN ; [facility] Dudley Fiber Good 2GM Oral Tablet Chewable 8 Provider: Diagnosis: 1-2 a day Last Documented On 8 2:36PM By DELILAH MIN ; [facility] Papaya Enzyme Oral Tablet 08/08/2018 Provider: Diagnosis: prn Last Documented On 8 2:36PM By DELILAH MIN ; [facility] Vitamin D3 2000UNIT Oral Capsule 08/08/2018 Provider : Diagnosis: one a day Last Documented On 8 2:37PM By DELILAH MIN ; [facility] Tylenol Extra Strength 500 MG OR TABS 04/10/2014 Pro vider: Diagnosis: Last Documented On 4 10:01AM By SARAH PANCHAL LPN ; [facility] hydroCHLOROthiazide 12.5 MG TABS 04/10/2014 Provider : Diagnosis: Last Documented On 4 9:57AM By SARAH PANCHAL LPN ; [facility] Medications Administered Includes: Administered Medications from this encounter No Administered Medications Recorded Results Includes: Results discussed during this encounter No Results Recorded For Specified Dates History of Present Illness Includes: History of Present Illness from this encounter No History of Present Illness Recorded Social History No Social History Recorded - Smoking Status Unknown Medical History Includes: Medical History addressed during this encounter No Medical History Recorded Family History Includes: Family History addressed during this encounter No Family History Recorded Review of Systems Includes: Review of Systems from this encounter No Review of Systems Recorded Mental Status Includes: Mental Status from this encounter No Mental Status Recorded Functional Status Includes: Functional Status from this encounter No Functional Status Recorded Physical Exam Includes: Physical Exam from this encounter No Physical Exam Recorded Allergies Includes: Active Allergies Substance Type Reaction Onset Date Resolved Date Statu s WHEAT Allergy 02/22/2012 Resolved Last Documented On 6 9:52AM ; [facility] POTATO Allergy 02/22/2012 Resolved Last Documented On 6 9:52AM ; [facility] Morphine Sulfate ER Allergy Nausea, Vomiting 08/21/2022 Active Last Documented On 4 1:41PM ; [facility] Macrolides and Ketolides Allergy Nausea 08/08/2018 Active Last Documented On 4 1:41PM ; [facility] Levaquin Allergy 08/08/2018 Active Last Documented On 4 1:41PM ; [facility] Note: tendonitis from taking per pt GLUTEN Allergy 02/22/2012 Resolved Last Documented On 6 9:52AM ; [facility] DAIRY Allergy 02/22/2012 Resolved Last Documented On 6 9:52AM ; [facility] Cipro Allergy 08/08/2018 Active Last Documented On 4 1:41PM ; [facility] Note: tendonitis from it Insurance Includes: Active Insurance Policies Plan Name Member ID Group # Subscriber Relationship Effect jerry Dates 1 - MEDICARE PART A CLAIMS/NGS [id number] VINEET Navarro 2 - [facility] [id number] VINEET Navarro Clinical Notes Includes: Clinical Notes from this encounter No Clinical Notes Recorded
--- OUTSIDE RECORDS SUMMARY | 2025-02-16 15:26 | XMS_ITS | Clinical Summary ---
Author Organization [facility] Address [address] [place] [address] Phone Care Team Providers Care Restaurant Cashier Name Role Phone KENIA BRONSON MD Primary Care Provider [phone] MICHAELA GONSALES MD Unavailable [phone] Reason for Visit and Chief Complaint The Chief Complaint is: return in 2 years for WWE (45 min). Pt states no c/o Problems Includes: Problems addressed during this encounter and other active Problems Current Visit Onset Date Resolved Date Provider Conditio n Status Urge Incontinence of Urine 07/03/2016 MICHAELA GONSALES MD Active Last Documented On 07/03/2016 10:26AM ; [facility] Note: Unchanged Breast Fibrocystic Disease 04/10/2014 MICHAELA GONSALES MD Active Last Documented On 04/10/2014 10:21AM ; [facility] Note: Unchanged History of Osteopenia 04/10/2014 MICHAELA GONSALES MD Active Last Documented On 04/10/2014 10:21AM ; [facility] Note: Unchanged History of Total Abdominal Hysterectomy 04/10/2014 MICHAELA GONSALES MD Active Last Documented On 04/10/2014 10:21AM ; [facility] Note: Unchanged - DR. LAM in 1982 d ue to fibroids Urge Incontinence of Urine 10/14/2012 Unknown MICHAELA GONSALES MD Resolved Last Documented On 10:12AM ; [facility] Past Visits Onset Date Resolved Date Provider Condition Status Cystocele 12/13/2023 ELADIO Flynn VIKTORIYA Active Last Documented On 12/13/2023 2:41PM ; [facility] Note: Unchanged Plan of Treatment - Follow-up visit 1 year or as needed - Last Documented On 08/21/2022 3:28PM ; [facility] She will let us know if she has other problems in the meantime. - Last Documented On 08/21/2022 3:28PM ; [facility] Instructions to patient Instructions for patient : B reast Self Exam discussed Last Documented On 2 3:03PM ; [facility] Education and Decision Aids were provided during visit for: STD screening offered and de clined Last Documented On 2 3:03PM ; [facility] Bone Mineral Density Screeni ng guidelines reviewed will do in 2022 Last Documented On 2 3:12PM ; [facility] Patient Education: Daily gayla cium and vitamin D Last Documented On 2 3:03PM ; [facility] Patient Education: weight be aring exercise Last Documented On 2 3:03PM ; [facility] Colonoscopy screening guidel mackenzie discussed Last Documented On 2 3:03PM ; [facility] Assessments Includes: Assessments from this encounter Findings - Urge incontinence of urine - Last Documented On 08/21/2022 3:28PM ; [facility] - Fibrocystic disease of breast - Last Documented On 08/21/2022 3:28PM ; [facility] - NORMAL FEMALE EXAM - Last Documented On 08/21/2022 3:28PM ; [facility] - Osteopenia - Last Documented On 08/21/2022 3:28PM ; [facility] - E-SCRIPT INCENTIVE - Last Documented On 08/21/2022 3:28PM ; [facility] - Screening Malig. Neoplasm Rectum - Last Documented On 08/21/2022 3:28PM ; [facility] Instructions Includes: Instructions from this encounter Instructions to patient Instructions for patient : B reast Self Exam discussed Last Documented On 2 3:03PM ; [facility] Education and Decision Aids were provided during visit for: STD screening offered and de clined Last Documented On 2 3:03PM ; [facility] Bone Mineral Density Screeni ng guidelines reviewed will do in 2022 Last Documented On 2 3:12PM ; [facility] Patient Education: Daily gayla cium and vitamin D Last Documented On 2 3:03PM ; [facility] Patient Education: weight be aring exercise Last Documented On 2 3:03PM ; [facility] Colonoscopy screening guidel mackenzie discussed Last Documented On 2 3:03PM ; [facility] Medical Equipment - Implanted Devices Includes: Current Devices No Medical Equipment Recorded Medications Includes: Medications discussed during this encounter and other current Medications Discontinued / Stopped on this date on 09/02/2020 Mobic 7.5 MG Oral Tablet Provider: Diagnosis: Last Documented On 2 2:40PM By DELILAH MIN ; [facility] New / Renewed during this visit MICHAELA GONSALES MD on 08/21/2022 Oxybutynin Chloride 5 MG Oral Tablet Provider: MICHAELA GONSALES MD 30 day supply: 30 tablet, 3 refills Diagnosis: Urge incontinence One tablet daily Pharmacy: [facility] [address] , [facility], [id number] - Last Documented On 12/13/2023 1:41PM By Ena Mcdaniel ; [facility] Current Medications (continue as prescribed) Flonase 50 MCG/ACT Nasal Suspension 08/21/2022 Provi chaz: Diagnosis: Last Documented On 2 2:40PM By DELILAH MIN ; [facility] Ipratropium Fate 0.03% Nasal Solution 08/21/2022 Provider: Diagnosis: Last Documented On 2 3:05PM By DELILAH MIN ; [facility] Melatonin 5 MG Oral Tablet 08/21/2022 Provider: Diagnosis: Last Documented On 2 2:42PM By DELILAH MIN ; [facility] DULoxetine HCl 20 MG Oral Capsule Delayed Releas e Particles 08/13/2020 Provider: Diagnosis: Last Documented On 0 12:43PM By Jermain MIN ; [facility] Losartan Potassium 100 MG Oral Tablet 08/13/2020 Pro vider: Diagnosis: Last Documented On 0 12:44PM By Jermain MIN ; [facility] Calcium 600 MG Oral Tablet 08/13/2020 Provider: Diagnosis: Last Documented On 0 12:45PM By Jermain MIN ; [facility] Pantoprazole Sodium 40 MG Oral Tablet Delayed Release 08/13/2020 Provider: Diagnosis: Last Documented On 0 12:45PM By Jermain MIN ; [facility] ProAir HFA 108 (90 Base) MCG/ACT Inhalation Aero aimee Solution 08/13/2020 Provider: Diagnosis: Last Documented On 0 12:46PM By Jermain MIN ; [facility] Amitriptyline HCl 25 MG Oral Tablet 08/13/2020 Provi chaz: Diagnosis: Last Documented On 0 12:43PM By Jermain MIN ; [facility] Rosuvastatin Calcium 10MG Oral Tablet 08/08/2018 Pro vider: Diagnosis: one a day Last Documented On 8 2:38PM By DELILAH MIN ; [facility] Dudley Fiber Good 2GM Oral Tablet Chewable 8 Provider: Diagnosis: 1-2 a day Last Documented On 8 2:36PM By DELILAH MIN ; [facility] Papaya Enzyme Oral Tablet 08/08/2018 Provider: Diagnosis: prn Last Documented On 8 2:36PM By DELILAH MIN ; [facility] Vitamin D3 2000UNIT Oral Capsule 08/08/2018 Provider : Diagnosis: one a day Last Documented On 8 2:37PM By DELILAH MIN ; [facility] Tylenol Extra Strength 500 MG OR TABS 04/10/2014 Pro vider: Diagnosis: Last Documented On 4 10:01AM By SARAH PANCHAL LPN ; [facility] hydroCHLOROthiazide 12.5 MG TABS 04/10/2014 Provider : Diagnosis: Last Documented On 4 9:57AM By SARAH PANCHAL LPN ; [facility] Past Medications on file Nitrofurantoin Monohyd Macro 100 MG Oral Capsule 12/19/2023 - 12/26/2023 Provider: ELADIO ADLER RN VIKTORIYA Diagnosis: Urinary tract infection, site not specified 1 BID ONE TAB TWICE A DAY W/FOOD Last Documented On 4 8:27AM By ELADIO FLORES- ; [facility] Medications Administered Includes: Administered Medications from this encounter No Administered Medications Recorded Vital Signs Includes: Vital Signs from this encounter Vital Name 08/21/2022 02:55P Blood Pressure Sitting (mmHg) 136/84 Temp-Oral (F) 98.4 Height (in) 60.75 Weight (lb) 194.6 Body Mass Index (kg/m2) 37.1 Body Surface Area (m2) 1.9 Last Documented: On 08/21/2022 2:56PM ; [facility] Results Includes: Results discussed during this encounter No Results Recorded For Specified Dates History of Present Illness Includes: History of Present Illness from this encounter ABRAHAM NGO is a 72 year old female. - Allergy list reviewed - Medication list reviewed Pt liked the myrbetriq but it didn't like her: it caused GERD so she quit in Arpil 2020. She is still using pads: 4 per day and would be interested in trying a different med. She states she just recently had an eye exam and can confirm that she doesn't have glaucoma. Side effects are discussed and she wants to try. Will start with oxybutynin Social History Description Last Updated Retired 08/08/2018 Last Documented On 2 2:30PM ; [facility] Exercising regularly 3 x week 08/08/2018 Last Documented On 2 2:30PM ; [facility] Sexually active with 0 partners in the l ast year 08/08/2018 Last Documented On 2 2:30PM ; [facility] Social history unchanged 04/10/2014 Last Documented On 2 2:30PM ; [facility] Smoking status : Never smoker 04/10/2014 Last Documented On 2 2:30PM ; [facility] Marital history 02/22/2012 Last Documented On 2 2:30PM ; [facility] Not using alcohol 02/22/2012 Last Documented On 2 2:30PM ; [facility] Not using drugs 02/22/2012 Last Documented On 2 2:30PM ; [facility] Sexually active 02/22/2012 Last Documented On 2 2:30PM ; [facility] Procedures and Surgical History Includes: Procedures from this encounter Procedures Code Diagnosis Performing Provider Service L ocation Service Date use of tobacco assessment performed 1000F Last Documented On 2 2:34PM ; [facility] patient screened for future fall risk: documentation of any fall with injury in past year 1100F Last Documented On 2 2:51PM ; [facility] total hysterectomy 1982 Last Documented On 2 2:56PM ; [facility] Clinical summary provided to patient Last Documented On 2 3:03PM ; [facility] vaginal Pap smear 13448 Last Documented On 2 3:03PM ; [facility] history of vaginal Pap smear 04/10/2014 Normal 88 150 Last Documented On 2 2:34PM ; [facility] patient recently had a dexa scan 08/15/18 [facility] Last Documented On 2 2:51PM ; [facility] FIT Test-Fecal Occult negative 78938 Last Documented On 2 3:03PM ; [facility] Surgical History Last Updated Surgical / procedural histor y CYSTOCELE AND RECTOCELE by Dr Webb at [facility] on 08/16/2009 and then had to have the mesh released on 08/29/2009 at [facility]. Since then she has seen Dr Estela Torre at [facility]. ~TEX CARPAL TUNNEL. ~bunion surgery in [facility] Dr Mantilla ~Left ear surgery 202108/21/2022 Last Documented On 2 3:28PM ; [facility] History of total hysterectomy 08/21 Last Documented On 2 3:28PM ; [facility] Surgical history unchanged 04/10/2014 Last Documented On 2 2:30PM ; [facility] History of total abdominal h ysterectomy DR. LAM in 1982 due to fibroids 02/23/2012 Last Documented On 2 2:30PM ; [facility] Dilation + Curettage 02/22/2012 Last Documented On 2 2:30PM ; [facility] Tonsillectomy 02/22/2012 Last Documented On 2 2:30PM ; [facility] History of hysterectomy 02/22/2012 Last Documented On 2 2:30PM ; [facility] Medical History Includes: Medical History addressed during this encounter Description Last Updated History of a DXA of the late ral lumbar spine was performed -- osteopenia in spine STA 01/15/2014 12/13/2023 Last Documented On 2 2:30PM ; [facility] Last mammogram date: 08/26/2020 12/13/19 Last Documented On 2 2:30PM ; [facility] Anxiety 08/21/2022 Last Documented On 2 3:28PM ; [facility] Result: normal STA 08/21/2022 Last Documented On 2 3:28PM ; [facility] History of colonoscopy fiberoptic was pe rformed 05/07/2014 08/21/2022 Last Documented On 2 3:28PM ; [facility] History of screening mammogram was perfo rmed 08/26/2020 STA 08/21/2022 Last Documented On 2 3:28PM ; [facility] Primary Care Provider: Dr. Bonnie Bronson retired 08/21/2022 Last Documented On 2 3:28PM ; [facility] A colonoscopy was performed 05/07/14 STA 12/02/2020 Last Documented On 2 2:30PM ; [facility] Patient recently had a dexa scan 018 [facility] 12/02/2020 Last Documented On 2 2:30PM ; [facility] Last pap smear date 04/10/2014 12/02/2020 Last Documented On 2 2:30PM ; [facility] LMP: 198212/02/2020 Last Documented On 2 2:30PM ; [facility] GLUTEN FREE-- avoiding Wheat , Dairy, and Potato per her report. ~Pt states has mild fibromyalgia dx'd in 2017: itching, neuropathy, carpal tunnnel again bilaterally, achiness, insomnia 08/08/2018 Last Documented On 2 2:30PM ; [facility] Not sexually active 08/08/2018 Last Documented On 2 2:30PM ; [facility] Vaginal delivery 07/03/2016 Last Documented On 2 2:30PM ; [facility] History of osteopenia 04/10/2014 Last Documented On 2 2:30PM ; [facility] History of chronic reflux esophagitis Last Documented On 2 2:30PM ; [facility] Recent change in medical his tory asthma on inhalers ~EGD 04/03/14 Dr Craig gastritis, ulcer, Pancho's, and hiatal hernia. Had CT with contrast 04/09/14 04/10/2014 Last Documented On 2 2:30PM ; [facility] Aborta 1 02/22/2012 Last Documented On 2 2:30PM ; [facility] 3 02/22/2012 Last Documented On 2 2:30PM ; [facility] Para 2 02/22/2012 Last Documented On 2 2:30PM ; [facility] History of urinary tract infection 02/21 Last Documented On 2 2:30PM ; [facility] Not using contraception 02/22/2012 Last Documented On 2 2:30PM ; [facility] Result: normal AND HPV NEGATIVE 02/22/20 12 Last Documented On 2 2:30PM ; [facility] Family History Includes: Family History addressed during this encounter Description Last Updated Sororal history of cancer skin cancer st age 1 08/21/2022 Last Documented On 2 3:28PM ; [facility] Family history of heart disease BROTHER AND SISTERS 02/22/2012 Last Documented On 2 2:30PM ; [facility] Family history of hypercholesterolemia P ATIENT AND PARENTS 02/22/2012 Last Documented On 2 2:30PM ; [facility] Family history of hypertension PATIENT A ND FAMILY HX OF 02/22/2012 Last Documented On 2 2:30PM ; [facility] Review of Systems Includes: Review of Systems from this encounter Gastrointestinal: No nausea, no vomiting, and no hematochezia. Genitourinary: No change in urinary frequency and no feelings of urinary urgency. No dysuria, no stress incontinence, does not feel like bladder is falling out, no vaginal itching or burning, and no vaginal pain during intercourse. No vaginal dryness and no unexplained vaginal bleeding. Neurological: No ataxia. Psychological: No fear of falling, no depression, and no sleep disturbances. Past Medical: A fall in the past 6 months. A fall was three times in the past six (6) months. Mental Status Includes: Mental Status from this encounter Description Anxiety Functional Status Includes: Functional Status from this encounter No Functional Status Recorded Physical Exam Includes: Physical Exam from this encounter Allergies Includes: Active Allergies Substance Type Reaction Onset Date Resolved Date Statu s WHEAT Allergy 02/22/2012 Resolved Last Documented On 6 9:52AM ; [facility] POTATO Allergy 02/22/2012 Resolved Last Documented On 6 9:52AM ; [facility] Morphine Sulfate ER Allergy Nausea, Vomiting 08/21/2022 Active Last Documented On 4 1:41PM ; [facility] Macrolides and Ketolides Allergy Nausea 08/08/2018 Active Last Documented On 4 1:41PM ; [facility] Levaquin Allergy 08/08/2018 Active Last Documented On 4 1:41PM ; [facility] Note: tendonitis from taking per pt GLUTEN Allergy 02/22/2012 Resolved Last Documented On 6 9:52AM ; [facility] DAIRY Allergy 02/22/2012 Resolved Last Documented On 6 9:52AM ; [facility] Cipro Allergy 08/08/2018 Active Last Documented On 4 1:41PM ; [facility] Note: tendonitis from it Encounters Encounter Provider Location Date Check-In Time Check-Out Time Diagnosis WELL WOMAN - ESTABLISHED PT MICHAELA GONSALES MD [facility] 08/21/20 22 2:21PM 3:33PM Osteopenia,Lola st Fibrocystic Disease,Screeni ng Malig. Neoplasm Rectum,Normal Female Exam,E-script Incentive,Urge Incontinence of Urine Insurance Includes: Active Insurance Policies Plan Name Member ID Group # Subscriber Relationship Effect jerry Dates 1 - MEDICARE PART A CLAIMS/NGS [id number] [employer] Self 2 - [facility] [id number] [employer] Self Clinical Notes Includes: Clinical Notes from this encounter No Clinical Notes Recorded
--- OUTSIDE RECORDS SUMMARY | 2025-02-16 15:26 | XMS_ITS ---
Care Plan - [facility] Created on: February 16, 2025 VINEET NGO : [id number] Sex: Female Author Organization [facility] Address [address] [place] [address] Phone Care Team Providers Care Recovery Analyst Name Role Phone AIYANA RIDLEY, KENIA Gan Primary Care Provider [phone] MICHAELA GONSALES MD Unavailable [phone]
--- OUTSIDE RECORDS SUMMARY | 2025-02-16 15:26 | XMS_ITS | Continuity of Care Document ---
Author Organization [facility] Address [address] [place] [address] Phone Care Team Providers Care Tank Builder And Erector Name Role Phone Unavailable Unavailable Unavailable Procedures Procedure Date Office/outpatient visit,[facility], [facility] 2008 MRI lwr extrm joint, w/contrast 009 Office/outpatient visit,[facility] 2008 X-ray exam of knee, 1 or2 views 009 X-ray exam of knee, 1 or2 views 009 X-ray exam of both knees, standing Advance Directives Directive Yes / No Effective Date File Name No Information Encounters Encounter Description Practice Location Reason(s) For Visit Diagnoses Date Provider Providers Copied on Encounter Office/outpat ient visit,est, [facility] [place] [facility], [address], [id number], [place] tel:[phone] [facility] No Information 9 No Information [facility], [address] [place] [address], [place], [id number], [place] tel:[phone] [facility] No Information 9 [facility]. [address], [place], [place], [id number], [place]. tel:[phone] Office/outpat ient visit,new, [facility] [place] [facility], [address], [place], [place], [id number], [place] tel:[phone] [facility] No Information Mar-0 4-200 9 No Information Family History Family Member Type Diagnosis Age At Onset No Information Payers Payer name Insurance type Covered democrat ID Authoriza tiwilfredo(s) [facility] [id number] Social History Type Description Quantity Date Captured Comments Sex Female Smoking Status No Information Chief Complaint And Reason For Visit No Information Reason For Referral Reason For Referral No Information History Of Present Illness Encounter Date Complaint History Of Prese nt Illness No Information Functional Status Date Functional Assessmen t No Information Instructions Date Instruction Additional Infor mation No Information Assessments Type Assessment Date No Information Patient Care Teams Name Effective Dates (start - stop) Status Members No Information
--- OUTSIDE RECORDS SUMMARY | 2025-02-16 15:26 | XMS_ITS | Clinical Summary ---
Author Organization [facility] Address [address] [place] [address] Phone Care Team Providers Care Production Administrator Name Role Phone KENIA BRONSON MD Primary Care Provider [phone] MICHAELA GONSALES MD Unavailable [phone] Reason for Visit and Chief Complaint The Chief Complaint is: Pt was scheduled back, too early, for her WWE today. She was not due to come back, until after 08/13/22. Pt cancelled her med ck on Myrbetriq, 08/2021, because she states she stopped the Myrbetriq 3 months after she started it, around 02/2021. She states that it gave her severe GERD, and she does not want to discuss the problem, she just doesn't want to take it anymore........06/08/22 ed Problems Includes: Problems addressed during this encounter and other active Problems Current Visit Onset Date Resolved Date Provider Conditio n Status History of Osteopenia 04/10/2014 MICHAELA GONSALES MD Active Last Documented On 04/10/2014 10:21AM ; [facility] Note: Unchanged History of Total Abdominal Hysterectomy 04/10/2014 MICHAELA GONSALES MD Active Last Documented On 04/10/2014 10:21AM ; [facility] Note: Unchanged - DR. LAM in 1982 d ue to fibroids Past Visits Onset Date Resolved Date Provider Condition Status Cystocele 12/13/2023 ELADIO Flynn [facility] Active Last Documented On 12/13/2023 2:41PM ; [facility] Note: Unchanged Urge Incontinence of Urine 07/03/2016 MICHAELA GONSALES MD Active Last Documented On 07/03/2016 10:26AM ; [facility] Note: Unchanged Breast Fibrocystic Disease 04/10/2014 MICHAELA GONSALES MD Active Last Documented On 04/10/2014 10:21AM ; [facility] Note: Unchanged Plan of Treatment Pt not seen by MD today: too early. No charges for today. - Last Documented On 06/08/2022 3:26PM ; [facility] Assessments Includes: Assessments from this encounter No Assessments Recorded Medical Equipment - Implanted Devices Includes: Current Devices No Medical Equipment Recorded Medications Includes: Medications discussed during this encounter and other current Medications Current Medications (continue as prescribed) Flonase 50 MCG/ACT Nasal Suspension 08/21/2022 Provi chaz: Diagnosis: Last Documented On 2 2:40PM By DELILAH MIN ; [facility] Ipratropium [place] 0.03% Nasal Solution 08/21/2022 Provider: Diagnosis: Last Documented On 2 3:05PM By DELILAH MIN ; [facility] Melatonin 5 MG Oral Tablet 08/21/2022 Provider: Diagnosis: Last Documented On 2 2:42PM By DELILAH MIN ; [facility] DULoxetine HCl 20 MG Oral Capsule Delayed Releas e Particles 08/13/2020 Provider: Diagnosis: Last Documented On 0 12:43PM By Jermain MIN ; [facility] Losartan Potassium 100 MG Oral Tablet 08/13/2020 Pro vider: Diagnosis: Last Documented On 0 12:44PM By Jermain MIN ; [facility] Calcium 600 MG Oral Tablet 08/13/2020 Provider: Diagnosis: Last Documented On 0 12:45PM By Jermain MIN ; [facility] Pantoprazole Sodium 40 MG Oral Tablet Delayed Release 08/13/2020 Provider: Diagnosis: Last Documented On 0 12:45PM By Jermain MIN ; [facility] ProAir HFA 108 (90 Base) MCG/ACT Inhalation Aero aimee Solution 08/13/2020 Provider: Diagnosis: Last Documented On 0 12:46PM By Jermain MIN ; [facility] Amitriptyline HCl 25 MG Oral Tablet 08/13/2020 Provi chaz: Diagnosis: Last Documented On 0 12:43PM By Jermain Mccauley Rickey ; [facility] Rosuvastatin Calcium 10MG Oral Tablet 08/08/2018 Pro vider: Diagnosis: one a day Last Documented On 8 2:38PM By DELILAH RIVAS Rickey ; [facility] Dudley Fiber Good 2GM Oral Tablet Chewable 8 Provider: Diagnosis: 1-2 a day Last Documented On 8 2:36PM By DELILAH RIVAS Rickey ; [facility] Papaya Enzyme Oral Tablet 08/08/2018 Provider: Diagnosis: prn Last Documented On 8 2:36PM By DELILAH RIVAS Rickey ; [facility] Vitamin D3 2000UNIT Oral Capsule 08/08/2018 Provider : Diagnosis: one a day Last Documented On 8 2:37PM By DELILAH RIVAS Rickey ; [facility] Tylenol Extra Strength 500 MG OR TABS 04/10/2014 Pro vider: Diagnosis: Last Documented On 4 10:01AM By SARAH PANCHAL LPN ; [facility] hydroCHLOROthiazide 12.5 MG TABS 04/10/2014 Provider : Diagnosis: Last Documented On 4 9:57AM By SARAH PANCHAL LPN ; [facility] Past Medications on file Nitrofurantoin Monohyd Macro 100 MG Oral Capsule 12/19/2023 - 12/26/2023 Provider: ELADIO NDIAYE Diagnosis: Urinary tract infection, site not specified 1 BID ONE TAB TWICE A DAY W/FOOD Last Documented On 4 8:27AM By ELADIO FLORES-ZELDA ; [facility] Medications Administered Includes: Administered Medications from this encounter No Administered Medications Recorded Results Includes: Results discussed during this encounter No Results Recorded For Specified Dates History of Present Illness Includes: History of Present Illness from this encounter No History of Present Illness Recorded Social History Description Last Updated Retired 08/08/2018 Last Documented On 2 2:21PM ; [facility] Exercising regularly 3 x week 08/08/2018 Last Documented On 2 2:21PM ; [facility] Sexually active with 0 partners in the l ast year 08/08/2018 Last Documented On 2 2:21PM ; [facility] Social history unchanged 04/10/2014 Last Documented On 2 2:21PM ; [facility] Smoking status : Never smoker 04/10/2014 Last Documented On 2 2:21PM ; [facility] Marital history 02/22/2012 Last Documented On 2 2:21PM ; [facility] Not using alcohol 02/22/2012 Last Documented On 2 2:21PM ; [facility] Not using drugs 02/22/2012 Last Documented On 2 2:21PM ; [facility] Sexually active 02/22/2012 Last Documented On 2 2:21PM ; [facility] Procedures and Surgical History Includes: Procedures from this encounter Procedures Code Diagnosis Performing Provider Service L ocation Service Date use of tobacco assessment performed 1000F Last Documented On 2 2:24PM ; [facility] Surgical History Last Updated Surgical / procedural histor y CYSTOCELE AND RECTOCELE by Dr Webb at [facility] on 08/16/2009 and then had to have the mesh released on 08/29/2009 at [facility]. Since then she has seen Dr Estela Torre at [facility]. ~TEX CARPAL TUNNEL 08/21/2022 Last Documented On 2 2:21PM ; [facility] Surgical history unchanged 04/10/2014 Last Documented On 2 2:21PM ; [facility] History of total abdominal h ysterectomy DR. LAM in 1982 due to fibroids 02/23/2012 Last Documented On 2 2:21PM ; [facility] Dilation + Curettage 02/22/2012 Last Documented On 2 2:21PM ; [facility] Tonsillectomy 02/22/2012 Last Documented On 2 2:21PM ; [facility] History of hysterectomy 02/22/2012 Last Documented On 2 2:21PM ; [facility] Medical History Includes: Medical History addressed during this encounter Description Last Updated History of a DXA of the late ral lumbar spine was performed -- osteopenia in spine STA 01/15/2014 12/13/2023 Last Documented On 2 2:21PM ; [facility] Last mammogram date: 08/26/2020 12/13/19 Last Documented On 2 2:21PM ; [facility] Result: normal 08/21/2022 Last Documented On 2 2:21PM ; [facility] Primary Care Provider: Dr. Nicole 022 Last Documented On 2 3:26PM ; [facility] A colonoscopy was performed 05/07/14 STA 12/02/2020 Last Documented On 2 2:21PM ; [facility] Patient recently had a dexa scan 018 [facility] 12/02/2020 Last Documented On 2 2:21PM ; [facility] Last pap smear date 04/10/2014 12/02/2020 Last Documented On 2 2:21PM ; [facility] LMP: 1983 12/02/2020 Last Documented On 2 2:21PM ; [facility] GLUTEN FREE-- avoiding Wheat , Dairy, and Potato per her report. ~Pt states has mild fibromyalgia dx'd in 2017: itching, neuropathy, carpal tunnnel again bilaterally, achiness, insomnia 08/08/2018 Last Documented On 2 2:21PM ; [facility] Not sexually active 08/08/2018 Last Documented On 2 2:21PM ; [facility] Vaginal delivery 07/03/2016 Last Documented On 2 2:21PM ; [facility] History of osteopenia 04/10/2014 Last Documented On 2 2:21PM ; [facility] History of chronic reflux esophagitis Last Documented On 2 2:21PM ; [facility] Recent change in medical his tory asthma on inhalers ~EGD 04/03/14 Dr Craig gastritis, ulcer, Pancho's, and hiatal hernia. Had CT with contrast 04/09/14 04/10/2014 Last Documented On 2 2:21PM ; [facility] Aborta 1 02/22/2012 Last Documented On 2 2:21PM ; [facility] 3 02/22/2012 Last Documented On 2 2:21PM ; [facility] Para 2 02/22/2012 Last Documented On 2 2:21PM ; [facility] History of urinary tract infection 02/21 Last Documented On 2 2:21PM ; [facility] Not using contraception 02/22/2012 Last Documented On 2 2:21PM ; [facility] Result: normal AND HPV NEGATIVE 02/22/20 12 Last Documented On 2 2:21PM ; [facility] Family History Includes: Family History addressed during this encounter Description Last Updated Family history of heart disease BROTHER AND SISTERS 02/22/2012 Last Documented On 2 2:21PM ; [facility] Family history of hypercholesterolemia P ATIENT AND PARENTS 02/22/2012 Last Documented On 2 2:21PM ; [facility] Family history of hypertension PATIENT A ND FAMILY HX OF 02/22/2012 Last Documented On 2 2:21PM ; [facility] Review of Systems Includes: Review of Systems [...] Documented On 6 9:52AM ; [facility] POTATO Allergy 02/22/2012 Resolved Last Documented On 6 9:52AM ; [facility] Morphine Sulfate ER Allergy Nausea, Vomiting 08/21/2022 Active Last Documented On 4 1:41PM ; [facility] Macrolides and Ketolides Allergy Nausea 08/08/2018 Active Last Documented On 4 1:41PM ; [facility] Levaquin Allergy 08/08/2018 Active Last Documented On 4 1:41PM ; [facility] Note: tendonitis from taking per pt GLUTEN Allergy 02/22/2012 Resolved Last Documented On 6 9:52AM ; [facility] DAIRY Allergy 02/22/2012 Resolved Last Documented On 6 9:52AM ; [facility] Cipro Allergy 08/08/2018 Active Last Documented On 4 1:41PM ; [facility] Note: tendonitis from it Encounters Encounter Provider Location Date Check-In Time Check-Out Time Diagnosis [facility] - ESTABLISHED PT MICHAELA GONSALES MD [facility] 06/08/20 22 2:10PM 2:37PM Insurance Includes: Active Insurance Policies Plan Name Member ID Group # Subscriber Relationship Effect jerry Dates 1 - MEDICARE PART A CLAIMS/NGS [id number] [employer] Self 2 - [facility] [id number] [employer] Clinical Notes Includes: Clinical Notes from this encounter No Clinical Notes Recorded
--- OUTSIDE RECORDS SUMMARY | 2025-02-16 15:26 | XMS_ITS | Encounter Summary ---
Author Organization [facility] Address [address] [place] [address] Care Team Providers Care Daycare Provider Name Role Phone Bonnie Jolley MD Primary Care Provider [phone] Max Cervantes MD Primary Care Provider [phone] Bonnie Jolley MD Unavailable [phone] Jory Paz NP Primary Care Provider + Encounter Details Date Type Department Care Team (Late st Contact Info) Description 10/08/2021 Telephone [facility] [id number] [place] [address] Nery Monroy RN Social History Tobacco Use Types Packs/Day Years Used Date Smoking Tobacco: Never Smokeless Tobacco: Never Alcohol Use Standard Drinks/Week Comments Yes 0 (1 standard drink = 0.6 oz pur e alcohol) very rarely AUDIT-C Answer Date Recorded Q1: How often do you have a drink containing alc ohol? Monthly or less 08/22/2021 Q2: How many drinks containi ng alcohol do you have on a typical day when you are drinking? 1 or 2 08/22/2021 Q3: How often do you have si x or more drinks on one occasion? 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 Author CCM Chronic Pain Care Plan Chronic Care Management Etta Adams V., RN Note: Problem: Chronic Pain Goals: 1. Minimize further functional decline 2. Maximize quality of life 3. Control pain Strategies: - Activity/exercise program recommendation - Conservative stepwise pain medicine strategy with multi-disciplinary approach - Recommend healthy lifestyle strategies and compensatory methods as needed documented as of this encounter Visit Diagnoses Not on filedocumented in this encounter Care Teams Daycare Provider Relationship Specialty Start Date End Date Bonnie Jolley MD PCP - General Family Medicine 01/20/19 10/03/23 Max Cervantes MD [facility] [address] PCP - General Family Medicine 10/04/23 12/04/24 Jory Paz NP [facility] [address] [address] PCP - General Nurse Practitioner 12/05/24 Bonnie Jolley MD Referring Physician Family Medicine 10/04/23 documented as of this encounter
--- OUTSIDE RECORDS SUMMARY | 2025-02-16 15:26 | XMS_ITS | Encounter Summary ---
Author Organization [employer] Address 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
== END 2025-02-16 15:18 | disposition home or self-care (01) ==
PROVIDERS: Visit Provider Physician Assistant Medical
DX: N20.0 Calculus of kidney (principal)
CPT/HCPCS: 74018